=== PATIENT | male | born 1950 | race Caucasian/White ===

== ENCOUNTER → 2019-03-19 | Outpatient (CLI) | payer MEDICARE, MEDICAID, SELFPAY | PROVIDERS: Family Provider Family Medicine; Visit Provider Family Medicine | DX: M79.632 Pain in left forearm (principal) | CPT/HCPCS: 73090 ==

== ENCOUNTER → 2019-03-26 08:46 | Outpatient (BNVA) | payer MEDICARE, MEDICAID, SELFPAY | PROVIDERS: Family Provider Family Medicine; PCP Family Medicine; Visit Provider Psychiatry & Neurology Psychiatry | DX: F33.42 Major depressive disorder, recurrent, in full remission (principal); F43.12 Post-traumatic stress disorder, chronic | CPT/HCPCS: 99213 ==

== ENCOUNTER 2019-04-03 10:56 | Outpatient (CLI) | payer MEDICARE, MEDICAID, SELFPAY ==
[2019-04-03 12:01] LABS: Basophils % 1.1 %; Eosinophils # 0.1 10^3/uL (0.0-0.8); Eosinophils % 1.7 %; Hematocrit 45.5 % (42.0-52.0); Hemoglobin 14.1 g/dL (11.7-16.6); Lymphocytes # 0.8 10^3/uL (0.8-4.8); Lymphocytes % 21.9 %; Mean Corpuscular Volume 93.4 fL (80-94); Mean Platelet Volume 12.5 fL (7.4-10.4); Monocytes # 0.5 10^3/uL (0.2-0.9); Monocytes % 12.5 %; Neutrophils # 2.3 10^3/uL (1.8-7.7); Neutrophils % 62.2 %; Nucleated Red Blood Cells % 0 %; Platelet Count 72 10^3/cmm (130-400); Red Blood Count 4.87 10^6/uL (4.1-5.3); Red Cell Distribution Width 15.7 % (12.1-15.1); White Blood Count 3.6 10^3/uL (4.0-10.0)
--- NOTE | 2019-04-03 14:07 | ONC FU_ITS ---
Dr. Barrera follow up note Patient: Miguel Aguilar Unit #: [id number]: 1950 Dicatated By: Olivia Barrera M.D.Date of Visit:Apr 03, 2019 Onc Med Follow-up/Prog Note History of Present Illness: Mr. Tiago Aguilar, is a 68 -year-old gentleman with history of isolated , mild progressive thrombocytopenia since 2015, as per his PMD in June 2015 his platelet count was 124,000 and recently done CBC on 07/10/2018 showed white blood count 3.9 hemoglobin 14.2 crit 44.3 platelets 81,000 with a normal differential and as per discussion with his PMD, as per record splenomegaly was noted in CT scan of abdomen done in November 2014 and again in July 2016 and recently on 04/16/2018 which confirmed stable splenomegaly with no retroperitoneal or para-aortic lymphadenopathy. Patient is complaining of night sweats for the last 6 month and about 25 pounds weight loss in the last month and half. Appetite is reasonable no fever or chills otherwise, no peripheral lymphadenopathy .no alcohol use Patient has a history of large infrarenal abdominal aortic aneurysm for which he has been followed up by surgeon in [place] Patient denies any history of melena hematochezia or hemoptysis or hematemesis, patient denies any history of petechiae or ecchymosis, patient denies any history of gross bleeding, denies any history of platelet transfusion, denies any history of jaundice, denies any history of urine or stool color changes. Came for follow-up, denies any specific complaints, no melena or hematochezia, no nausea or vomiting, no diarrhea or constipation, no petechiae or ecchymosis no gum bleed of nosebleed. As per patient in 6 weeks ago he underwent abdominal aneurysm repair and tolerated procedure well now left shoulder repair is under consideration. Medications: Advair Diskus Aerosol Powder, Breath Activated Inhalation, Albuterol Sulfate Nebulization solution Inhalation, clonazePAM 1 Tablet (of 1 mg) Oral four times a day PRN, Mobic 1 Tablet (of 15 mg) Oral daily, Morphine Sulfate 2 Tablet (of 30 mg) Oral t.i.d., OxyCONTIN 1 Tablet Oral b.i.d., PriLOSEC 1 Capsule (of 20 mg) Capsule Delayed Release Oral daily, ProAir HFA Aerosol, solution Inhalation daily Allergies: Propofol, traMADol HCl, and traZODone HCl. Review of Systems: Constitutional - Pt reports that his appetite has improved. Weight has increased 2 lbs since last visit, ENMT - He has some hearing loss, Respiratory - He has some shortness of breath on exertion, Cardiovascular - No anginal chest pain, palpitations or orthopnea, Gastrointestinal - No nausea or vomiting, no diarrhea or constipation, no change in bowels, Genitourinary (M) - No hematuria, dysuria, increased frequency, urgency, hesitancy or incontinence, Musculoskeletal - Pt reports chronic back and hip pain, radiating down to feet, Neurologic - No headache, blurred vision, and no areas of focal weakness or numbness. Normal gait. No sensory problems, Psychiatric - Occasional depression. Vital Signs: Performed on Apr 03, 2019 12:50 Height - 65.00 in Weight - 156.4 lbs (HIGH) BSA - 1.78 sq.m BMI - 26.03 Temperature - 98.0 F (LOW) Pulse - 90 /min Respiration - 18 /min BP - 118/60 mm(hg) O2 Sat - 97 % Pain - 7 Performance Status: 2 - Ambulatory/capable of all self-care, unable to perform any work activities. Up and about more than 50% of waking hours. (ECOG) Physical Examination: ENMT - No oral exudates, ulcers, masses, thrush or mucositis. Oropharynx clear. Tongue normal, Respiratory - Lungs are clear to auscultation without rhonchi or wheezing, Cardiovascular - Regular rate and rhythm of heart, Extremities - no edema. Lab/Imaging: Test performed on Apr 03, 2019 11:10 WBC 3.6 10 3/uL RBC 4.87 10^12/L HGB 14.1 g/dL HCT 45.5 % MCV 93.4 fL MCH 29.0 pg MCHC 31.0 g/dL RDW 15.7 % Platelet Count 72 10 3/cmm MPV 12.5 fL Lymphocytes 0.8 10^9/L Neutrophils 0.0 10 3/uL Monocytes 0.5 10^9/L Eosinophils 0.1 10^9/L Basophils 0.0 10^9/L Neutrophil % 1.7 % Manual Lymphocytes 21.9 % Manual Monocytes 12.5 % Manual Eosinophils 1.7 % Manual Basophils 1.1 % NRBCs 0.0 /100 WBC Impression: Isolated mild to moderate thrombocytopenia, etiology unclear could be multifactorial including splenic sequestration due to splenomegaly (seen on repeated CT scan of abdomen done for aneurysm since 2014) and/or medication like Lyrica, omperazole, or even amlodipine and or considering his age underlying myelodysplasia cannot be ruled out, or mild ITP. Night sweats and weight loss, etiology unclear, poor nutrition due to underlying depression/adjustment disorder or social/family issues or lymphoproliferative disorder But Less likely, in the absence of peripheral or central lymphadenopathy and with no evidence of lymphocytosis. Splenomegaly since 2014, etiology unclear, Infrarenal aortic aneurysm Status post repair Plan: Discussed with patient regarding his labs white blood count 3.6 hemoglobin 14.1 crit 46.6 platelets 72,000 Clinically, patient is doing well, no sign symptom suggestive of gross bleeding, hemoglobin is stable, persistent thrombocytopenia but stable platelets count. We'll continue to monitor and he will return to clinic in one month with CBC and manual platelet count. Patient was advised to avoid any kind of trauma or aspirin or NSAIDs. Signed By: Olivia Barrera M.D. <<Signature on File>>
== END 2019-04-03 10:57 | disposition home or self-care (01) ==
LOC: ONCMED 11:00
PROVIDERS: Family Provider Family Medicine; PCP Family Medicine; Visit Provider Internal Medicine Hematology & Oncology
DX: D69.6 Thrombocytopenia, unspecified (principal); R16.1 Splenomegaly, not elsewhere classified; Z79.899 Other long term (current) drug therapy
CPT/HCPCS: 36415; 85025; G0463

== ENCOUNTER 2019-05-08 13:35 | Outpatient (CLI) | payer MEDICARE, MEDICAID, SELFPAY ==
[2019-05-08 14:23] LABS: Hematocrit 44.4 % (42.0-52.0); Hemoglobin 13.9 g/dL (11.7-16.6); Mean Corpuscular HGB Conc 31.3 g/dL (30.0-36.0); Mean Corpuscular Hemoglobin 29.3 pg (28.0-34.0); Mean Corpuscular Volume 93.7 fL (80-94); Mean Platelet Volume 12.7 fL (7.4-10.4); Platelet Count 61 10^3/cmm (130-400); Red Blood Count 4.74 10^6/uL (4.1-5.3); Red Cell Distribution Width 15.6 % (12.1-15.1); White Blood Count 3.9 10^3/uL (4.0-10.0)
[2019-05-08 14:55] LABS: Absolute Segmented Neutrophil 2.6 10/cmm (1.6-7.1); Band Neutrophils Absolute 0.1 10^3/cmm (0.0-1.2); Segmented Neutrophils 68 %; Total Cells Counted 100 (0-100)
[2019-05-08 14:56] LABS: Anisocytosis Trace; Eosinophils 1 %; Lymphocytes 21 %; Monocytes Absolute 0.3 10^3/cmm (0.1-0.6); Platelet Estimate Decreased (Normal)
--- NOTE | 2019-05-09 11:15 | ONC FU_ITS ---
Dr. Barrera follow up note Patient: Miguel Aguilar Unit #: [id number]: 1950 Dicatated By: Olivia Barrera M.D.Date of Visit:May 08, 2019 Onc Med Follow-up/Prog Note History of Present Illness: Mr. Tiago Aguilar, is a 68 -year-old gentleman with history of isolated , mild progressive thrombocytopenia since 2015, as per his PMD in June 2015 his platelet count was 124,000 and recently done CBC on 07/10/2018 showed white blood count 3.9 hemoglobin 14.2 crit 44.3 platelets 81,000 with a normal differential and as per discussion with his PMD, as per record splenomegaly was noted in CT scan of abdomen done in November 2014 and again in July 2016 and recently on 04/16/2018 which confirmed stable splenomegaly with no retroperitoneal or para-aortic lymphadenopathy. Patient is complaining of night sweats for the last 6 month and about 25 pounds weight loss in the last month and half. Appetite is reasonable no fever or chills otherwise, no peripheral lymphadenopathy .no alcohol use Patient has a history of large infrarenal abdominal aortic aneurysm for which he has been followed up by surgeon in [place],and underwent aneurysm repair on 02/01/2019 Came for follow-up, denies any specific complaint except chronic pain involving the shoulder back hips and being managed in pain clinic. Denies any evidence of gross bleeding, no petechiae or ecchymosis no melena or hematochezia no hemoptysis or hematemesis no dysuria or hematuria. Medications: Advair Diskus Aerosol Powder, Breath Activated Inhalation, Albuterol Sulfate Nebulization solution Inhalation, clonazePAM 1 Tablet (of 1 mg) Oral four times a day PRN, Mobic 1 Tablet (of 15 mg) Oral daily, Morphine Sulfate 2 Tablet (of 30 mg) Oral t.i.d., OxyCONTIN 1 Tablet Oral b.i.d., PriLOSEC 1 Capsule (of 20 mg) Capsule Delayed Release Oral daily, ProAir HFA Aerosol, solution Inhalation daily Allergies: Propofol, traMADol HCl, and traZODone HCl. Review of Systems: Review of Systems is not available for this patient. Vital Signs: Performed on May 08, 2019 15:18 Height - 65.00 in Weight - 160.2 lbs (HIGH) BSA - 1.80 sq.m BMI - 26.66 Temperature - 98.3 F (LOW) Pulse - 90 /min Respiration - 18 /min BP - 144/67 mm(hg) (HIGH) O2 Sat - 96 % Pain - 8 Performance Status: 1 - No physically strenuous activity, but ambulatory and able to carry out light or sedentary work (e.g. office work, light house work). (ECOG) Physical Examination: ENMT - No oral exudates, ulcers, masses, thrush or mucositis. Oropharynx clear. Tongue normal, Respiratory - Lungs are clear to auscultation without rhonchi or wheezing, Cardiovascular - Regular rate and rhythm of heart, Abdomen - Non-tender, non-distended, Good bowel sounds. No guarding or rebound tenderness. No pulsatile masses, Extremities - no edema or rash. Lab/Imaging: Test performed on Apr 03, 2019 11:10 WBC 3.6 10 3/uL RBC 4.87 10^12/L HGB 14.1 g/dL HCT 45.5 % MCV 93.4 fL MCH 29.0 pg MCHC 31.0 g/dL RDW 15.7 % Platelet Count 72 10 3/cmm MPV 12.5 fL Lymphocytes 0.8 10^9/L Neutrophils 0.0 10 3/uL Monocytes 0.5 10^9/L Eosinophils 0.1 10^9/L Basophils 0.0 10^9/L Neutrophil % 1.7 % Manual Lymphocytes 21.9 % Manual Monocytes 12.5 % Manual Eosinophils 1.7 % Manual Basophils 1.1 % NRBCs 0.0 /100 WBC Impression: Isolated mild to moderate thrombocytopenia, etiology unclear could be multifactorial including splenic sequestration due to splenomegaly (seen on repeated CT scan of abdomen done for aneurysm since 2014) and/or medication like Lyrica, omperazole, or even amlodipine and or considering his age underlying myelodysplasia cannot be ruled out, or mild ITP. Night sweats and weight loss, etiology unclear, poor nutrition due to underlying depression/adjustment disorder or social/family issues or lymphoproliferative disorder But Less likely, in the absence of peripheral or central lymphadenopathy and with no evidence of lymphocytosis. 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 We'll continue to monitor and return to clinic in 3 months with CBC Signed By: Olivia Barrera M.D. <<Signature on File>>
== END 2019-05-08 13:36 | disposition home or self-care (01) ==
LOC: ONCMED 13:38
PROVIDERS: Family Provider Family Medicine; PCP Family Medicine; Visit Provider Internal Medicine Hematology & Oncology
DX: D69.6 Thrombocytopenia, unspecified (principal); R16.1 Splenomegaly, not elsewhere classified; Z79.891 Long term (current) use of opiate analgesic
CPT/HCPCS: 85007; 85027; G0463

== ENCOUNTER → 2019-05-09 13:03 | Outpatient (BNVA) | payer MEDICARE, MEDICAID, SELFPAY | PROVIDERS: Family Provider Family Medicine; PCP Family Medicine; Visit Provider Anesthesiology | DX: G89.29 Other chronic pain (principal); M54.5 Low back pain; M79.651 Pain in right thigh; M79.652 Pain in left thigh; F17.210 Nicotine dependence, cigarettes, uncomplicated; Z79.891 Long term (current) use of opiate analgesic; Z71.6 Tobacco abuse counseling | CPT/HCPCS: 99214 ==

== ENCOUNTER → 2019-06-25 08:25 | Outpatient (BNVA) | payer MEDICARE, MEDICAID, SELFPAY | PROVIDERS: Family Provider Family Medicine; PCP Family Medicine; Visit Provider Psychiatry & Neurology Psychiatry | DX: F33.42 Major depressive disorder, recurrent, in full remission (principal); F43.12 Post-traumatic stress disorder, chronic; F17.200 Nicotine dependence, unspecified, uncomplicated | CPT/HCPCS: 99213 ==

== ENCOUNTER 2019-09-02 11:56 | Outpatient (CLI) | payer MEDICARE, MEDICAID, SELFPAY ==
[2019-09-02 12:39] LABS: Basophils % 0.8 %; Hematocrit 44.9 % (42.0-52.0); Hemoglobin 14.2 g/dL (11.7-16.6); Lymphocytes # 0.8 10^3/uL (0.8-4.8); Lymphocytes % 21.4 %; Mean Corpuscular HGB Conc 31.6 g/dL (30.0-36.0); Mean Corpuscular Volume 91.8 fL (80-94); Mean Platelet Volume 12.2 fL (7.4-10.4); Monocytes # 0.4 10^3/uL (0.2-0.9); Monocytes % 10.7 %; Neutrophils # 2.5 10^3/uL (1.8-7.7); Neutrophils % 65.6 %; Nucleated Red Blood Cells % 0 %; Platelet Count 67 10^3/cmm (130-400); Red Blood Count 4.89 10^6/uL (4.1-5.3); Red Cell Distribution Width 15.1 % (12.1-15.1); White Blood Count 3.8 10^3/uL (4.0-10.0)
--- NOTE | 2019-09-02 14:33 | ONC FU_ITS ---
Dr. Barrera follow up note Patient: Miguel Aguilar Unit #: [id number]: 1950 Dicatated By: Olivia Barrera M.D.Date of Visit:Sep 02, 2019 Onc Med Follow-up/Prog Note History of Present Illness: Mr. Tiago Aguilar, is a 68 -year-old gentleman with history of isolated , mild progressive thrombocytopenia since 2015, as per his PMD in June 2015 his platelet count was 124,000 and recently done CBC on 07/10/2018 showed white blood count 3.9 hemoglobin 14.2 crit 44.3 platelets 81,000 with a normal differential and as per discussion with his PMD, as per record splenomegaly was noted in CT scan of abdomen done in November 2014 and again in July 2016 and recently on 04/16/2018 which confirmed stable splenomegaly with no retroperitoneal or para-aortic lymphadenopathy. Patient is complaining of night sweats for the last 6 month and about 25 pounds weight loss in the last month and half. Appetite is reasonable no fever or chills otherwise, no peripheral lymphadenopathy .no alcohol use Patient has a history of large infrarenal abdominal aortic aneurysm for which he has been followed up by surgeon in [place],and underwent aneurysm repair on 02/01/2019 Came for follow-up, denies any specific complaints, no nosebleed or gum bleed, no petechia or ecchymosis, no melena or hematochezia, no hemoptysis or hematemesis, or hematuria. Medications: Advair Diskus Aerosol Powder, Breath Activated Inhalation, Albuterol Sulfate Nebulization solution Inhalation, clonazePAM 1 Tablet (of 1 mg) Oral four times a day PRN, Mobic 1 Tablet (of 15 mg) Oral daily, Morphine Sulfate 2 Tablet (of 30 mg) Oral t.i.d., OxyCONTIN 1 Tablet Oral b.i.d., PriLOSEC 1 Capsule (of 20 mg) Capsule Delayed Release Oral daily, ProAir HFA Aerosol, solution Inhalation daily Allergies: Propofol, traMADol HCl, and traZODone HCl. Review of Systems: Constitutional - Pt reports that his appetite has improved. Weight has increased 2 lbs since last visit, ENMT - He has some hearing loss, Respiratory - He has some shortness of breath on exertion, Cardiovascular - No anginal chest pain, palpitations or orthopnea, Gastrointestinal - No nausea or vomiting, no diarrhea or constipation, no change in bowels, Genitourinary (M) - No hematuria, dysuria, increased frequency, urgency, hesitancy or incontinence, Musculoskeletal - Pt reports chronic back and hip pain, radiating down to feet, Neurologic - No headache, blurred vision, and no areas of focal weakness or numbness. Normal gait. No sensory problems, Psychiatric - Positive for anxiety and depression. Vital Signs: Performed on Sep 02, 2019 13:02 Height - 73.00 in (HIGH) Weight - 164.6 lbs (HIGH) BSA - 1.98 sq.m BMI - 21.72 Temperature - 97.5 F (LOW) Pulse - 86 /min Respiration - 30 /min (HIGH) BP - 139/61 mm(hg) O2 Sat - 96 % Pain - 7 Performance Status: 1 - No physically strenuous activity, but ambulatory and able to carry out light or sedentary work (e.g. office work, light house work). (ECOG) Physical Examination: ENMT - No mouth sores, no thrush, no jaundice, Respiratory - Lungs are clear to auscultation, Cardiovascular - Regular rate and rhythm of heart, Abdomen - Soft, bowel sounds present, Extremities - No visible edema. Lab/Imaging: Test performed on Apr 03, 2019 11:10 WBC 3.6 10 3/uL RBC 4.87 10^12/L HGB 14.1 g/dL HCT 45.5 % MCV 93.4 fL MCH 29.0 pg MCHC 31.0 g/dL RDW 15.7 % Platelet Count 72 10 3/cmm MPV 12.5 fL Lymphocytes 0.8 10^9/L Neutrophils 0.0 10 3/uL Monocytes 0.5 10^9/L Eosinophils 0.1 10^9/L Basophils 0.0 10^9/L Neutrophil % 1.7 % Manual Lymphocytes 21.9 % Manual Monocytes 12.5 % Manual Eosinophils 1.7 % Manual Basophils 1.1 % NRBCs 0.0 /100 WBC Impression: Isolated mild to moderate thrombocytopenia, etiology unclear could be multifactorial including splenic sequestration due to splenomegaly (seen on repeated CT scan of abdomen done for aneurysm since 2014) and/or medication like Lyrica, omperazole, or even amlodipine and or considering his age underlying myelodysplasia cannot be ruled out, or mild ITP. Night sweats and weight loss, etiology unclear, poor nutrition due to underlying depression/adjustment disorder or social/family issues or lymphoproliferative disorder But Less likely, in the absence of peripheral or central lymphadenopathy and with no evidence of lymphocytosis. Splenomegaly since 2014, etiology unclear, Infrarenal aortic aneurysm Status post repair Plan: Discussed with patient regarding his labs white blood count 3800 hemoglobin 14.2 hematocrit 44.9 platelets 67,000 with a normal differential Clinically, patient is doing well with no sign suggestive of gross bleeding, his follow-up CBC showed normal hemoglobin and stable mild leukopenia and moderate thrombocytopenia but no significant change when compared with CBC from April 03, 2019, again etiology could be splenic sequestration but cause of splenomegaly still unknown , could be due to portal hypertension or low-grade lymphoproliferative disorder, again role of bone marrow evaluation was discussed and patient declined again, prefer observation, knowing the risks versus benefits. We will continue to monitor patient was advised to avoid NSAID or aspirin or any kind of trauma and he will return to clinic in 3 months with CBC Signed By: Olivia Barrera M.D. <<Signature on File>>
== END 2019-09-02 11:57 | disposition home or self-care (01) ==
LOC: ONCMED 12:01
PROVIDERS: Family Provider Family Medicine; PCP Family Medicine; Visit Provider Internal Medicine Hematology & Oncology
DX: D69.6 Thrombocytopenia, unspecified (principal); R16.1 Splenomegaly, not elsewhere classified; I71.4 Abdominal aortic aneurysm, without rupture; J44.9 Chronic obstructive pulmonary disease, unspecified; M19.90 Unspecified osteoarthritis, unspecified site; R61 Generalized hyperhidrosis; R63.4 Abnormal weight loss
CPT/HCPCS: 85025; G0463

== ENCOUNTER 2019-10-02 13:30 | Outpatient (CLI) | payer MEDICARE, MEDICAID, SELFPAY ==
--- NOTE | 2019-10-02 13:44 | CT_ITS ---
WS: [id number] CT scan of the abdominal aorta. Additional two-dimensional coronal and sagittal reconstruction was pe rformed. MIP images were also performed. 10/02/2019 Clinical Data: AAA WITHOUT RUPTURE Comparison: CT abdomen and pelvis, 04/16/2018. DLP: 3004.[address] scans at [facility] use at least one of these dose optimization techniques: automat ed exposure control; mA and/or kV adjustment per patient size (includes targeted exams where dose is matched to clinical indication); or iterative reconstruction. Findings: Abdominal aorta: There is an aortic stent graft extending throughout the abdominal aorta with the legs into the common iliac arteries. No leakage is seen from the stent graft. The renal arteries, celiac artery and super ior mesenteric arteries appear to be normal. The inferior mesenteric artery is also visualized. Abdominal and pelvic findings: The lower lungs show no nodules, masses or effusions. There are changes of chronic obstructive pulmon linda disease. The liver and pancreas are normal. There is splenomegaly unchanged. There is a left adre nal adenoma and the right adrenal gland is normal. There are clips in the gallbladder fossa from a ch olecystectomy. The kidneys show excellent bilateral contrast excretion with a 2.0 medial right cortic al cyst. The appendix shows no evidence of appendicitis. The stomach, small bowel and colon show only sigmoid diverticula. There is a large amount of fecal material in the colon. No abscess, adenopathy, ascites, mass, obstruction or free air is noted. The bladder and prostate are not remarkable. There is a left hip prosthesis in position. CT/CT angio abdomen pelvis 77990 Impression: 1. Aortic stent graft which shows no leakage and is preparing the abdominal aor tic aneurysm. 2. Multiple chronic abdominal and pelvic findings are unchanged.
[2019-10-02 14:17] LABS: Blood Urea Nitrogen 13 mg/dL (8-23); Glomerular Filtration Rate 83.4 mL/min (90-130)
[2019-10-02] MEDS: iohexol 350 mg/mL 100 mL Btl IV (14:31)
== END 2019-10-02 13:31 | disposition home or self-care (01) ==
LOC: RADWPI 13:34
PROVIDERS: Radiology Diagnostic Radiology; Family Provider Family Medicine; PCP Family Medicine; Visit Provider Surgery
DX: I71.4 Abdominal aortic aneurysm, without rupture (principal)
CPT/HCPCS: 74174; 82565; 84520; Q9967

== ENCOUNTER → 2019-10-09 08:39 | Outpatient (BNVA) | payer MEDICARE, MEDICAID, SELFPAY | PROVIDERS: Family Provider Family Medicine; PCP Family Medicine; Visit Provider Anesthesiology | DX: G89.29 Other chronic pain (principal); M54.41 Lumbago with sciatica, right side; M54.42 Lumbago with sciatica, left side; F17.210 Nicotine dependence, cigarettes, uncomplicated; Z79.891 Long term (current) use of opiate analgesic | CPT/HCPCS: 99214 ==

== ENCOUNTER → 2019-10-11 07:39 | Outpatient (BNVA) | payer MEDICARE, MEDICAID, SELFPAY | PROVIDERS: Family Provider Family Medicine; PCP Family Medicine; Visit Provider Psychiatry & Neurology Psychiatry | DX: F33.42 Major depressive disorder, recurrent, in full remission (principal); F43.12 Post-traumatic stress disorder, chronic | CPT/HCPCS: 99213 ==

== ENCOUNTER → 2019-12-13 08:17 | Outpatient (BNVA) | payer MEDICARE, MEDICAID, SELFPAY | PROVIDERS: Family Provider Family Medicine; PCP Family Medicine; Visit Provider Anesthesiology | DX: G89.29 Other chronic pain (principal); M54.41 Lumbago with sciatica, right side; M54.42 Lumbago with sciatica, left side; F17.210 Nicotine dependence, cigarettes, uncomplicated; Z79.891 Long term (current) use of opiate analgesic | CPT/HCPCS: 99213; 99214 ==

== ENCOUNTER → 2020-01-07 07:30 | Outpatient (BNVA) | payer MEDICARE, MEDICAID, SELFPAY | PROVIDERS: Family Provider Family Medicine; PCP Family Medicine; Visit Provider Psychiatry & Neurology Psychiatry | DX: F43.12 Post-traumatic stress disorder, chronic (principal); F33.42 Major depressive disorder, recurrent, in full remission; F17.200 Nicotine dependence, unspecified, uncomplicated | CPT/HCPCS: 99213 ==

== ENCOUNTER 2020-01-13 10:51 | Outpatient (CLI) | payer MEDICARE, MEDICAID, SELFPAY ==
[2020-01-13 11:18] LABS: Basophils % 0.6 %; Eosinophils % 0.6 %; Hematocrit 42.9 % (42.0-52.0); Hemoglobin 13.6 g/dL (11.7-16.6); Lymphocytes # 0.6 10^3/uL (0.8-4.8); Lymphocytes % 18.4 %; Mean Corpuscular HGB Conc 31.7 g/dL (30.0-36.0); Mean Corpuscular Hemoglobin 28.6 pg (28.0-34.0); Mean Corpuscular Volume 90.1 fL (80-94); Mean Platelet Volume 11.8 fL (7.4-10.4); Monocytes # 0.3 10^3/uL (0.2-0.9); Neutrophils % 71.1 %; Nucleated Red Blood Cells % 0 %; Platelet Count 74 10^3/cmm (130-400); Red Blood Count 4.76 10^6/uL (4.1-5.3); White Blood Count 3.1 10^3/uL (4.0-10.0)
--- NOTE | 2020-01-13 13:52 | ONC FU_ITS ---
Dr. Barrera follow up note Patient: Miguel Aguilar Unit #: [id number]: 1950 Dicatated By: Olivia Barrera M.D.Date of Visit:Jan 13, 2020 Onc Med Follow-up/Prog Note History of Present Illness: Mr. Tiago Aguilar, is a 69 -year-old gentleman with history of isolated , mild progressive thrombocytopenia since 2015, as per his PMD in June 2015 his platelet count was 124,000 and recently done CBC on 07/10/2018 showed white blood count 3.9 hemoglobin 14.2 crit 44.3 platelets 81,000 with a normal differential and as per discussion with his PMD, as per record splenomegaly was noted in CT scan of abdomen done in November 2014 and again in July 2016 and recently on 04/16/2018 which confirmed stable splenomegaly with no retroperitoneal or para-aortic lymphadenopathy. Patient is complaining of night sweats for the last 6 month and about 25 pounds weight loss in the last month and half. Appetite is reasonable no fever or chills otherwise, no peripheral lymphadenopathy .no alcohol use Patient has a history of large infrarenal abdominal aortic aneurysm for which he has been followed up by surgeon in [place],and underwent aneurysm repair on 02/01/2019 Came for follow-up, denies any specific complaints, no fever chills, no nausea or vomiting, no nosebleed or gum bleed no petechia or ecchymosis, no melena or hematochezia, no hematuria Medications: Advair Diskus Aerosol Powder, Breath Activated Inhalation, Albuterol Sulfate Nebulization solution Inhalation, clonazePAM 1 Tablet (of 1 mg) Oral four times a day PRN, Mobic 1 Tablet (of 15 mg) Oral daily, Morphine Sulfate 2 Tablet (of 30 mg) Oral t.i.d., OxyCONTIN 1 Tablet Oral b.i.d., PriLOSEC 1 Capsule (of 20 mg) Capsule Delayed Release Oral daily, ProAir HFA Aerosol, solution Inhalation daily Allergies: Propofol, traMADol HCl, and traZODone HCl. Review of Systems: Constitutional - Pt reports that his appetite has improved. Weight is stable, ENMT - He has some hearing loss, Respiratory - He has some shortness of breath on exertion, Cardiovascular - No anginal chest pain, palpitations or orthopnea, Gastrointestinal - No nausea or vomiting, no diarrhea or constipation, no change in bowels, Genitourinary (M) - No hematuria, dysuria, increased frequency, urgency, hesitancy or incontinence, Musculoskeletal - Pt reports chronic back and hip pain, radiating down to feet, Neurologic - No headache, blurred vision, and no areas of focal weakness or numbness. Normal gait. No sensory problems, Psychiatric - Positive for anxiety and depression. Vital Signs: Performed on Jan 13, 2020 12:32 Height - 73.00 in Weight - 164.8 lbs (HIGH) BSA - 1.98 sq.m BMI - 21.74 Temperature - 98.0 F (LOW) Pulse - 93 /min Respiration - 18 /min BP - 132/68 mm(hg) O2 Sat - 97 % Pain - 7 Performance Status: 0 - Fully active, able to carry on all predisease activities without restrictions. (ECOG) Physical Examination: ENMT - No mouth sores, no thrush, no jaundice, Respiratory - Lungs are clear to auscultation, Cardiovascular - Regular rate and rhythm of heart, Abdomen - Soft, bowel sounds present, Spleen palpable in left upper quadrant, Extremities - No visible edema. Lab/Imaging: Test performed on Sep 02, 2019 12:13 WBC 3.8 10 3/uL RBC 4.89 10 6/uL HGB 14.2 g/dL HCT 44.9 % MCV 91.8 fL MCH 29.0 pg MCHC 31.6 g/dL RDW 15.1 % Platelet Count 67 10 3/cmm MPV 12.2 fL Neutrophils 2.5 10 3/uL Lymphocytes 0.8 10 3/uL Monocytes 0.4 10 3/uL Eosinophils 0.0 10 3/uL Basophils 0.0 10 3/uL Neutrophil % 65.6 % Lymphocyte % 21.4 % Monocyte % 10.7 % Eosinophil % 1.0 % Basophils % 0.8 % NRBC % 0 % Impression: mild to moderate thrombocytopenia,/Leukopenia, etiology unclear could be multifactorial including splenic sequestration due to splenomegaly (seen on repeated CT scan of abdomen done for aneurysm since 2014) and/or medication like Lyrica, omperazole, or even amlodipine and or considering his age underlying myelodysplasia cannot be ruled out, or mild ITP. Night sweats and weight loss, etiology unclear, poor nutrition due to underlying depression/adjustment disorder or social/family issues or lymphoproliferative disorder But Less likely, in the absence of peripheral or central lymphadenopathy and with no evidence of lymphocytosis. Splenomegaly since 2014, etiology unclear, Infrarenal aortic aneurysm Status post repair Plan: Discussed with patient regarding his labs white blood count 3.1 hemoglobin 13.6 hematocrit 42.9 platelets 74,000 compared to 67,000 on September 02, 2019 Clinically, patient is doing well with no sign symptom suggestive of gross bleeding and follow-up labs shows hemoglobin in normal range and persistent but stable mild/moderate thrombocytopenia and leukopenia., Discussed with patient regarding role of bone marrow evaluation again but patient prefer observation knowing the risk versus benefits. Return to clinic in 3 months with CBC Signed By: Olivia Barrera M.D. <<Signature on File>>
== END 2020-01-13 10:52 | disposition home or self-care (01) ==
LOC: ONCMED 10:54
PROVIDERS: PCP Family Medicine; Visit Provider Internal Medicine Hematology & Oncology
DX: D69.6 Thrombocytopenia, unspecified (principal); D72.819 Decreased white blood cell count, unspecified; I71.4 Abdominal aortic aneurysm, without rupture
CPT/HCPCS: 36415; 85025; G0463

== ENCOUNTER → 2020-02-05 09:52 | Outpatient (BNVA) | payer MEDICARE, MEDICAID, SELFPAY | PROVIDERS: PCP Family Medicine; Visit Provider Anesthesiology | DX: G89.29 Other chronic pain (principal); M54.42 Lumbago with sciatica, left side; M54.41 Lumbago with sciatica, right side; F17.210 Nicotine dependence, cigarettes, uncomplicated; Z79.891 Long term (current) use of opiate analgesic | CPT/HCPCS: 99212; 99214 ==

== ENCOUNTER → 2020-04-01 08:33 | Outpatient (BNVA) | payer MEDICARE, MEDICAID, SELFPAY | PROVIDERS: PCP Family Medicine; Visit Provider Anesthesiology | DX: G89.29 Other chronic pain (principal); M54.5 Low back pain; F17.210 Nicotine dependence, cigarettes, uncomplicated; Z79.891 Long term (current) use of opiate analgesic | CPT/HCPCS: 99213 ==

== ENCOUNTER 2020-04-15 11:28 | Outpatient (CLI) | payer MEDICARE, MEDICAID, SELFPAY ==
[2020-04-15 12:11] LABS: Basophils % 0.5 %; Eosinophils % 0.9 %; Hematocrit 43.6 % (42.0-52.0); Hemoglobin 13.5 g/dL (11.7-16.6); Lymphocytes # 0.6 10^3/uL (0.8-4.8); Lymphocytes % 14.2 %; Mean Corpuscular Hemoglobin 28.5 pg (28.0-34.0); Mean Platelet Volume 12.7 fL (7.4-10.4); Monocytes # 0.4 10^3/uL (0.2-0.9); Neutrophils # 3.34 10^3/uL (1.8-7.7); Neutrophils % 75.2 %; Nucleated Red Blood Cells % 0 %; Platelet Count 67 10^3/cmm (130-400); Red Blood Count 4.74 10^6/uL (4.1-5.3); Red Cell Distribution Width 15.8 % (12.1-15.1); White Blood Count 4.4 10^3/uL (4.0-10.0)
--- NOTE | 2020-04-15 13:44 | ONC FU_ITS ---
Dr. Barrera follow up note Patient: Miguel Aguilar Unit #: [id number]: [id number] Dicatated By: Olivia Barrera M.D.Date of Visit:Apr 15, 2020 Onc Med Follow-up/Prog Note History of Present Illness: Mr. Tiago Aguilar, is a 69 -year-old gentleman with history of isolated , mild progressive thrombocytopenia since 2015, as per his PMD in June 2015 his platelet count was 124,000 and recently done CBC on 07/10/2018 showed white blood count 3.9 hemoglobin 14.2 crit 44.3 platelets 81,000 with a normal differential and as per discussion with his PMD, as per record splenomegaly was noted in CT scan of abdomen done in November 2014 and again in July 2016 and recently on 04/16/2018 which confirmed stable splenomegaly with no retroperitoneal or para-aortic lymphadenopathy. Patient is complaining of night sweats for the last 6 month and about 25 pounds weight loss in the last month and half. Appetite is reasonable no fever or chills otherwise, no peripheral lymphadenopathy .no alcohol use Patient has a history of large infrarenal abdominal aortic aneurysm for which he has been followed up by surgeon in [place],and underwent aneurysm repair on 02/01/2019 History of depression being followed in psychiatric clinic Came for follow-up, denies any specific complaint except somewhat emotional as he has lost brother and sister to Covid 19 infection but patient never got exposed. No fever chills, no nausea or vomiting, no diarrhea or constipation, no hemoptysis or hematemesis, no nosebleed, no petechia or ecchymosis, no melena or hematochezia. No night sweats, no recurrent fever or weight loss or peripheral lymphadenopathy or abdominal fullness. Medications: Advair Diskus Aerosol Powder, Breath Activated Inhalation, Albuterol Sulfate Nebulization solution Inhalation, clonazePAM 1 Tablet (of 1 mg) Oral four times a day PRN, Mobic 1 Tablet (of 15 mg) Oral daily, Morphine Sulfate 2 Tablet (of 30 mg) Oral t.i.d., OxyCONTIN 1 Tablet Oral b.i.d., PriLOSEC 1 Capsule (of 20 mg) Capsule Delayed Release Oral daily, ProAir HFA Aerosol, solution Inhalation daily Allergies: Propofol, traMADol HCl, and traZODone HCl. Review of Systems: Constitutional - Pt reports that his appetite has improved. Weight is stable, ENMT - He has some hearing loss, Respiratory - He has some shortness of breath on exertion, Cardiovascular - No anginal chest pain, palpitations or orthopnea, Gastrointestinal - No nausea or vomiting, no diarrhea or constipation, no change in bowels, Genitourinary (M) - No hematuria, dysuria, increased frequency, urgency, hesitancy or incontinence, Musculoskeletal - Pt reports chronic back and hip pain, radiating down to feet, Neurologic - No headache, blurred vision, and no areas of focal weakness or numbness. Normal gait. No sensory problems, Psychiatric - Positive for anxiety and depression. Vital Signs: Performed on Apr 15, 2020 13:14 Height - 73.00 in Weight - 164.8 lbs BSA - 1.98 sq.m BMI - 21.74 Temperature - 98.2 F (LOW) Pulse - 94 /min Respiration - 18 /min BP - 158/71 mm(hg) (HIGH) O2 Sat - 95 % (LOW) Pain - 7 Performance Status: 1 - No physically strenuous activity, but ambulatory and able to carry out light or sedentary work (e.g. office work, light house work). (ECOG) Physical Examination: ENMT - No mouth sores, no thrush, no jaundice, no cervical lymphadenopathy, Respiratory - Lungs are clear to auscultation, Cardiovascular - Regular rate and rhythm of heart, Abdomen - Soft, bowel sounds present, Extremities - No visible edema. Lab/Imaging: Test performed on Jan 13, 2020 11:08 WBC 3.1 10 3/uL RBC 4.76 10 6/uL HGB 13.6 g/dL HCT 42.9 % MCV 90.1 fL MCH 28.6 pg MCHC 31.7 g/dL RDW 15.0 % Platelet Count 74 10 3/cmm MPV 11.8 fL Neutrophils 2.20 10 3/uL Lymphocytes 0.6 10 3/uL Monocytes 0.3 10 3/uL Eosinophils 0.0 10 3/uL Basophils 0.0 10 3/uL Neutrophil % 71.1 % Lymphocyte % 18.4 % Monocyte % 9.0 % Eosinophil % 0.6 % Basophils % 0.6 % NRBC % 0 % Impression: mild to moderate thrombocytopenia,/Leukopenia, etiology unclear could be multifactorial including splenic sequestration due to splenomegaly (seen on repeated CT scan of abdomen done for aneurysm since 2014) and/or medication like Lyrica, omperazole, or even amlodipine and or considering his age underlying myelodysplasia cannot be ruled out, or mild ITP. Night sweats and weight loss, etiology unclear, poor nutrition due to underlying depression/adjustment disorder or social/family issues or lymphoproliferative disorder But Less likely, in the absence of peripheral or central lymphadenopathy and with no evidence of lymphocytosis. Splenomegaly since 2014, etiology unclear, Infrarenal aortic aneurysm Status post repair Plan: Discussed with patient regarding his labs white blood count 4.4 compared to 3100 on September 13, 2019 hemoglobin 13.5 hematocrit 43.6 platelets 67,000 Clinically, patient is doing reasonably well with no evidence of gross bleeding, his follow-up CBC shows normalization of mild leukopenia but persistent moderate thrombocytopenia, discussed with patient again regarding bone marrow evaluation to confirm underlying myelodysplasia or other pathology, finally patient agreed for bone marrow evaluation so we will schedule him for bone marrow procedure and then he will return to clinic 2 weeks after the procedure with CBC and for further discussion based on bone marrow findings. Patient was advised to avoid any kind of trauma or NSAID or aspirin like meds and to call us in case there is evidence of gross bleeding Signed By: Olivia Barrera M.D. <<Signature on File>>
== END 2020-04-15 11:29 | disposition home or self-care (01) ==
PROVIDERS: PCP Family Medicine; Visit Provider Internal Medicine Hematology & Oncology
DX: D69.6 Thrombocytopenia, unspecified (principal); R61 Generalized hyperhidrosis; R63.4 Abnormal weight loss; F32.9 Major depressive disorder, single episode, unspecified; F43.20 Adjustment disorder, unspecified; D47.9 Neoplasm of uncertain behavior of lymphoid, hematopoietic and related tissue, unspecified; R16.1 Splenomegaly, not elsewhere classified; I71.9 Aortic aneurysm of unspecified site, without rupture; Z79.899 Other long term (current) drug therapy
CPT/HCPCS: 36415; 85025; 99214

== ENCOUNTER → 2020-04-29 08:13 | Outpatient (BNVA) | payer MEDICARE, MEDICAID, SELFPAY | PROVIDERS: PCP Family Medicine; Visit Provider Psychiatry & Neurology Psychiatry | DX: F43.12 Post-traumatic stress disorder, chronic (principal); F33.42 Major depressive disorder, recurrent, in full remission; F17.200 Nicotine dependence, unspecified, uncomplicated | CPT/HCPCS: 99213 ==

== ENCOUNTER → 2020-05-27 08:38 | Outpatient (BNVA) | payer MEDICARE, MEDICAID, SELFPAY | PROVIDERS: PCP Family Medicine; Visit Provider Anesthesiology | DX: G89.29 Other chronic pain (principal); M54.5 Low back pain; F17.210 Nicotine dependence, cigarettes, uncomplicated; Z79.891 Long term (current) use of opiate analgesic | CPT/HCPCS: 99213 ==

== ENCOUNTER 2020-06-17 07:52 | Outpatient (CLI) | payer MEDICARE, MEDICAID, SELFPAY ==
[2020-06-17 09:18] LABS: Basophils % 0.6 %; Eosinophils # 0.1 10^3/uL (0.0-0.8); Hematocrit 44.3 % (42.0-52.0); Lymphocytes # 0.7 10^3/uL (0.8-4.8); Lymphocytes % 13.7 %; Mean Corpuscular HGB Conc 31.6 g/dL (30.0-36.0); Mean Corpuscular Hemoglobin 28.2 pg (28.0-34.0); Mean Corpuscular Volume 89.1 fL (80-94); Mean Platelet Volume 12.3 fL (7.4-10.4); Monocytes # 0.4 10^3/uL (0.2-0.9); Monocytes % 7.8 %; Neutrophils # 4.03 10^3/uL (1.8-7.7); Neutrophils % 76.5 %; Nucleated Red Blood Cells % 0 %; Platelet Count 81 10^3/cmm (130-400); Red Blood Count 4.97 10^6/uL (4.1-5.3); White Blood Count 5.3 10^3/uL (4.0-10.0)
[2020-06-17 09:42] LABS: Alanine Aminotransferase 41 U/L (0-41); Albumin Level 3.9 g/dL (3.5-5.2); Alkaline Phosphatase 257 IU/L (40-130); Anion Gap 12.2 (5-19); Aspartate Amino Transferase 35 U/L (0-40); Blood Urea Nitrogen 12 mg/dL (8-23); Calcium 8.7 mg/dL (8.5-10.5); Carbon Dioxide 26 mmol/L (22-29); Chloride 105 mmol/L (98-107); Globulin 3.8 g/dL (1.3-4.6); Glucose 96 mg/dL (65-115); Osmolality Calculated 288 mOsm/kg (285-295); Potassium 4.2 mmol/L (3.5-5.1); Sodium 139 mmol/L (136-145); Total Bilirubin 0.5 mg/dL (0.15-1.2); Total Protein 7.7 g/dL (6.6-8.7)
== END 2020-06-17 07:53 | disposition home or self-care (01) ==
LOC: ONCMED 07:55
PROVIDERS: PCP Family Medicine; Visit Provider Internal Medicine Hematology & Oncology
DX: D64.9 Anemia, unspecified (principal)
CPT/HCPCS: 36415; 80053; 85025

== ENCOUNTER 2020-07-06 07:47 | Outpatient (CLI) | payer MEDICARE, MEDICAID, SELFPAY ==
[2020-07-06 08:38] LABS: Basophils % 0.7 %; Eosinophils # 0.1 10^3/uL (0.0-0.8); Eosinophils % 1.1 %; Hematocrit 45.2 % (42.0-52.0); Hemoglobin 14.2 g/dL (11.7-16.6); Lymphocytes # 0.9 10^3/uL (0.8-4.8); Lymphocytes % 19.1 %; Mean Corpuscular HGB Conc 31.4 g/dL (30.0-36.0); Mean Corpuscular Hemoglobin 28.1 pg (28.0-34.0); Mean Corpuscular Volume 89.5 fL (80-94); Mean Platelet Volume 12.4 fL (7.4-10.4); Monocytes # 0.4 10^3/uL (0.2-0.9); Monocytes % 9.4 %; Neutrophils # 3.16 10^3/uL (1.8-7.7); Neutrophils % 69.3 %; Nucleated Red Blood Cells % 0 %; Platelet Count 93 10^3/cmm (130-400); Red Blood Count 5.05 10^6/uL (4.1-5.3); Red Cell Distribution Width 15.1 % (12.1-15.1); White Blood Count 4.6 10^3/uL (4.0-10.0)
[2020-07-06 08:52] LABS: Alanine Aminotransferase 26 U/L (0-41); Albumin Level 4.2 g/dL (3.5-5.2); Alkaline Phosphatase 228 IU/L (40-130); Anion Gap 13.2 (5-19); Aspartate Amino Transferase 24 U/L (0-40); Blood Urea Nitrogen 14 mg/dL (8-23); Calcium 8.6 mg/dL (8.5-10.5); Carbon Dioxide 27 mmol/L (22-29); Chloride 106 mmol/L (98-107); Globulin 3.2 g/dL (1.3-4.6); Glucose 85 mg/dL (65-115); Osmolality Calculated 294 mOsm/kg (285-295); Potassium 4.2 mmol/L (3.5-5.1); Sodium 142 mmol/L (136-145); Total Bilirubin 0.3 mg/dL (0.15-1.2); Total Protein 7.4 g/dL (6.6-8.7)
== END 2020-07-06 07:48 | disposition home or self-care (01) ==
PROVIDERS: PCP Family Medicine; Visit Provider Internal Medicine Hematology & Oncology
DX: D69.6 Thrombocytopenia, unspecified (principal)
CPT/HCPCS: 80053; 85025

== ENCOUNTER 2020-07-07 05:50 | Outpatient (CLI) | payer MEDICARE, MEDICAID, SELFPAY ==
--- NOTE | 2020-07-07 17:05 | ONC FU_ITS ---
Dr. Barrera follow up note Patient: Miguel Aguilar Unit #: [id number]: [id number] Dicatated By: Olivia Barrera M.D.Date of Visit:Jul 07, 2020 Onc Med Follow-up/Prog Note History of Present Illness: Mr. Tiago Aguilar, is a 69 -year-old gentleman with history of isolated , mild progressive thrombocytopenia since 2015, as per his PMD in June 2015 his platelet count was 124,000 and recently done CBC on 07/10/2018 showed white blood count 3.9 hemoglobin 14.2 crit 44.3 platelets 81,000 with a normal differential and as per discussion with his PMD, as per record splenomegaly was noted in CT scan of abdomen done in November 2014 and again in July 2016 and recently on 04/16/2018 which confirmed stable splenomegaly with no retroperitoneal or para-aortic lymphadenopathy. Patient is complaining of night sweats for the last 6 month and about 25 pounds weight loss in the last month and half. Appetite is reasonable no fever or chills otherwise, no peripheral lymphadenopathy .no alcohol use Patient has a history of large infrarenal abdominal aortic aneurysm for which he has been followed up by surgeon in [place],and underwent aneurysm repair on 02/01/2019 History of depression being followed in psychiatric clinic Came for follow-up, denies any specific complaint except very upset with his , who has multiple medical problem and as per his patient his son is drug addict and not very helpful. , Also complaining of generalized body aches and pains and waiting to see his PMD regarding pain management As per nurse Fair, patient mentioned to her regarding his suicidal ideation. Patient denies any fever or chills denies any nausea or vomiting denies any diarrhea or constipation, denies any hemoptysis or hematemesis denies any dysuria or hematuria denies any petechia or ecchymosis Medications: Advair Diskus Aerosol Powder, Breath Activated Inhalation, Albuterol Sulfate Nebulization solution Inhalation, clonazePAM 1 Tablet (of 1 mg) Oral four times a day PRN, Mobic 1 Tablet (of 15 mg) Oral daily, Morphine Sulfate 2 Tablet (of 30 mg) Oral t.i.d., OxyCONTIN 1 Tablet Oral b.i.d., PriLOSEC 1 Capsule (of 20 mg) Capsule Delayed Release Oral daily, ProAir HFA Aerosol, solution Inhalation daily Allergies: Propofol, traMADol HCl, and traZODone HCl. Review of Systems: Review of Systems is not available for this patient. Vital Signs: Performed on Jul 07, 2020 08:32 Height - 73.00 in Weight - 164.4 lbs (LOW) BSA - 1.98 sq.m BMI - 21.69 Temperature - 98.8 F Pulse - 99 /min Respiration - 18 /min BP - 130/73 mm(hg) O2 Sat - 96 % Pain - 9 Fatigue - 10 Performance Status: 1 - No physically strenuous activity, but ambulatory and able to carry out light or sedentary work (e.g. office work, light house work). (ECOG) Physical Examination: ENMT - No mouth sores, no thrush, no jaundice, Respiratory - Lungs are clear to auscultation, Cardiovascular - Regular rate and rhythm of heart, Abdomen - Soft, bowel sounds present, Extremities - No visible edema or rash. Lab/Imaging: Test performed on Apr 15, 2020 11:47 WBC 4.4 10 3/uL RBC 4.74 10 6/uL HGB 13.5 g/dL HCT 43.6 % MCV 92.0 fL MCH 28.5 pg MCHC 31.0 g/dL RDW 15.8 % Platelet Count 67 10 3/cmm MPV 12.7 fL Neutrophils 3.34 10 3/uL Lymphocytes 0.6 10 3/uL Monocytes 0.4 10 3/uL Eosinophils 0.0 10 3/uL Basophils 0.0 10 3/uL Neutrophil % 75.2 % Lymphocyte % 14.2 % Monocyte % 9.0 % Eosinophil % 0.9 % Basophils % 0.5 % NRBC % 0 % Impression: mild to moderate thrombocytopenia,/Leukopenia, etiology unclear could be multifactorial including splenic sequestration due to splenomegaly (seen on repeated CT scan of abdomen done for aneurysm since 2014) and/or medication like Lyrica, omperazole, or even amlodipine and or considering his age underlying myelodysplasia cannot be ruled out, or mild ITP. Night sweats and weight loss, etiology unclear, poor nutrition due to underlying depression/adjustment disorder or social/family issues or lymphoproliferative disorder But Less likely, in the absence of peripheral or central lymphadenopathy and with no evidence of lymphocytosis. Splenomegaly since 2014, etiology unclear, Infrarenal aortic aneurysm Status post repair Plan: Discussed with patient regarding his labs white blood count 4.6 hemoglobin 14.2 hematocrit 45.2 platelets 93,000 compared to 67 done previously Clinically, patient is doing well with no signs symptom of gross bleeding, hemoglobin stable, his platelet count has improved, earlier patient was scheduled for bone marrow evaluation but patient canceled the procedure. Rather prefer observation As far as generalized body aches and pain, patient said his PMD is managing his pain medications but he is run out of pain medication, will give him Percocet 5/325 mg 1 to 2 tablet 4 to 6-hour we will give him 5 pills until patient see his PMD for his prescription and pain management Other concern is his suicidal ideation, patient is being followed by psychiatry here in [place], our office contacted his psychiatrist's office and patient was sent to be [facility] for evaluation Return to clinic in 2 months with CBC Signed By: Olivia Barrera M.D. <<Signature on File>>
== END 2020-07-07 05:51 | disposition home or self-care (01) ==
PROVIDERS: PCP Family Medicine; Visit Provider Internal Medicine Hematology & Oncology
DX: D69.6 Thrombocytopenia, unspecified (principal); R61 Generalized hyperhidrosis; R63.4 Abnormal weight loss; F32.9 Major depressive disorder, single episode, unspecified; F43.20 Adjustment disorder, unspecified; R16.1 Splenomegaly, not elsewhere classified; I71.9 Aortic aneurysm of unspecified site, without rupture; Z79.899 Other long term (current) drug therapy
CPT/HCPCS: 99214

== ENCOUNTER 2020-07-07 09:23 | Emergency (ER) | payer MEDICARE, MEDICAID, SELFPAY ==
[2020-07-07 09:25] VITALS: BP 115/73; PULSE 100; RESP 17; TEMP 36.5; O2SAT 99; BMI 21.7
--- NOTE | 2020-07-07 09:37 | ED_ITS ---
HPI - Psych General: Chief Complaint: Psychiatric Symptoms Stated Complaint: BEHAVIORAL ISSUES, PSYCH EVAL Time Seen by Provider: 07/07/20 09:24 History of Present Illness: HPI Narrative: Patient is a 69-year-old male comes to the ED for mental health evaluation. Patient was brought here to the ED via EMS after they received a call from an oncology nurse stating that she heard patients that he wanted to harm himself. EMS brought patient here to the ED for evaluation and they said that patient has been denying any thoughts of SI. Patient says he has a history of depression and PTSD. He states that he is just currently a little more stressed out and depressed lately because he is having to take care of his and she has multiple health issues going on right now. He denies making any comment about SI to oncology nurse. He says he has to drive her to [place] for doctors appointments a couple times a week which is wearing on him. He says he is having poor sleep and tosses and turns due to stress throughout the night denies any thoughts of HI or SI. He says he has been seen behavioral health for years now and has an appointment set up for next week to see his psychiatrist. Patient denies any auditory or visual hallucinations. Patient adamantly denies any SI or HI. Associated symptoms: Reports depression; Deny auditory hallucinations, visual hallucinations, homicidal ideation or suicidal ideation Review of Systems Const: Denies: fever(s), chills or fatigue Eyes: Denies: change in vision or eye discomfort ENMT: Denies: throat pain, odynophagia, nasal discharge or nasal congestion Card: Denies: chest pain, palpitations, edema, swelling of feet/ankles, dyspnea on exertion or orthopnea Resp: Denies: dyspnea, productive cough or non-productive cough GI: Denies: abdominal pain, nausea, vomiting, diarrhea, constipation or hematochezia : Denies: flank pain, difficulty urinating, dysuria or hematuria Musc: Denies: neck pain, back pain or extremity swelling Skin/Breast: Denies: rash or new lesions Neuro: Denies: headache(s), numbness in extremities or weakness in extremities Psych: Reports: anxiety, depression and sleeping less; Denies: visual hallucinations, auditory hallucinations, suicidal ideation or homicidal ideation [facility] ED PFSH: Medical History Chronic low back pain 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) use of non-steroidal anti-inflammatories (nsaid) Major depressive disorder, recurrent, in full remission Opioid contract exists Post-traumatic stress disorder, chronic Smoker Surgical History H/O skin graft History of hip surgery History of shoulder surgery Family History Other CAD (coronary artery disease) Cancer Lung disease Social History Smoking and tobacco status: current every day smoker cigarettes Alcohol intake: never History of recent travel: No Physical Exam Const: COMMON NORMALS: no acute distress, patient oriented x3 and alert GENERAL APPEARANCE: cooperative and comfortable HENMT: COMMON NORMALS: normocephalic HEAD & SCALP: normocephalic MOUTH: Normal oral and palatal mucosa present THROAT: posterior oropharynx normal and uvula midline Neck/C-Spine: COMMON NORMALS: supple GENERAL: Yes normal visual inspection Resp: COMMON NORMALS: normal respiratory effort, No retractions, No use of accessory muscles and clear to auscultation bilaterally AUSCULTATION: clear to auscultation bilaterally Cardio: COMMON NORMALS: regular rate, regular rhythm, S1 normal heart sound present, S2 normal heart sound present, No gallops present (Cardio), No clicks present (Cardio), No murmurs present (Cardio) and Peripheral pulses 2+ throughout RATE: regular rate RHYTHM: regular rhythm HEART SOUNDS: S1 normal heart sound present and S2 normal heart sound present PERIPHERAL PULSES: Peripheral pulses 2+ throughout GI: COMMON NORMALS: Normal to inspection, nondistended, normoactive bowel sounds present, Soft to palpation, non-tender and no masses PALPATION: Yes Soft to palpation : COMMON NORMALS: Yes no CVA tenderness BLADDER/KIDNEY EXAM: Yes no CVA tenderness Back/Pelvis: COMMON NORMALS: no CVA tenderness Extremity: COMMON NORMALS: normal to inspection Neuro: COMMON NORMALS: patient oriented x3 and moves all extremities SENSORIUM/ORIENTATION: Yes alert Psych: COMMON NORMALS: mental status grossly normal, Normal thought process present, cooperative, normal affect, speech normal, activity/motor behavior normal, denies hallucinations, denies homicidal ideation and denies suicidal ideation ATTITUDE: Yes calm and Yes engaged ACTIVITY/MOTOR BEHAVIOR: Yes appropriate eye contact SPEECH: Yes normal speech MOOD & AFFECT: Yes anxious THOUGHT PROCESS: Normal thought process present INSIGHT: Good insight present (Psych) JUDGEMENT: Good judgement present (Psych) Skin: GENERAL SKIN EXAM: dry skin MDM - Psych MDM Narrative: Medical decision making narrative: Patient strongly denies any SI or HI and denies making any SI comment to oncology nurse. EMS told nursing staff when they brought patient here to the ED that he was denying any SI to them as well. Upon exam patient's mental status is normal and he does state he has a little bit of anxiety and stress due to having to help take care of his due to her recent health problems. He denies any SI, HI, auditory or visual hallucinations. He states that he sees behavioral health regularly and has a scheduled appointment next week with his psychiatrist. Patient's mental status is normal and exam shows good insight and judgment. Patient wants to go home and rest. Patient diagnosed with stress due to illness of a family member and discharged home. He has follow-up with psychiatrist next week. Discharge Plan Discharge Patient Disposition: Home Clinical Impression: Stress due to illness of family member Condition: Stable Prescriptions: No Action clonazepam [Klonopin] 1 mg tablet 1 mg PO QID Qty: 120 RF: 3 morphine 60 mg tablet extended release 60 mg PO Q12H 30 Days Qty: 60 RF: 0 morphine 60 mg tablet extended release 60 mg PO Q12H 30 Days Qty: 60 RF: 0 oxycodone [OxyContin] 20 mg tablet,oral only,ext.rel.12 hr 20 mg PO BID 30 Days Qty: 60 RF: 0 oxycodone [OxyContin] 20 mg tablet,oral only,ext.rel.12 hr 20 mg PO BID 30 Days Qty: 60 RF: 0 ropinirole 0.5 mg tablet 0.5 mg PO .QHS Qty: 30 RF: 2 Discharge Orders: Discharge ED (Routine); Ordered 07/07/20 Ordered By: Nicholas Garcia Referrals: Nicholas Bergman MD [Primary Care Provider] - Discharge Diet: Regular Discharge Activity: Resume usual activity Patient Instructions: Stress (ED) Activity Restrictions/Additional Instructions: Follow-up with your psychiatrist with behavioral health at your scheduled appointment next week. Continue taking all home medications as prescribed. Return to the ER or your medical provider if condition worsens. Please read and understand discharge instructions. If any questions, please ask. Coding Level of Care Code ED [employer] for Chg Fwd Exam Comprehensive
[2020-07-07 11:11] VITALS: BP 115/73; PULSE 100; RESP 18; TEMP 36.5; O2SAT 99
== END 2020-07-07 11:31 | disposition home or self-care (01) ==
PROVIDERS: Emergency Provider Physician Assistant; PCP Family Medicine
DX: Z73.3 Stress, not elsewhere classified (principal); F17.210 Nicotine dependence, cigarettes, uncomplicated
CPT/HCPCS: 99283

== ENCOUNTER → 2020-08-06 10:28 | Outpatient (BNVA) | payer MEDICARE, MEDICAID, SELFPAY | PROVIDERS: PCP Family Medicine; Visit Provider Anesthesiology | DX: G89.29 Other chronic pain (principal); M54.5 Low back pain; F17.210 Nicotine dependence, cigarettes, uncomplicated; Z79.891 Long term (current) use of opiate analgesic | CPT/HCPCS: 99213 ==

== ENCOUNTER → 2020-08-26 07:28 | Outpatient (BNVA) | payer MEDICARE, MEDICAID, SELFPAY | PROVIDERS: PCP Family Medicine; Visit Provider Psychiatry & Neurology Psychiatry | DX: F43.12 Post-traumatic stress disorder, chronic (principal); F33.42 Major depressive disorder, recurrent, in full remission; F17.200 Nicotine dependence, unspecified, uncomplicated | CPT/HCPCS: 99213 ==

== ENCOUNTER → 2020-09-29 09:39 | Outpatient (BNVA) | payer MEDICARE, MEDICAID, SELFPAY | PROVIDERS: PCP Family Medicine; Visit Provider Anesthesiology | DX: G89.29 Other chronic pain (principal); M54.5 Low back pain; F17.210 Nicotine dependence, cigarettes, uncomplicated; Z79.891 Long term (current) use of opiate analgesic | CPT/HCPCS: 99213 ==

== ENCOUNTER 2020-10-05 13:02 | Emergency (ER) | payer MEDICARE, MEDICAID, SELFPAY ==
[2020-10-05] VITALS (9 sets, daily range): BP systolic 123–138; BP diastolic 60–85; PULSE 82–98; RESP 14–19; TEMP 36.7; O2SAT 93–96; BMI 21.9
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
[2020-10-05 16:15] LABS: Basophils % 0.5 %; Eosinophils % 0.5 %; Hematocrit 42.3 % (42.0-52.0); Hemoglobin 13.4 g/dL (11.7-16.6); Lymphocytes # 0.6 10^3/uL (0.8-4.8); Lymphocytes % 14.5 %; Mean Corpuscular HGB Conc 31.7 g/dL (30.0-36.0); Mean Corpuscular Hemoglobin 28.7 pg (28.0-34.0); Mean Corpuscular Volume 90.6 fL (80-94); Mean Platelet Volume 12.7 fL (7.4-10.4); Monocytes # 0.4 10^3/uL (0.2-0.9); Monocytes % 8.6 %; Neutrophils # 3.18 10^3/uL (1.8-7.7); Neutrophils % 75.4 %; Nucleated Red Blood Cells % 0 %; Platelet Count 74 10^3/cmm (130-400); Red Blood Count 4.67 10^6/uL (4.1-5.3); Red Cell Distribution Width 15.6 % (12.1-15.1); White Blood Count 4.2 10^3/uL (4.0-10.0)
[2020-10-05] MEDS: iodixanol 320 mg/mL 100mL Btl IV (16:21)
[2020-10-05 16:29] LABS: Alanine Aminotransferase 37 U/L (0-41); Alkaline Phosphatase 265 IU/L (40-130); Anion Gap 12.5 (5-19); Aspartate Amino Transferase 41 U/L (0-40); Blood Urea Nitrogen 14 mg/dL (8-23); Calcium 8.9 mg/dL (8.5-10.5); Carbon Dioxide 29 mmol/L (22-29); Chloride 105 mmol/L (98-107); Globulin 3.5 g/dL (1.3-4.6); Glucose 94 mg/dL (65-115); Osmolality Calculated 294 mOsm/kg (285-295); Potassium 4.5 mmol/L (3.5-5.1); Sodium 142 mmol/L (136-145); Total Bilirubin 0.6 mg/dL (0.15-1.2); Total Protein 7.5 g/dL (6.6-8.7)
[2020-10-05 17:27] LABS: Bilirubin Urine Neg (Negative); Blood Urine 2+ (Negative); Glucose Urine UA Norm (Normal); Ketones Urine Negative (Negative); Leukocyte Esterase Urine Negative (Negative); Nitrate Urine Negative (Negative); Protein Urine Neg (Negative); Urine Appearance Clear (CLEAR); Urine Color Yellow (Yellow); Urobilinogen Urine 4 mg/dL (Negative); pH Urine 7 (5-7)
[2020-10-05 17:28] LABS: Add Urine Microscopic? YES
[2020-10-05 17:29] LABS: Add Urine Culture? No; Bacteria Urine TRACE /hpf; Coarse Granular Casts Urine 0-4 /lpf; Mucus Urine 2+ /hpf; Squamous Epithelial Cell Urine 0-4 /hpf (0-5); WBC Urine 0-4 /hpf (0-5)
[2020-10-05] MEDS: morphine 4 mg/mL SDV 1 mL 2 MG IVP (19:00)
[2020-10-05] MEDS: nicotine 21 mg Patch 1 PATCH TRANSDERMA (19:06)
[2020-10-05] MEDS: sodium chloride 0.9% 1,000 ML 200 ML IV (20:21)
--- NOTE | 2020-10-05 20:29 | PC.NURSE ---
pt refusing ativan stating it does me no good. requesiting 0.5 of klonopin
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
[2020-10-05] MEDS: CLONazepam 1 mg Tablet 0.5 MG PO (20:36)
--- NOTE | 2020-10-05 22:24 | PC.NURSE ---
patient requesting to leave AMA; Dr. Tamez to room to talk with patient; patient advised to follow up with ortho and to keep c-collar in place till cleared by ortho. AMA form completed.
--- NOTE | 2020-10-06 03:39 | PC.NURSE ---
pt becoming increasingly agitated, requesting food, stating he haven't eaten since 1oclock in the afternoon yesterday. Pt informed Dr will be notified of his request. Pt stating he will not wait any longer and will check out if he can not eat. Pt standing at the nurses station, becoming louder with his request. Dr notified. Physician attempted to speak with pt regarding his condition and the risks of or disability if he leaves AMA. Pt stating It's my right to leave if I want to. I understand the risk . Physician ok the AMA to be signed. Form witnessed by staff. IV pulled by weigh and charge worker. Pt left unit without further difficulties or complaints
--- NOTE | 2020-10-06 04:19 | PC.PHAR ---
Vancomycin is dosed at 1250mg IVPB every 12 hours to produce a predicted trough level of 16.72 (population based pharmacokinetic analysis). A trough level has been ordered from the lab to be obtained before the fourth dose to confirm and adjust if needed. The Zosyn is dosed at 3.375gm IVPB every 8 hours on the basis of the creatinine clearance of 90.99.
--- NOTE | 2020-10-06 09:14 | DCPLANNER ---
guest service manager had message to schedule a follow up appointment for patient with Dr. Campoverde at ortho. guest service manager called the ortho clinic, spoke with Dianna, gave clinic patients information. guest service manager was told that patients information would be printed and reviewed. Clinic will call patient with appointment information.
--- NOTE | 2020-10-07 13:25 | DCPLANNER ---
Patient has a follow up appointment scheduled for , October 08, 2020 at 10:[address] Campoverde. Clinic will call patient with appointment information.
--- NOTE | 2020-11-06 13:47 | DCPLANNER ---
Patient had a follow up appointment scheduled for 10.08.20 with ortho - patient did attend appointment.
== END 2020-10-05 22:18 | disposition left against medical advice (07) ==
PROVIDERS: Physician Assistant; Emergency Provider Family Medicine; PCP Family Medicine; Visit Provider Internal Medicine
DX: S12.600A Unspecified displaced fracture of seventh cervical vertebra, initial encounter for closed fracture (principal); Z53.21 Procedure and treatment not carried out due to patient leaving prior to being seen by health care provider; F17.210 Nicotine dependence, cigarettes, uncomplicated; V89.2XXA Person injured in unspecified motor-vehicle accident, traffic, initial encounter
CPT/HCPCS: 70450; 71045; 71260; 72072; 72100; 72125; 73030; 74177; 80053; 81001; 85025; 96361; 96374; 99284; J2060; J2270; J7030; Q9967

== ENCOUNTER 2020-10-08 15:49 | Outpatient (CLI) | payer MEDICARE, MEDICAID, SELFPAY | END 2020-10-08 15:50 | disposition home or self-care (01) | LOC: SPT 15:50 | PROVIDERS: PCP Family Medicine; Visit Provider Orthopaedic Surgery | DX: Z46.89 Encounter for fitting and adjustment of other specified devices (principal); S12.600D Unspecified displaced fracture of seventh cervical vertebra, subsequent encounter for fracture with routine healing; X58.XXXD Exposure to other specified factors, subsequent encounter | CPT/HCPCS: 97760; L0174 ==

== ENCOUNTER → 2020-12-04 08:44 | Outpatient (BNVA) | payer MEDICARE, MEDICAID, SELFPAY | PROVIDERS: PCP Family Medicine; Visit Provider Anesthesiology | DX: G89.29 Other chronic pain (principal); M54.5 Low back pain; M54.2 Cervicalgia; F17.210 Nicotine dependence, cigarettes, uncomplicated; Z79.891 Long term (current) use of opiate analgesic; Z71.6 Tobacco abuse counseling | CPT/HCPCS: 99214 ==

== ENCOUNTER → 2020-12-23 09:07 | Outpatient (BNVA) | payer MEDICARE, MEDICAID, SELFPAY | PROVIDERS: PCP Family Medicine; Visit Provider Psychiatry & Neurology Psychiatry | DX: F43.12 Post-traumatic stress disorder, chronic (principal); F33.42 Major depressive disorder, recurrent, in full remission; F17.200 Nicotine dependence, unspecified, uncomplicated | CPT/HCPCS: 99214 ==

== ENCOUNTER → 2021-01-28 08:59 | Outpatient (BNVA) | payer MEDICARE, MEDICAID, SELFPAY | PROVIDERS: PCP Family Medicine; Visit Provider Anesthesiology | DX: G89.29 Other chronic pain (principal); M54.50 Low back pain, unspecified; M54.2 Cervicalgia; Z79.891 Long term (current) use of opiate analgesic; Z87.891 Personal history of nicotine dependence | CPT/HCPCS: 99214 ==

== ENCOUNTER → 2021-04-02 08:37 | Outpatient (BNVA) | payer MEDICARE, MEDICAID, SELFPAY | PROVIDERS: PCP Family Medicine; Visit Provider Anesthesiology | DX: G89.29 Other chronic pain (principal); M54.50 Low back pain, unspecified; M54.2 Cervicalgia; Z79.891 Long term (current) use of opiate analgesic; Z87.891 Personal history of nicotine dependence | CPT/HCPCS: 99214 ==

== ENCOUNTER → 2021-04-26 08:36 | Outpatient (BNVA) | payer MEDICARE, MEDICAID, SELFPAY | PROVIDERS: PCP Family Medicine; Visit Provider Psychiatry & Neurology Psychiatry | DX: F43.12 Post-traumatic stress disorder, chronic (principal); F33.42 Major depressive disorder, recurrent, in full remission; F17.200 Nicotine dependence, unspecified, uncomplicated | CPT/HCPCS: 99214 ==

== ENCOUNTER 2021-07-14 10:50 | Observation (INO) | payer MEDICARE, MEDICAID, SELFPAY ==
[2021-07-14] VITALS (11 sets, daily range): BP systolic 95–133; BP diastolic 57–74; PULSE 82–113; RESP 14–26; TEMP 36.2–37; O2SAT 94–98; BMI 19.0; BMI 17.0
--- NOTE | 2021-07-14 11:11 | XR_ITS ---
WS: [id number] Portable AP upright chest, 07/14/2021 Clinical Data: dyspnea/cough Comparison: Portable chest, 10/05/2020. Findings: There is a large left upper lobe density measuring in greatest dimension 18 cm with a centr al loculated air collection. The right lung shows no nodules, masses or effusions. No left pleural ef fusion is seen. This left upper lobe mass in density distal left trachea and deviates it slightly fro m left to right. The heart size is normal. The diaphragms are flattened. XR/XR chest 1V portable [id number] Impression: 1. Large left upper lobe density which could represent a large carcinoma of the lung with central air. 2. Hyperinflation. 3. Recommend CT chest.
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
--- NOTE | 2021-07-14 11:12 | ECG_ITS ---
[facility] Test Date: 2021-07-14 Pat Name: Miguel Aguilar Department: Room: Gender: Male Bee Tender: : 1950 Requested By: Rah Lyman Order Number: [id number] Christofer MD: Ammon Weller M.D. Measurements Intervals [place] Rate: 84 P: 85 WI: 141 QRS: 45 QRSD: 73 T: 94 QT: 351 QTc: 415 Interpretive Statements SINUS RHYTHM NONSPECIFIC T-WAVE ABNORMALITY Compared to ECG 07/14/2021 13:34:37 T-wave abnormality now present Ectopic atrial rhythm no longer present Electronically Signed On 07-14-2021 16:56:54 CDT by Ammon Weller M.D. [id number]
[2021-07-14 11:21] LABS: Basophils % 0.6 %; Eosinophils # 0.1 10^3/uL (0.0-0.8); Eosinophils % 0.7 %; Hematocrit 39.8 % (42.0-52.0); Lymphocytes # 0.5 10^3/uL (0.8-4.8); Lymphocytes % 7.4 %; Mean Corpuscular HGB Conc 30.2 g/dL (30.0-36.0); Mean Corpuscular Hemoglobin 26.9 pg (28.0-34.0); Mean Corpuscular Volume 89.2 fl (80-94); Mean Platelet Volume 10.9 fL (7.4-10.4); Monocytes # 0.5 10^3/uL (0.2-0.9); Monocytes % 7.1 %; Neutrophils # 5.66 10^3/uL (1.8-7.7); Neutrophils % 83.3 %; Nucleated Red Blood Cells % 0 %; Platelet Count 140 10^3/cmm (130-400); Red Blood Count 4.46 10^6/uL (4.1-5.3); Red Cell Distribution Width 16.5 % (12.1-15.1); White Blood Count 6.8 10^3/uL (4.0-10.0)
[2021-07-14 11:27] LABS: ABG PCO2 32.2 mmHg (35-45); ABG PH Result 7.46 (7.35-7.45); Alveolar-Arterial Oxygen Gradi 4.1 mmHg (5-10); Arterial Blood Gas Hematocrit 35.2 % (42-52); Base Excess ABG -0.3 mmol/L (-2.0-2.0); Blood Gas Allen Test Pos; Blood Gas Operator Identificat AMH; Blood Gas Sample Site Radial, right; Blood Gas Sample Type Arterial; Carboxyhemoglobin 2.5 %THgb (0.4-20.1); Ionized Calcium Level - ABG 1.2 mmol/L (1.1-1.4); Methemoglobin 0.8 % (0.4-1.5); Oxygen Device ROOM AIR; Oxygen Saturation ABG 97.3; PO2 ABG 78.6 mmHg (80.0-100.0); Potassium Level - ABG 3.7 mmol/L (3.5-5.0); Total Hemoglobin 11.5 g/dL (14-18)
[2021-07-14 11:50] LABS: Alanine Aminotransferase 23 U/L (0-41); Albumin Level 3.1 g/dL (3.5-5.2); Alkaline Phosphatase 223 IU/L (40-130); Aspartate Amino Transferase 21 U/L (0-40); Blood Urea Nitrogen 14 mg/dL (8-23); Calcium 8.3 mg/dL (8.5-10.5); Carbon Dioxide 23 mmol/L (22-29); Chloride 109 mmol/L (98-107); Creatinine Clr Calc Pharmacy 74.9688; Globulin 4.5 g/dL (1.3-4.6); Glucose 114 mg/dL (65-115); Osmolality Calculated 295 mOsm/kg (285-295); Sodium 142 mmol/L (136-145); Total Bilirubin 0.3 mg/dL (0.15-1.2); Total Protein 7.6 g/dL (6.6-8.7); Troponin(5th) Baseline 10 ng/L (0-15)
--- NOTE | 2021-07-14 12:13 | CT_ITS ---
WS: [id number] CTA CHEST WITH CT ABDOMEN AND PELVIS. HISTORY: Short of breath, nausea and vomiting for 8 to 9 [address] TECHNIQUE: CT angiogram is performed through the chest. Additional imaging is performed through the a bdomen and pelvis with IV contrast. Sagittal and coronal reformats have been submitted. MIP imaging also reviewed. All CT scans at [facility] use at least one of these dose optimization techniqu es: automated exposure control; mA and/or kV adjustment per patient size (includes targeted exams whe re dose is matched to clinical indication); or iterative reconstruction. Contrast: Omnipaque 350; 95 cc IV. DLP: 1215.84 mGy.cm COMPARISON: 10/05/2020 Chest CTA: Very good opacification of the pulmonary arteries. No filling defects or pulmonary emboli are identified. Normal-sized thoracic aorta with moderate atherosclerotic plaque. No dissection or an eurysm. Severe emphysema. There is a large cavitary lesion occupying essentially the entire LEFT upper lobe. Soft tissue and ca vitary components are extensive. There are numerous foci of air within the soft tissue mass which ext ends into the lingula. The mass abuts the LEFT mediastinum, aorta, pulmonary artery and LEFT heart. T here is partial encasement and narrowing of the pulmonary arteries. Mass measures at least 13.4 x 9.4 cm. Additional subsolid areas of opacification in the LEFT lower lobe and a few small nodules in the RIGH T lobe which may be metastatic sites or inflammation. There are no numerous enlarged and abnormal lymph nodes beginning in the LEFT supraclavicular region. Confluent cluster of lymph nodes in the supraclavicular region measures 2.7 x 3.3 cm. Enlarged RIGHT supraclavicular lymph nodes. There is an additional LEFT sentinel lymph node measuring 1.3 cm. Abnor mal lymph nodes continue through the anterior mediastinum encasing the pulmonary artery and the aorta . Adenopathy extension into the AP window. Enlarged lymph nodes along the superior and inferior RIGHT paratracheal region. Bilateral hilar lymph nodes and subcarinal lymph node. Increased soft tissue extends along the RIGHT lower lobe pulmonary artery. Abdomen CT: Liver is normal size. Mild dilatation of the central bile ducts similar to the prior stud y. Portal vein is normal. No metastatic lesions are identified within the liver. Marked enlargement o f the spleen. Spleen measures 20 cm in length. Mild variability of enhancement within the central spl een may be due to phase of injection. Prior cholecystectomy. Normal size pancreas. Mildly prominent p ancreatic duct and common bile duct at the pancreatic head. No mass identified. Normal RIGHT adrenal gland. There is an enhancing nodule measuring 2.1 x 2.5 cm in the region of the LEFT adrenal gland. T his nodule has increased in size since 10/05/2020. No renal obstruction. Stable RIGHT renal cyst. The aorta is normally enhancing. Patient is status post endovascular repair of the aneurysm. No endoleak or enlarging [place] aneurysm. Numerous varices extend toward the spleen. No GI tract obstruction. There is mild diffuse hyperemia o f the small bowel with mildly prominent diameter of the small bowel. No obstruction. No free air is i dentified. There is mild soft tissue anasarca throughout the abdomen. The appendix appears normal. No colon obstruction. Pelvic CT: Small amount of free fluid in the pelvis. Urinary bladder is well distended. Status post LEFT hip arthroplasty. No destructive bone lesions are identified. CT/CT angio chest w abd pel w con IMPRESSION: 1. Significant progression of the previously described cavitary lesion in the LEFT upper lobe. The entire LEFT upper lobe is now filled with soft tissue mass and cavitation with abutment along the mediastinum and bronchovascular structu res. Partial narrowing and encasement of several of the pulmonary artery branch es. 2. Extensive lymphadenopathy including the LEFT sentinel node, bilateral supra clavicular, bilateral mediastinal and hilar lymph nodes. 3. Enlarging soft tissue mass in the LEFT abdomen. I believe this is probably a metastatic lesion in the LEFT adrenal gland. A separate adrenal gland is not evident. 4. No metastatic disease within the liver. 5. Prior cholecystectomy. There is mild central hepatic biliary dilatation whi ch is probably on the basis of the cholecystectomy. No pancreatic head mass anna ntified. 6. Small amount of free fluid in the pelvis with soft tissue anasarca. 7. Mild hyperemia of the small bowel mucosa but no obstruction. 8. Marked splenomegaly with gastrosplenic varices. 9. No pulmonary embolism. 10. Possible early metastatic sites in the LEFT lower lobe and central RIGHT l kishor. 11. Endovascular graft repair aorta. 1
[2021-07-14] MEDS: sodium chloride 0.9% 1,000 ML 999 ML IV (12:19)
[2021-07-14] MEDS: metoprolol tartrate 1 mg/1 mL SDV 5 mL 2.5 MG IVP (12:20)
[2021-07-14] MEDS: metoprolol tartrate 25 mg Tablet PO ×2 (12:20→20:41)
[2021-07-14 12:35] LABS: Add Urine Microscopic? YES; Bilirubin Urine Neg (Negative); Blood Urine 2+ (Negative); Glucose Urine UA Norm (Normal); Ketones Urine Negative (Negative); Leukocyte Esterase Urine Negative (Negative); Nitrate Urine Negative (Negative); Protein Urine Neg (Negative); Specific Gravity, Urine 1.007 (1.005-1.030); Urine Appearance Clear (CLEAR); Urine Color Yellow (Yellow); Urobilinogen Urine Norm (Negative); pH Urine 5 (5-7)
[2021-07-14 12:40] LABS: Add Urine Culture? No; RBC Urine 0-4 /hpf (0-2); Squamous Epithelial Cell Urine 0-4 /hpf (0-5); WBC Urine 0-4 /hpf (0-5)
--- NOTE | 2021-07-14 13:12 | ECG_ITS ---
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 Measurements Intervals [place] Rate: 86 P: 125 MN: 146 QRS: 58 QRSD: 73 T: 102 QT: 356 QTc: 427 Interpretive Statements Sinus RHYTHM ABNORMAL RHYTHM ECG Compared to ECG 07/14/2021 11:24:47 No change Electronically Signed On 07-14-2021 17:05:36 CDT by Ammon Weller M.D. [email or web address]/[id number]
[2021-07-14] MEDS: iohexol 350 mg/mL 100 mL Btl IV (13:22)
[2021-07-14] MEDS: morphine 4 mg/mL SDV 1 mL IVP (13:45)
[2021-07-14] MEDS: LORazepam 2 mg/mL INJ 1 mL IVP (15:54)
--- NOTE | 2021-07-14 17:12 | ECG_ITS ---
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 Measurements Intervals [place] Rate: 110 P: [place]: QRS: 33 QRSD: 74 T: 97 QT: 322 QTc: 437 Interpretive Statements Sinus tachycardia with frequent premature atrial contractions. Significant baseline artifact ABNORMAL QRS-T ANGLE [QRS-T AXIS DIFFERENCE > 60] Compared to ECG 11/28/2018 14:54:09 PACs now present Electronically Signed On 07-14-2021 17:05:00 CDT by Ammon Weller M.D. [email or web address] [facility] center.[employer]/store/[id number]
[2021-07-14 17:37] LABS: Troponin 5 6HR 11.13 ng/L (0-15)
[2021-07-14 17:44] LABS: Troponin 5 6HR Delta 1.13 ng/L (0-12)
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
--- NOTE | 2021-07-14 18:17 | USCV_ITS ---
Miguel Aguilar Age: 70 Gender: M : 1950 Exam Date: 07/14/2021 18:45 Ordering Phys: Mihir Sanchez MD Technologist: MINGO [place] [facility] [place] Afib BP: / HR: 90 Rhythm: Atrial fibrillation Technical Quality: Adequate MEASUREMENTS (Male / Female) Normal Values 2D ECHO LV Diastolic Diameter PLAX 3.4 cm 4.2 - 5.9 / 3.9 - 5.3 cm LV Systolic Diameter PLAX 1.9 cm IVS Diastolic Thickness 1.3 cm 0.6 - 1.0 / 0.6 - 0.9 cm IVS Systolic Thickness 1.0 cm LVPW Diastolic Thickness 1.2 cm 0.6 - 1.0 / 0.6 - 0.9 cm LVPW Systolic Thickness 1.6 cm LVOT Diameter 2.0 cm LV Ejection Fraction 2D Teich 77.2 % LV Ejection Fraction MOD 2C 53.9 % LV Ejection Fraction 2C AL 56.9 % LA Diameter 2.2 cm LA Width 2.1 cm LA Height 5.8 cm RA Width 2.8 cm RA Height 2.6 cm Aorta at Sinotubular Diameter 2.5 cm M-MODE Aortic Annulus Diameter 2.2 cm LA Ao Ratio MM 1.2 MV E Point Septal Separation 0.4 cm DOPPLER AV Peak Velocity 111.5 cm/s LVOT Peak Velocity 86.0 cm/s AV Area Cont Eq vti 2.3 cm squared AV Area Cont Eq pk 2.3 cm squared MV Peak Velocity 97.0 cm/s MV Area PHT 4.5 cm squared Mitral E to A Ratio 0.9 MV E' Velocity 43.0 cm/s Mitral E to MV E' Ratio 7.4 Mitral E to LV E' Lateral Ratio 7.3 Mitral E to LV E' Septal Ratio 7.7 TR Peak Velocity 93.1 cm/s TR Peak Gradient 3.5 mmHg TR Mean Velocity 57.8 cm/s TR Mean Gradient 1.6 mmHg TR Velocity Time Integral 13.3 cm Right Atrial Pressure 10.0 mmHg Pulmonary Artery Systolic Pressu 13.5 mmHg PV Peak Velocity 120.0 cm/s RV Acceleration Time 0.1 s RV Ejection Time 0.3 s RV AcT/ET 0.5 FINDINGS Left Ventricle Normal left ventricular size. LV systolic function is normal with EF of 55-60%. No regional wall motion abnormalities. Grade 1 diastolic dysfunction Right Ventricle The right ventricle is normal in size and function. Right Atrium The right atrium is normal in size. Left Atrium The left atrium is normal in size. Mitral Valve Structurally normal mitral valve without significant stenosis or prolapse. There is trace mitral regurgitation. Aortic Valve Structurally normal aortic valve without significant sclerosis or stenosis. There is no aortic regurgitation. Tricuspid Valve Structurally normal tricuspid valve without significant stenosis. Trace tricuspid regurgitation. Pulmonary artery systolic pressure is normal. Pulmonic Valve Not well visualized Pericardium Normal pericardium without effusion. Aorta Normal ascending aorta dimension. CONCLUSIONS LV systolic funciton is normal with EF of 55-60% Grade 1 diastolic dysfunction Trace mitral regurgitation Trace tricuspid regurgitation No comparison studies are available Gino Pritchard MD (Electronically Signed) Final Date: 15 July 2021 10:23 S
[2021-07-14] MEDS: HYDROcodone-acetaminophen 5-325 mg Tablet 1 TAB PO (19:34)
[2021-07-14] MEDS: CLONazepam 1 mg Tablet PO (20:41)
[2021-07-15] VITALS (7 sets, daily range): BP systolic 99–107; BP diastolic 49–61; PULSE 78–103; RESP 16–20; TEMP 36.2–36.9; O2SAT 95–97
[2021-07-15] MEDS: HYDROcodone-acetaminophen 5-325 mg Tablet 1 TAB PO ×2 (01:31→06:09)
[2021-07-15 06:31] LABS: Basophils % 0.4 %; Eosinophils % 0.8 %; Hematocrit 34.5 % (42.0-52.0); Hemoglobin 10.5 g/dL (11.7-16.6); Lymphocytes # 0.5 10^3/uL (0.8-4.8); Lymphocytes % 10.6 %; Mean Corpuscular HGB Conc 30.4 g/dL (30.0-36.0); Mean Corpuscular Hemoglobin 27.3 pg (28.0-34.0); Mean Corpuscular Volume 89.6 fl (80-94); Mean Platelet Volume 10.9 fL (7.4-10.4); Monocytes # 0.3 10^3/uL (0.2-0.9); Monocytes % 6.9 %; Neutrophils # 3.87 10^3/uL (1.8-7.7); Neutrophils % 80.5 %; Nucleated Red Blood Cells % 0 %; Platelet Count 109 10^3/cmm (130-400); Red Blood Count 3.85 10^6/uL (4.1-5.3); Red Cell Distribution Width 16.6 % (12.1-15.1); White Blood Count 4.8 10^3/uL (4.0-10.0)
[2021-07-15 06:52] LABS: Alanine Aminotransferase 20 U/L (0-41); Albumin Level 2.3 g/dL (3.5-5.2); Alkaline Phosphatase 189 IU/L (40-130); Anion Gap 13.3 (5-19); Aspartate Amino Transferase 21 U/L (0-40); Blood Urea Nitrogen 13 mg/dL (8-23); Calcium 8.3 mg/dL (8.5-10.5); Carbon Dioxide 20 mmol/L (22-29); Chloride 109 mmol/L (98-107); Creatinine Clr Calc Pharmacy 67.3649; Glucose 89 mg/dL (65-115); Magnesium 2.2 mg/dL (1.7-2.3); Osmolality Calculated 286 mOsm/kg (285-295); Potassium 4.3 mmol/L (3.5-5.1); Sodium 138 mmol/L (136-145); Total Bilirubin 0.2 mg/dL (0.15-1.2); Total Protein 6.3 g/dL (6.6-8.7)
[2021-07-15 07:02] LABS: Thyroid Stimulating Hormone 2.31 uIU/mL (0.27-4.20)
[2021-07-15] MEDS: metoprolol tartrate 25 mg Tablet PO (08:13)
[2021-07-15] MEDS: CLONazepam 1 mg Tablet PO ×2 (08:13→15:30)
[2021-07-15] MEDS: pantoprazole DR 40 mg Tablet PO (08:13)
--- NOTE | 2021-07-15 13:00 | US_ITS ---
WS: [id number] INDICATION: Supraclavicular lymphadenopathy TECHNIQUE: Ultrasound-guided biopsy. FINDINGS: The procedure including risks, benefits, and complications were discussed with the patient who agreed to proceed. Timeout was performed. Using sterile technique patient was prepped and draped in usual sterile fashion. After 1% lidocaine using ultrasound guidance 4 18-gauge cores were obtained of the LEFT supraclavicular lymphadenopathy. Imaging was performed 10 minutes postprocedure to confi rm no significant hematoma. No immediate complications. US/US biopsy lymph node [id number] IMPRESSION: 1. LEFT ultrasound-guided supraclavicular lymph node biopsy. No immediate comp lications. 2. Pathology is pending.
--- NOTE | 2021-07-15 16:31 | P.DS_ITS ---
Discharge Providers Date of Admission: 07/14/21 15:21 Date of Discharge: July 15, 2021 Attending Provider at Admission: Mihir Sanchez Attending Provider at Discharge: Mihir Sanchez Primary Care Provider: Nicholas Bergman MD Diagnoses at Discharge Discharge Diagnosis (1) Lesion of left lung: Status: Acute (2) Lesion of adrenal gland: Status: Acute (3) Anasarca: Status: Acute (4) Gastric varices: Status: Acute (5) Splenomegaly: Status: Acute (6) Paroxysmal atrial fibrillation with RVR: Status: Acute (7) Chronic pain: Status: Acute Reason for Visit Reason for Visit: SOB, dehydrated, vomiting Hospital Course Hospital Course 70-year-old gentleman was observed in the hospital after finding of enlarged lesions concerning for metastatic cancer to multiple sites, with enlarged lesion occupying most of the left upper lobe, possible metastatic sites to left lower and right lower lobes, lymphadenopathy, as well as mass of left adrenal gland, after presenting with exertional dyspnea, also with dehydration, continued weight loss, on presentation also with new diagnosis of atrial fibrillation with RVR, with improvement/conversion to sinus rhythm with metoprolol. Incidentally noted on CT scan splenomegaly, gastrosplenic varices. With progression from prior and with him wanting to seek evaluation and subsequently treatment of possible of the suspected metastatic cancer he underwent left supraclavicular lymph node biopsy which has been sent to pathology, pending. Request is made for PET/CT for him to follow-up if possible this Monday, otherwise next week. He is also asked to follow-up with pulmonology in office. With lower possibility of infection, he is empirically covered with Augmentin. Please refer him once tissue diagnosis is confirmed to oncology. He states is intent to pursue follow up. Currently is not started on any stroke prophylaxis due to biopsy made today. Once biopsy heals, please revisit with him with consideration of stroke prophylaxis with atrial fibrillation. Due to recently worsened pain, and he states no pain medications available, he is given short prescription of [place]. Physical Exam Const: COMMON NORMALS: alert GENERAL APPEARANCE: cooperative ORIENTATION/CONSCIOUSNESS: Yes awake HENMT: COMMON NORMALS: normocephalic, EAC's normal, Normal external nose present and moist oral mucous membranes HEAD & SCALP: normocephalic NOSE: Normal external nose present EXTERNAL AUDITORY CANAL: EAC's normal Neck/C-Spine: COMMON NORMALS: no meningeal signs Chest: CHEST: Yes Symmetrical chest wall rise Resp: COMMON NORMALS: clear to auscultation bilaterally AUSCULTATION: clear to auscultation bilaterally and diminished lung sounds on the left Cardio: COMMON NORMALS: regular rate, regular rhythm and No murmurs present (Cardio) RATE: regular rate RHYTHM: regular rhythm GI: COMMON NORMALS: Normal to inspection, nondistended, normoactive bowel sounds present, Soft to palpation and non-tender PALPATION: Yes Soft to palpation Extremity: COMMON NORMALS: no pedal edema OTHER: Thin. Sarcopenia. Neuro: COMMON NORMALS: moves all extremities SENSORIUM/ORIENTATION: Yes alert MENINGEAL SIGNS: Yes no meningeal signs Psych: COMMON NORMALS: mental status grossly normal Skin: COMMON NORMALS: no wounds RASHES: no rashes Discharge Data Studies Completed and Pending Completed Studies During Hospitalization Category Date Time Status CT angio chest w abd pel w con Stat Cat Scan 07/14/21 12:13 Completed XR chest 1V portable [id number] Stat Exams 07/14/21 11:11 Completed CV. echo complete* [id number] Routine Ultrasound 07/14/21 18:17 Completed US biopsy lymph node [id number] Routine Ultrasound 07/15/21 13:00 Completed Pending at discharge Category Date Time Status Pathology: Surgical [PTH] Routine Pth 07/15/21 14:35 Received Radiology Impressions Chest X-Ray 07/14/21 11:11 Impression: 1. Large left upper lobe density which could represent a large carcinoma of the lung with central air. 2. Hyperinflation. 3. Recommend CT chest. Chest/Abdomen/Pelvis CT 07/14/21 12:13 IMPRESSION: 1. Significant progression of the previously described cavitary lesion in the LEFT upper lobe. The entire LEFT upper lobe is now filled with soft tissue mass and cavitation with abutment along the mediastinum and bronchovascular structures. Partial narrowing and encasement of several of the pulmonary artery branches. 2. Extensive lymphadenopathy including the LEFT sentinel node, bilateral supraclavicular, bilateral mediastinal and hilar lymph nodes. 3. Enlarging soft tissue mass in the LEFT abdomen. I believe this is probably a metastatic lesion in the LEFT adrenal gland. A separate adrenal gland is not evident. 4. No metastatic disease within the liver. 5. Prior cholecystectomy. There is mild central hepatic biliary dilatation which is probably on the basis of the cholecystectomy. No pancreatic head mass identified. 6. Small amount of free fluid in the pelvis with soft tissue anasarca. 7. Mild hyperemia of the small bowel mucosa but no obstruction. 8. Marked splenomegaly with gastrosplenic varices. 9. No pulmonary embolism. 10. Possible early metastatic sites in the LEFT lower lobe and central RIGHT lung. 11. Endovascular graft repair aorta. 1 Lymph Node Biopsy Ultrasound 07/15/21 13:00 IMPRESSION: 1. LEFT ultrasound-guided supraclavicular lymph node biopsy. No immediate complications. 2. Pathology is pending. Laboratory Results WBC 4.8 10^3/uL (4.0-10.0) 07/15/21 05:42 RBC 3.85 10^6/uL (4.1-5.3) L 07/15/21 05:42 Hgb 10.5 g/dL (11.7-16.6) L 07/15/21 05:42 Hct 34.5 % (42.0-52.0) L 07/15/21 05:42 MCV 89.6 fl (80-94) 07/15/21 05:42 MCH 27.3 pg (28.0-34.0) L 07/15/21 05:42 MCHC 30.4 g/dL (30.0-36.0) 07/15/21 05:42 RDW 16.6 % (12.1-15.1) H 07/15/21 05:42 Plt Count 109 10^3/cmm (130-400) L 07/15/21 05:42 MPV 10.9 fL (7.4-10.4) H 07/15/21 05:42 Neut % (Auto) 80.5 % 07/15/21 05:42 Lymph % (Auto) 10.6 % 07/15/21 05:42 [place] % (Auto) 6.9 % 07/15/21 05:42 Eos % (Auto) 0.8 % 07/15/21 05:42 Baso % (Auto) 0.4 % 07/15/21 05:42 Neut # (Auto) 3.87 10^3/uL (1.8-7.7) 07/15/21 05:42 Lymph # (Auto) 0.5 10^3/uL (0.8-4.8) L 07/15/21 05:42 [place] # (Auto) 0.3 10^3/uL (0.2-0.9) 07/15/21 05:42 Eos # (Auto) 0.0 10^3/uL (0.0-0.8) 07/15/21 05:42 Baso # (Auto) 0.0 10^3/uL (0.0-0.1) 07/15/21 05:42 Nucleated RBC % (auto) 0 % 07/15/21 05:42 Nucleated RBCs # 0.0 /100WBC 07/15/21 05:42 Specimen Type Arterial 07/14/21 11:16 Sample Site Radial, right 07/14/21 11:16 ABG pH 7.46 (7.35-7.45) H 07/14/21 11:16 ABG pCO2 32.2 mmHg (35-45) L 07/14/21 11:16 ABG pO2 78.6 mmHg (80.0-100.0) L 07/14/21 11:16 ABG HCO3 23.0 mmol/L (22-26) 07/14/21 11:16 ABG O2 Saturation 97.3 07/14/21 11:16 ABG Base Excess -0.3 mmol/L (-2.0-2.0) 07/14/21 11:16 Shad Test Pos 07/14/21 11:16 A-a O2 Gradient 4.1 mmHg (5-10) L 07/14/21 11:16 Hematocrit 35.2 % (42-52) L 07/14/21 11:16 Hgb O2 Saturation 94.0 % (95-100) L 07/14/21 11:16 Carboxyhemoglobin 2.5 %THgb (0.4-20.1) 07/14/21 11:16 Methemoglobin 0.8 % (0.4-1.5) 07/14/21 11:16 Total Hemoglobin 11.5 g/dL (14-18) L 07/14/21 11:16 Sodium 144.0 mmol/L (131-143) H 07/14/21 11:16 Potassium 3.7 mmol/L (3.5-5.0) 07/14/21 11:16 Glucose 120.0 mg/dL (70-115) H 07/14/21 11:16 Ionized Calcium 1.2 mmol/L (1.1-1.4) 07/14/21 11:16 O2 Delivery Device Room air 07/14/21 11:16 FiO2 21.0 % 07/14/21 11:16 [employer]ent Development Manager ID Amh 07/14/21 11:16 Sodium 138 mmol/L (136-145) 07/15/21 05:42 Potassium 4.3 mmol/L (3.5-5.1) 07/15/21 05:42 Chloride 109 mmol/L (98-107) H 07/15/21 05:42 Carbon Dioxide 20 mmol/L (22-29) L 07/15/21 05:42 Anion Gap 13.3 (5-19) 07/15/21 05:42 BUN 13 mg/dL (8-23) 07/15/21 05:42 Creatinine 0.7 mg/dL (0.7-1.2) 07/15/21 05:42 GFR Calculation Not Reportable 07/15/21 05:42 Glucose 89 mg/dL (65-115) 07/15/21 05:42 Calculated Osmolality 286 mOsm/kg (285-295) 07/15/21 05:42 Calcium 8.3 mg/dL (8.5-10.5) L 07/15/21 05:42 Magnesium 2.2 mg/dL (1.7-2.3) 07/15/21 05:42 Total Bilirubin 0.2 mg/dL (0.15-1.2) 07/15/21 05:42 AST 21 U/L (0-40) 07/15/21 05:42 ALT 20 U/L (0-41) 07/15/21 05:42 Alkaline Phosphatase 189 IU/L (40-130) H 07/15/21 05:42 Troponin T Baseline 10 ng/L (0-15) 07/14/21 11:10 Troponin T 120 Minute 11.50 ng/L (0-15) 07/14/21 13:32 Delta Troponin T 1.50 ABS# (0-10) 07/14/21 13:32 Troponin T Hi Sens 6Hr 11.13 ng/L (0-15) 07/14/21 17:13 Troponin T Hi Sens 6Hr Delta 1.13 ng/L (0-12) 07/14/21 17:13 Total Protein 6.3 g/dL (6.6-8.7) L 07/15/21 05:42 Albumin 2.3 g/dL (3.5-5.2) L 07/15/21 05:42 Globulin 4.0 g/dL (1.3-4.6) 07/15/21 05:42 TSH 2.31 uIU/mL (0.27-4.20) 07/15/21 05:42 Urine Color Yellow (Yellow) 07/14/21 Unknown Urine Appearance Clear (CLEAR) 07/14/21 Unknown Urine pH 5 (5-7) 07/14/21 Unknown Ur Specific [place] 1.007 (1.005-1.030) 07/14/21 Unknown Urine Protein Neg (Negative) 07/14/21 Unknown Urine Glucose (UA) Norm (Normal) 07/14/21 Unknown Urine Ketones Negative (Negative) 07/14/21 Unknown Urine Blood 2+ (Negative) H 07/14/21 Unknown Urine Nitrate Negative (Negative) 07/14/21 Unknown Urine Bilirubin Neg (Negative) 07/14/21 Unknown Urine Urobilinogen Norm mg/dL (Negative) 07/14/21 Unknown Ur Leukocyte Esterase Negative (Negative) 07/14/21 Unknown Urine RBC 0-4 /hpf (0-2) H 07/14/21 Unknown Urine WBC 0-4 /hpf (0-5) H 07/14/21 Unknown Ur Squamous Epith Cells 0-4 /hpf (0-5) H 07/14/21 Unknown Amorphous Sediment Not Reportable 07/14/21 Unknown Urine Bacteria None /hpf (NONE) 07/14/21 Unknown Vitals Last Vital Signs Temp 97.8 F 07/15/21 12:00 Pulse 78 07/15/21 12:00 Resp 16 07/15/21 12:00 BP 105/57 07/15/21 12:00 Pulse Ox 97 07/15/21 12:00 Discharge Plan Discharge Patient Disposition: Home Condition: Stable Prescriptions: New hydrocodone-acetaminophen 5-325 mg Tablet 1 tab PO Q4H PRN (Reason: Moderate Pain) Qty: 10 0RF metoprolol tartrate 25 mg Tablet 25 mg PO BID@0900,2100 Qty: 180 0RF amoxicillin-pot clavulanate 875-125 mg tablet 1 tab PO BID 7 Days Qty: 14 0RF Continued clonazepam [Klonopin] 1 mg tablet 1 mg PO TID Qty: 90 3RF omeprazole 40 mg capsule,delayed release(DR/EC) 40 mg PO DAILY 0RF albuterol sulfate [Ventolin HFA] 90 mcg/actuation HFA aerosol inhaler 1 - 2 puff inhalation Q4H PRN (Reason: Shortness Of Breath) 0RF fluticasone propion-salmeterol [Advair Diskus] 250-50 mcg/dose blister with device 1 ea INHALATION BID 0RF diphenhydramine HCl [Benadryl Allergy] 25 mg Tablet 25 mg PO EVERY OTHER DAY 0RF Discharge Orders: Discharge Order (Routine); Ordered 07/15/21 Ordered By: Mihir Sanchez Referrals: PET, CT [Other] - 07/17/21 Gurdeep Ruelas MD [Physician] - 07/19/21 (Multiple lesions, suspected metastatic cancer) Nicholas Bergman MD [Primary Care Provider] - 4-7 days (Multiple lesions, suspected metastatic cancer) Patient Instructions: Metoprolol (By mouth), A-fib (Atrial Fibrillation) (GEN), Lymph Node Biopsy (GEN), Opioid Safety Activity Restrictions/Additional Instructions: Arrangements are being made for PET/CT scan for review to further assess concern of cancer that has spread to different locations including left adrenal gland and lymph nodes. Attempts are being made to schedule it for this Monday, but if not possible may have to be scheduled for next Monday. Please make sure to follow-up with Dr. Ruelas on Monday. Please follow-up and discuss with your primary doctor regarding concern of met astatic cancer. Discussed also regarding new diagnosis of atrial fibrillation. For now you are not started on any medication for stroke prevention given you had just had a biopsy to avoid bleeding, but discuss stroke prevention strategies with your primary doctor once the biopsy site heals. You are started on metoprolol to help slow down the heart rate. Continue follow-up with your psychiatry doctor and pain clinic. Add protein shakes with meals. Call the hospital if you have any questions about what to do. Discharge Attestations Time Spent in Discharge Care*: greater than 30 min Quality Metrics Clinical Quality Measures [ No reported AMI, CVA or VTE this stay] Coding Level of Care Code Acute Chg FW DC note Diagnoses Lesion of left lung R91.1 Lesion of adrenal gland E27.9 Anasarca R60.1 Gastric varices I86.4 Splenomegaly R16.1 Paroxysmal atrial fibrillation with RVR I48.0 Chronic pain G89.29
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
--- NOTE | 2021-07-16 10:00 | PC.SOCIAL ---
Clarified Dx on Pet Scan order and sent to [place]. Dr Sanchez agreed with diagnosis and signed. Test should be scheduled for tomorrow per [place].
[2021-07-16 15:10] LABS: Lymphoma Profile (BBPL) See Report
[2021-07-21 10:42] LABS: Miscellaneous Test See Scanned Lab Rpt
== END 2021-07-15 17:50 | disposition home or self-care (01) ==
LOC: ER 17:05 → MEDSURG 17:42
PROVIDERS: Admitting Provider Internal Medicine; Emergency Provider Family Medicine; PCP Family Medicine; Visit Provider Internal Medicine
DX: R91.1 Solitary pulmonary nodule (principal); E27.9 Disorder of adrenal gland, unspecified; R60.1 Generalized edema; I86.4 Gastric varices; R16.1 Splenomegaly, not elsewhere classified; I48.0 Paroxysmal atrial fibrillation; G89.29 Other chronic pain; R59.0 Localized enlarged lymph nodes; J98.4 Other disorders of lung; J44.9 Chronic obstructive pulmonary disease, unspecified; Z91.81 History of falling; F32.9 Major depressive disorder, single episode, unspecified; Z87.891 Personal history of nicotine dependence
CPT/HCPCS: 36600; 38505; 71045; 71275; 74177; 76942; 80051; 80053; 81001; 82330; 82805; 83735; 84443; 84484; 85025; 88184; 88185; 88305; 88342; 93005; 93306; 94640; 96374; 96375; 99285; G0378; J2060; J2270; J3490; J7030; Q9967

== ENCOUNTER 2021-07-18 18:30 | Emergency (ER) | payer MEDICARE, MEDICAID, SELFPAY ==
[2021-07-18] VITALS (7 sets, daily range): BP systolic 98–125; BP diastolic 58–72; PULSE 92–103; RESP 18–27; TEMP 36.4; O2SAT 93–97; BMI 16.9
--- NOTE | 2021-07-18 19:17 | ED_ITS ---
HPI - Nausea/Vomiting/Diarrhea General: Chief complaint: Nausea/Vomiting/Diarrhea Stated complaint: Diarhea\Cancer in Lungs\Pain Time Seen by Provider: 07/18/21 18:59 Source: patient Mode of arrival: ambulatory Limitations: no limitations History of Present Illness: 70-year-old male who was recently diagnosed with lung cancer states that he has been having severe diarrhea and feeling dehydrated. He has not started any type of treatment he states he does have pain but his chronic pain is no different than typical. He denies any worsening proving factors denies any fever denies any blood in the stool. Associated symtoms: Denies chest pain, dysuria or headache(s) Review of Systems Const: Denies: fever(s), chills, body aches or change in appetite Eyes: Denies: blurry vision or eye discomfort ENMT: Denies: throat pain or dental pain Card: Denies: chest pain Resp: Denies: dyspnea GI: Reports: diarrhea : Denies: dysuria Musc: Denies: neck pain or back pain Skin/Breast: Denies: rash Neuro: Denies: headache(s) Psych: Denies: depression Jerrell/Lymph: Denies: easy bruising All/Imm: Denies: urticaria PFSH ED PFSH: Medical History Chronic low back pain Encounter for long-term use of opiate analgesic [facility] (current) use of non-steroidal anti-inflammatories (nsaid) Major depressive disorder, recurrent, in full remission Neck Pain Opioid contract exists Post-traumatic stress disorder, chronic Psychiatric care Surgical History H/O skin graft History of hip surgery History of repair of aneurysm of abdominal aorta using endovascular stent graft History of shoulder surgery Family History Other CAD (coronary artery disease) Cancer Lung disease Social History Smoking and tobacco status: former smoker Second hand smoke exposure: No Alcohol intake: never Marital status: History of recent travel: No Physical Exam Const: COMMON NORMALS: no acute distress, patient oriented x3 and healthy appearing HENMT: COMMON NORMALS: normocephalic and atraumatic HEAD & SCALP: normocephalic and atraumatic Eye: COMMON NORMALS: Equal, round and reactive pupils present and EOMs intact bilaterally PUPIL: Yes Equal, round and reactive pupils present Neck/C-Spine: COMMON NORMALS: full ROM and supple Chest: COMMONS NORMALS: normal inspection of the chest and normal palpation of entire chest wall Resp: COMMON NORMALS: normal respiratory effort, No retractions, No use of accessory muscles and clear to auscultation bilaterally AUSCULTATION: clear to auscultation bilaterally Cardio: COMMON NORMALS: regular rate, regular rhythm and No murmurs present (Cardio) RATE: regular rate RHYTHM: regular rhythm GI: COMMON NORMALS: Normal to inspection, nondistended, normoactive bowel sounds present, Soft to palpation, non-tender and no masses PALPATION: Yes Soft to palpation Extremity: COMMON NORMALS: normal to inspection and full ROM Neuro: COMMON NORMALS: patient oriented x3, moves all extremities and no focal motor deficits Psych: COMMON NORMALS: mental status grossly normal, Normal thought process present and cooperative THOUGHT PROCESS: Normal thought process present Skin: COMMON NORMALS: no rashes or lesions noted and no wounds GENERAL SKIN EXAM: no rashes or lesions noted Course Vital Signs: Vital signs: Vital Signs Temperature 97.5 F L 07/18/21 18:49 Pulse Rate 93 07/18/21 20:56 Respiratory Rate 20 H 07/18/21 20:56 Blood Pressure 116/64 07/18/21 20:56 Pulse Oximetry 94 07/18/21 20:56 MDM - Nausea/Vomiting/Diarrhea Medical Decision Making Patient presents here with nausea vomiting diarrhea he feels much improved after IV fluids and L[place]ot[place] blood work here is all normal he is stable for discharge is to follow-up with PCP and return if worsening he understands agrees to plan. Lab Data : 07/18/21 19:55 07/18/21 19:55 Laboratory Results WBC 4.8 10^3/uL (4.0-10.0) 07/18/21 19:55 RBC 3.81 10^6/uL (4.1-5.3) L 07/18/21 19:55 Hgb 10.6 g/dL (11.7-16.6) L 07/18/21 19:55 Hct 33.8 % (42.0-52.0) L 07/18/21 19:55 MCV 88.7 fl (80-94) 07/18/21 19:55 MCH 27.8 pg (28.0-34.0) L 07/18/21 19:55 MCHC 31.4 g/dL (30.0-36.0) 07/18/21 19:55 RDW 17.4 % (12.1-15.1) H 07/18/21 19:55 Plt Count 87 10^3/cmm (130-400) L 07/18/21 19:55 MPV 11.1 fL (7.4-10.4) H 07/18/21 19:55 Neut % (Auto) 79.8 % 07/18/21 19: Lymph % (Auto) 10.0 % 07/18/21 19:55 Mitchell % (Auto) 7.1 % 07/18/21 19:55 Eos % (Auto) 1.7 % 07/18/21 19: Baso % (Auto) 0.6 % 07/18/21 19: Neut # (Auto) 3.83 10^3/uL (1.8-7.7) 07/18/21 19:55 Lymph # (Auto) 0.5 10^3/uL (0.8-4.8) L 07/18/21 19:55 Mitchell # (Auto) 0.3 10^3/uL (0.2-0.9) 07/18/21 19: Eos # (Auto) 0.1 10^3/uL (0.0-0.8) 07/18/21 19: Baso # (Auto) 0.0 10^3/uL (0.0-0.1) 07/18/21 19: Nucleated RBC % (auto) 0 % 07/18/21: Nucleated RBCs # 0.0 /100WBC 07/18/21 19:55 Sodium 138 mmol/L (136-145) 07/18/21 19:55 Potassium 3.8 mmol/L (3.5-5.1) 07/18/21 19:55 Chloride 107 mmol/L (98-107) 07/18/21 19:55 Carbon Dioxide 21 mmol/L (22-29) L 07/18/21 19:55 Anion Gap 13.8 (5-19) 07/18/21 19:55 BUN 14 mg/dL (8-23) 07/18/21 19:55 Creatinine 0.6 mg/dL (0.7-1.2) L 07/18/21 19:55 GFR Calculation Not Reportable 07/18/21 19:55 Glucose 105 mg/dL (65-115) 07/18/21 19:55 Calculated Osmolality 287 mOsm/kg (285-295) 07/18/21 19:55 Calcium 8.6 mg/dL (8.5-10.5) 07/18/21 19:55 Total Bilirubin 0.2 mg/dL (0.15-1.2) 07/18/21 19:55 AST 29 U/L (0-40) 07/18/21 19:55 ALT 29 U/L (0-41) 07/18/21 19:55 Alkaline Phosphatase 216 IU/L (40-130) H 07/18/21 19:55 Total Protein 7.0 g/dL (6.6-8.7) 07/18/21 19:55 Albumin 2.8 g/dL (3.5-5.2) L 07/18/21 19:55 Globulin 4.2 g/dL (1.3-4.6) 07/18/21 19:55 Lipase 17 U/L (13-60) 07/18/21 19:55 Discharge Plan Discharge Patient Disposition: Home Clinical Impression: Diarrhea, Vomiting Condition: Stable Prescriptions: New ondansetron 4 mg tablet,disintegrating 4 mg PO Q6H PRN (Reason: nausea and vomiting) Qty: 14 0RF No Action clonazepam [Klonopin] 1 mg tablet 1 mg PO TID Qty: 90 3RF omeprazole 40 mg capsule,delayed release(DR/EC) 40 mg PO DAILY 0RF albuterol sulfate [Ventolin HFA] 90 mcg/actuation HFA aerosol inhaler 1 - 2 puff inhalation Q4H PRN (Reason: Shortness Of Breath) 0RF fluticasone propion-salmeterol [Advair Diskus] 250-50 mcg/dose blister with device 1 ea INHALATION BID 0RF diphenhydramine HCl [Benadryl Allergy] 25 mg Tablet 25 mg PO EVERY OTHER DAY 0RF hydrocodone-acetaminophen 5-325 mg Tablet 1 tab PO Q4H PRN (Reason: Moderate Pain) Qty: 10 0RF metoprolol tartrate 25 mg Tablet 25 mg PO BID@0900,2100 Qty: 180 0RF amoxicillin-pot clavulanate 875-125 mg tablet 1 tab PO BID 7 Days Qty: 14 0RF Discharge Orders: Discharge ED (Routine); Ordered 07/18/21 Ordered By: Parvin Hannah Referrals: Nicholas Bergman MD [Primary Care Provider] - 1-3 days Discharge Diet: Advance as tolerated Discharge Activity: Resume usual activity Patient Instructions: Acute Nausea and Vomiting (ED), Acute Diarrhea (ED) Coding Level of Care Code ED Data Communications Technician for Maria Luz Fwtereza Exam Comprehensive
[2021-07-18] MEDS: sodium chloride 0.9% 1,000 ML 999 ML IV (19:55)
[2021-07-18] MEDS: ondansetron 2 mg/ML SDV 2 mL 4 MG IVP (19:55)
[2021-07-18] MEDS: diphenoxylate/atropine Tablet 1 TAB PO (19:56)
[2021-07-18] MEDS: HYDROmorphone 1 mg/mL INJ 1 mL IVP (19:57)
[2021-07-18 20:13] LABS: Basophils % 0.6 %; Eosinophils # 0.1 10^3/uL (0.0-0.8); Eosinophils % 1.7 %; Hematocrit 33.8 % (42.0-52.0); Hemoglobin 10.6 g/dL (11.7-16.6); Lymphocytes # 0.5 10^3/uL (0.8-4.8); Mean Corpuscular HGB Conc 31.4 g/dL (30.0-36.0); Mean Corpuscular Hemoglobin 27.8 pg (28.0-34.0); Mean Corpuscular Volume 88.7 fl (80-94); Mean Platelet Volume 11.1 fL (7.4-10.4); Monocytes # 0.3 10^3/uL (0.2-0.9); Monocytes % 7.1 %; Neutrophils # 3.83 10^3/uL (1.8-7.7); Neutrophils % 79.8 %; Nucleated Red Blood Cells % 0 %; Platelet Count 87 10^3/cmm (130-400); Red Blood Count 3.81 10^6/uL (4.1-5.3); Red Cell Distribution Width 17.4 % (12.1-15.1); White Blood Count 4.8 10^3/uL (4.0-10.0)
[2021-07-18 20:35] LABS: Alanine Aminotransferase 29 U/L (0-41); Albumin Level 2.8 g/dL (3.5-5.2); Alkaline Phosphatase 216 IU/L (40-130); Anion Gap 13.8 (5-19); Aspartate Amino Transferase 29 U/L (0-40); Blood Urea Nitrogen 14 mg/dL (8-23); Calcium 8.6 mg/dL (8.5-10.5); Carbon Dioxide 21 mmol/L (22-29); Chloride 107 mmol/L (98-107); Globulin 4.2 g/dL (1.3-4.6); Glucose 105 mg/dL (65-115); Lipase 17 U/L (13-60); Osmolality Calculated 287 mOsm/kg (285-295); Potassium 3.8 mmol/L (3.5-5.1); Sodium 138 mmol/L (136-145); Total Bilirubin 0.2 mg/dL (0.15-1.2)
== END 2021-07-18 21:30 | disposition home or self-care (01) ==
PROVIDERS: Emergency Provider Emergency Medicine; PCP Family Medicine
DX: R11.10 Vomiting, unspecified (principal); R19.7 Diarrhea, unspecified
CPT/HCPCS: 80053; 83690; 85025; 96361; 96374; 96375; 99284; J1170; J2405; J7030

== ENCOUNTER → 2021-07-19 09:32 | Outpatient (BNVA) | payer MEDICARE, MEDICAID, SELFPAY | PROVIDERS: PCP Family Medicine; Visit Provider Internal Medicine Pulmonary Disease | DX: C34.90 Malignant neoplasm of unspecified part of unspecified bronchus or lung (principal); J44.9 Chronic obstructive pulmonary disease, unspecified; J98.4 Other disorders of lung; R19.7 Diarrhea, unspecified; G89.3 Neoplasm related pain (acute) (chronic); F17.210 Nicotine dependence, cigarettes, uncomplicated | CPT/HCPCS: 99204 ==

== ENCOUNTER → 2021-08-04 08:49 | Outpatient (BNVA) | payer MEDICARE, MEDICAID, SELFPAY | PROVIDERS: PCP Family Medicine; Referring Provider Internal Medicine Hematology & Oncology; Visit Provider Surgery | DX: C34.90 Malignant neoplasm of unspecified part of unspecified bronchus or lung (principal); C79.70 Secondary malignant neoplasm of unspecified adrenal gland | CPT/HCPCS: 99203 ==

== ENCOUNTER 2021-08-11 08:09 | Oncology outpatient (recurring) (ONCR) | payer MEDICARE, MEDICAID, SELFPAY ==
[2021-08-11 08:36] LABS: Basophils % 0.9 %; Eosinophils # 0.1 10^3/uL (0.0-0.8); Eosinophils % 1.1 %; Hematocrit 40.8 % (42.0-52.0); Lymphocytes # 0.5 10^3/uL (0.8-4.8); Lymphocytes % 10.9 %; Mean Corpuscular HGB Conc 29.4 g/dL (30.0-36.0); Mean Corpuscular Hemoglobin 27.3 pg (28.0-34.0); Mean Corpuscular Volume 92.7 fl (80-94); Monocytes # 0.4 10^3/uL (0.2-0.9); Monocytes % 8.1 %; Neutrophils # 3.47 10^3/uL (1.8-7.7); Neutrophils % 78.5 %; Nucleated Red Blood Cells % 0 %; Platelet Count 90 10^3/cmm (130-400); Red Cell Distribution Width 18.1 % (12.1-15.1); White Blood Count 4.4 10^3/uL (4.0-10.0)
[2021-08-11 09:02] LABS: Alanine Aminotransferase 23 U/L (0-41); Albumin Level 3.4 g/dL (3.5-5.2); Alkaline Phosphatase 409 IU/L (40-130); Anion Gap 15.2 (5-19); Aspartate Amino Transferase 22 U/L (0-40); Blood Urea Nitrogen 13 mg/dL (8-23); Calcium 8.6 mg/dL (8.5-10.5); Carbon Dioxide 22 mmol/L (22-29); Chloride 107 mmol/L (98-107); Globulin 4.3 g/dL (1.3-4.6); Glucose 109 mg/dL (65-115); Osmolality Calculated 291 mOsm/kg (285-295); Potassium 4.2 mmol/L (3.5-5.1); Sodium 140 mmol/L (136-145); Total Bilirubin 0.3 mg/dL (0.15-1.2); Total Protein 7.7 g/dL (6.6-8.7)
== END 2021-08-17 23:59 | disposition home or self-care (01) ==
PROVIDERS: PCP Family Medicine; Visit Provider Internal Medicine Hematology & Oncology
DX: D69.6 Thrombocytopenia, unspecified (principal); D72.819 Decreased white blood cell count, unspecified; J44.9 Chronic obstructive pulmonary disease, unspecified; R16.1 Splenomegaly, not elsewhere classified; I86.4 Gastric varices; C34.92 Malignant neoplasm of unspecified part of left bronchus or lung; F17.210 Nicotine dependence, cigarettes, uncomplicated
CPT/HCPCS: 36415; 80053; 85025; 99214; 99215; 99999; J2704; J3010

== ENCOUNTER 2021-08-17 09:52 | Day surgery (SDC) | payer MEDICARE, MEDICAID, SELFPAY ==
[2021-08-13 14:47] VITALS: BMI 18.6
[2021-08-17] VITALS (8 sets, daily range): BP systolic 111–130; BP diastolic 56–77; PULSE 77–88; RESP 17–18; TEMP 36.6–36.9; O2SAT 96–100
--- NOTE | 2021-08-17 | SCC_ITS ---
Procedure done: 1. Placement of PowerPort catheter via right internal jugular vein 2. Fluoroscopic guidance and interpretation for placement of catheter 3. Ultrasound guidance to access the right internal jugular vein 13.2 seconds of fluoroscopic guidance, for a cumulative dose of 1.37 mGy, was provided to Dr. Quiroga by the radiology department. C-arm images of the chest were saved for the patient's permanent record. [facility]
--- NOTE | 2021-08-17 10:22 | SC_ITS ---
WS: [id number] C-arm fluoroscopy for Port-A-Cath placement, 08/17/2021 Clinical Data: Powerport Placement Comparison: None. Findings: The right Port-A-Cath has been inserted and enters the right internal jugular vein and ends in the robison perior vena cava. SC/C-arm FL for CVA [id number] Impression: Insertion of right Port-A-Cath.
[2021-08-17] MEDS: sodium chloride 0.9% 1,000 ML 30 ML IV (11:00)
--- NOTE | 2021-08-17 11:42 | W.PM.OPSUD ---
Surgery/Procedure H&P Update DATE OF PROCEDURE: August 17, 2021 DATE H&P PERFORMED: 08/04/21 H&P UPDATE INFORMATION: I have reviewed H&P completed within last 30 days, I have examined patient prior to procedure and No changes to prior documentation PREOP DIAGNOSIS: Metastatic lung cancer PRIMARY INDICATION FOR PROCEDURE: The same PLANNED PROCEDURE: Operation Date: 08/17/21 11:50 Proposed Procedures p Portacath Placement 16769/C34.90(Not Applicable) - Tyson Quiroga MD
[2021-08-17] MEDS: lidocaine 2% INJ 20 mL INJECTION (12:49)
[2021-08-17] MEDS: heparin, porcine 1,000 unit/mL INJ 10 mL 10000 UNIT IRRIGATION (12:50)
--- NOTE | 2021-08-17 13:07 | P.OP_ITS ---
Operative Report Date of procedure: August 17, 2021 Pre-op diagnosis: Preop Diagnosis Metastatic lung cancer Post-op diagnosis: same Post-op findings: Unable to access right subclavian vein. Procedure done: 1. Placement of PowerPort catheter via right internal jugular vein 2. Fluoroscopic guidance and interpretation for placement of catheter 3. Ultrasound guidance to access the right internal jugular vein Implants: Right upper chest PowerPort Surgeon: Tyson Quiroga MD Criminal Intelligence Specialist: Geremias Jang Anesthesia: MAC (Dr. Douglas and LORENA Guallpa) Procedure: Patient was identified in the holding area and taken to the operative room and placed in supine position IV propofol was given by the anesthesia provider ,both arms were tucked,Time-out was done verifying the patient's name/date of /planned procedure and destination after the procedure, all were in agreement. SCDs confirmed to be functioning, preoperative antibiotics administered per protocol, and beta claude protocol was confirmed, appropriate positioning of the patient was done by me. Medications were reviewed to assess for anticoagulant usage. Risks and benefits and prevention of central line associated blood stream infection (CLABSI) were discussed with the patient/CPOA, and a consent was obtained. Monitors were in place and monitored throughout the procedure. All necessary supplies were available prior to start. Hand hygiene was completed prior to starting. Maximum barrier technique was utilized including a sterile gown, sterile gloves with a hat and mask. Site was was prepped with [chlorhexidine] and a full body drape was placed. 5 mL of 2% lidocaine was injected into the skin with a 25 gauge needle. Prep& drape was done under the usual sterile technique, lidocaine 2% was injected at the site of the stick, started by accessing the right subclavian vein yet got arterial flow and after couple of sticks I decided to abort and hold pressure for few minutes. Then my attention was deviated towards the right side of the neck. Right Internal Juglar vein stick that retrieved venous blood was obtained from the first stick under ultrasound guidance and there was no evidence of intraluminal thrombosis, interpretation was done by me through the whole entire procedure, a guidewire was then threaded and under the guidance of fluoroscopy position was confirmed to be in the IVC and my interpretation, there was no PVC changes, at that point the guidewire was secured to the drapes with a hemostat and the needle was taken out. Attention was then deviated towards creation of a pocket for the port were lidocaine 2% was injected using an 15 blade knife skin incision was created at the right upper Chest ,dissection using the Bovie to create a pocket for the Port-A-Cath to be accommodated, hemostasis was secured, after the port being ramin ropriately flushed it was inserted into the pocket and a tunneler was used to accommodate the catheter of the port cath to be delivered through the incision first created at the site of the stick, and then I was able to retrieve the catheter at the index site of the stick. At that point under fluoroscopy an estimated length was measured for the catheter and was cut at the designed level, followed by that a dilator with the sheath introduced onto the guidewire the dilator and the wire were retrieved and the catheter of the port was introduced via the sheath where it was peeled off and the catheter maintained to be in the SVC that was confirmed with fluoroscopy, and the fluoroscopy interpretation was done by me throughout the entire procedure. Multiple flushes of the port was done by diluted heparin and I was able to retrieve without difficulty venous blood as well as appropriate flushing was achieved. The port was kept in its pocket,3-0 Vicryl deep subdermal interrupted sutures, skin was then closed by 4-0 Monocryl as subcuticular closure. The port was appropriately flushed with heparin and venous blood was withdrawn without difficulty The stick site was closed by 4-0 Monocryl and Dermabond was used followed by dressing. Patient tolerated the procedure well was taken to the recovery area Count was correct at the end of the procedure I was present for the whole entire procedure
--- NOTE | 2021-08-17 13:10 | XR_ITS ---
WS: [id number] Portable AP upright chest, 08/17/2021 Clinical Data: Status post right internal jugular vein PowerPort placement Comparison: Portable chest, 07/14/2021. Findings: The left upper lobe mass with a central air collection remains the same. A right Port-A-Cat h has been inserted and ends in the superior vena cava. The diaphragms are flattened. The heart is no rmal. XR/XR chest 1V portable [id number] Impression: 1. No change in left upper lobe mass with central air collection. 2. Satisfactory insertion of right Port-A-Cath.
--- NOTE | 2021-08-17 13:56 | ANE.PACU2 ---
Inpatient post-anesthesia follow up: Airway intact: Yes Vital signs: Temperature 97.8 F Pulse Rate 82 Respiratory Rate 18 Blood Pressure 111/74 Pulse Oximetry 97 Oxygen Delivery Me thod Room Air Oxygen Flow Rate 2 Fraction of Inspir ed Oxygen Hydration adequate: Yes Nausea and vomiting: No Pain level: 2 Mental status: Baseline
--- NOTE | 2021-08-17 14:12 | PC.NURSE ---
oncology notified of patient receiving his port placed.
== END 2021-08-17 14:12 | disposition home or self-care (01) ==
PROVIDERS: PCP Family Medicine; Visit Provider Surgery
PROC: (CPT 36561; principal; 2021-08-17 11:40)
DX: C34.90 Malignant neoplasm of unspecified part of unspecified bronchus or lung (principal); Z87.891 Personal history of nicotine dependence
CPT/HCPCS: 36561; 71045; 77001; C1788; J1644; J7030

== ENCOUNTER 2021-08-19 13:08 | Oncology outpatient (recurring) (ONCR) | payer MEDICARE, MEDICAID, SELFPAY | END 2021-08-19 23:59 | disposition home or self-care (01) | PROVIDERS: PCP Family Medicine; Visit Provider Internal Medicine Hematology & Oncology | DX: Z53.9 Procedure and treatment not carried out, unspecified reason (principal) ==

== ENCOUNTER 2021-08-28 21:06 | Emergency (ER) | payer MEDICARE, MEDICAID, SELFPAY ==
[2021-08-28 21:15] VITALS: BP 124/66; PULSE 94; RESP 30; TEMP 36.3; O2SAT 94; BMI 17.1
--- NOTE | 2021-08-28 21:28 | XRR_ITS ---
PROCEDURE INFORMATION: Exam: XR Chest Exam date and time: 08/28/2021 9:36 PM Age: 70 years old Clinical indication: Other: Port infection; Prior surgery; Surgery date: <1 month; Patient HX: Patient believes his chest port is infected. History of stage iv lung cancer. TECHNIQUE: Imaging protocol: XR of the chest. Views: 1 view. COMPARISON: CR XR chest 1V portable [id number] 08/17/2021 1:18 PM FINDINGS: Tubes, catheters and devices: MediPort catheter is placed via the right internal jugular vein with its tip at the level of the superior vena cava. Lungs: Left upper lobe cavitary mass is again seen similar to that present on 08/17/2021. Pleural spaces: Unremarkable. No pleural effusion. No pneumothorax. Heart/Mediastinum: Unremarkable. No cardiomegaly. Bones/joints: Unremarkable. XR/XR chest 1V portable [id number] IMPRESSION: 1. Stable placement of a MediPort catheter via the right internal jugular vein. 2. Little change in the cavitary mass in the left upper hemithorax.
--- NOTE | 2021-08-28 21:30 | ED_ITS ---
HPI - General Adult General: Chief complaint: General Medical Stated complaint: possible infection in port Time Seen by Provider: 08/28/21 21:23 Source: patient Mode of arrival: ambulatory Limitations: no limitations History of Present Illness: 70-year-old male that states that he had a port placed recently and is right chest and is concerned about infection. States he is also been extremely anxious he has taken Klonopin for years and states that he ran out 5 days ago. He states he feels like he is extremely anxious due to being out of his Klonopin. Denies any fever denies any pain has no other complaints at this time. Associated symptoms: Deny chest pain, dyspnea, headache(s), nausea, rash or vomiting Review of Systems Const: Denies: fever(s), chills, body aches or change in appetite Eyes: Denies: blurry vision or eye discomfort ENMT: Denies: throat pain or dental pain Card: Denies: chest pain Resp: Denies: dyspnea GI: Denies: abdominal pain, nausea, vomiting or diarrhea : Denies: dysuria Musc: Denies: neck pain or back pain Skin/Breast: Denies: rash Neuro: Denies: headache(s) Psych: Reports: anxiety Jerrell/Lymph: Denies: easy bruising All/Imm: Denies: urticaria PFSH ED PFSH: Medical History Cancer of left lung Chronic low back pain Encounter for long-term use of opiate analgesic skilled nursing (current) use of non-steroidal anti-inflammatories (nsaid) Major depressive disorder, recurrent, in full remission Neck Pain Opioid contract exists Post-traumatic stress disorder, chronic Psychiatric care Surgical History H/O skin graft History of hip surgery History of repair of aneurysm of abdominal aorta using endovascular stent graft History of shoulder surgery Family History Other CAD (coronary artery disease) Cancer Lung disease Social History Smoking and tobacco status: current some day smoker cigarettes Packs smoked per day: 1 Years cigarettes smoked: 40 [ Other cigarette details: less than 1ppd currently] Second hand smoke exposure: No Alcohol intake: never Marital status: History of recent travel: No Physical Exam Const: COMMON NORMALS: no acute distress, patient oriented x3 and healthy appearing GENERAL APPEARANCE: anxious HENMT: COMMON NORMALS: normocephalic and atraumatic HEAD & SCALP: normocephalic and atraumatic Eye: COMMON NORMALS: Equal, round and reactive pupils present and EOMs intact bilaterally PUPIL: Yes Equal, round and reactive pupils present Neck/C-Spine: COMMON NORMALS: full ROM and supple Chest: COMMONS NORMALS: normal inspection of the chest and normal palpation of entire chest wall OTHER: Port is well-appearing at the right chest no signs of infections clean dry and intact Resp: COMMON NORMALS: normal respiratory effort, No retractions, No use of accessory muscles and clear to auscultation bilaterally AUSCULTATION: clear to auscultation bilaterally Cardio: COMMON NORMALS: regular rate, regular rhythm and No murmurs present (Cardio) RATE: regular rate RHYTHM: regular rhythm GI: COMMON NORMALS: Normal to inspection, nondistended, normoactive bowel sounds present, Soft to palpation, non-tender and no masses PALPATION: Yes Soft to palpation Extremity: COMMON NORMALS: normal to inspection and full ROM Neuro: COMMON NORMALS: patient oriented x3, moves all extremities and no focal motor deficits Psych: COMMON NORMALS: mental status grossly normal, Normal thought process present and cooperative THOUGHT PROCESS: Normal thought process present Skin: COMMON NORMALS: no rashes or lesions noted and no wounds GENERAL SKIN EXAM: no rashes or lesions noted Course Vital Signs: Vital signs: Vital Signs Temperature 97.3 F L 08/28/21 21:15 Pulse Rate 94 08/28/21 21:15 Respiratory Rate 30 H 08/28/21 21:15 Blood Pressure 124/66 08/28/21 21:15 Pulse Oximetry 94 08/28/21 21:15 [facility] - General Adult Medical Decision Making Patient presents here with an anxiety attack we will give him 3 Klonopin and then prescribed Klonopin for home. His port is well-appearing. Discharge Plan Discharge Patient Disposition: Home Clinical Impression: Non-small cell lung cancer, Anxiety Condition: Stable Prescriptions: Continued Klonopin 1 mg tablet 1 mg PO TID Qty: 90 3RF No Action morphine 30 mg tablet extended release 60 mg PO Q12H 30 Days Qty: 120 0RF Trelegy Ellipta 100-62.5-25 mcg blister with device 1 inh inhalation DAILY Qty: 60 3RF oxycodone-acetaminophen [Percocet] 5-325 mg tablet 1 - 2 tab PO .q4-6h PRN (Reason: pain) 30 Days Qty: 60 0RF diphenoxylate-atropine [Lomotil] 2.5-0.025 mg tablet 1 tab PO BID PRN (Reason: diarrhea) Qty: 14 1RF omeprazole 40 mg capsule,delayed release(DR/EC) 40 mg PO DAILY 0RF albuterol sulfate [Ventolin HFA] 90 mcg/actuation HFA aerosol inhaler 1 - 2 puff inhalation Q4H PRN (Reason: Shortness Of Breath) 0RF diphenhydramine HCl [Benadryl Allergy] 25 mg Tablet 25 mg PO EVERY OTHER DAY 0RF metoprolol tartrate 25 mg Tablet 25 mg PO BID@0900,2100 Qty: 180 0RF Discharge Orders: Discharge ED (Routine); Ordered 08/28/21 Ordered By: Parvin Hannah Referrals: Nicholas Bergman MD [Primary Care Provider] - Discharge Diet: Advance as tolerated Discharge Activity: Resume usual activity Patient Instructions: Anxiety (ED) Coding Level of Care Code ED Microsoft Net Developer for Chg Fwd Exam Comprehensive
[2021-08-28] MEDS: CLONazepam 1 mg Tablet PO (21:33)
[2021-08-28 21:50] VITALS: BP 130/64; PULSE 89; RESP 16; O2SAT 93
[2021-08-28] MEDS: CLONazepam 1 mg Tablet 3 MG PO (21:55)
[2021-08-28 22:03] VITALS: BP 130/64; PULSE 89; RESP 16; O2SAT 93
== END 2021-08-28 22:00 | disposition home or self-care (01) ==
PROVIDERS: Emergency Provider Emergency Medicine; PCP Family Medicine
DX: F41.9 Anxiety disorder, unspecified (principal); C34.92 Malignant neoplasm of unspecified part of left bronchus or lung; Z95.828 Presence of other vascular implants and grafts
CPT/HCPCS: 71045; 99283

== ENCOUNTER → 2021-09-07 07:49 | Outpatient (BNVA) | payer MEDICARE, MEDICAID, SELFPAY | PROVIDERS: PCP Family Medicine; Visit Provider Nurse Practitioner Family | DX: Z51.0 Encounter for antineoplastic radiation therapy (principal); C34.02 Malignant neoplasm of left main bronchus; D69.6 Thrombocytopenia, unspecified; D72.819 Decreased white blood cell count, unspecified; R16.1 Splenomegaly, not elsewhere classified; J44.9 Chronic obstructive pulmonary disease, unspecified; I86.4 Gastric varices; Z79.899 Other long term (current) drug therapy | CPT/HCPCS: 77386; 99214; 99215 ==

== ENCOUNTER 2021-09-14 08:00 | Oncology outpatient (recurring) (ONCR) | payer MEDICARE, MEDICAID, SELFPAY ==
--- NOTE | 2021-08-23 10:15 | MR_ITS ---
WS: [id number] MRI BRAIN WITH AND WITHOUT CONTRAST HISTORY: cancer staging COMPARISON: PET CT 07/24/[address] 10/05/2020 TECHNIQUE: Multiplanar imaging performed through the brain with MultiHance 13 ml's IV. No acute infarcts are seen. Nath-white matter differentiation is well preserved. Moderate T2 and FLAI R signal hyperintensities in the periventricular and subcortical white matter, bilateral and relative ly symmetric. No mass effect. No midline shift. No susceptibility artifacts or prior lacunar infarcts. Ventricles and extra-axial spaces are normal. Clivus and pituitary gland are normal. Visualized posterior fossa and brainstem are also normal. Postcontrast images are negative for masses or vascular malformations. Absent or hypoplastic distal R IGHT vertebral artery. Dural venous sinuses are normal. Paranasal sinuses: Well aerated with no significant disease. Mastoid air cells: Normal. Calvarium and scalp: Normal. MR/MR head wo/w con [id number] IMPRESSION: 1. No acute infarct or hemorrhage. 2. No evidence for metastatic disease or enhancing mass within the brain. 3. Moderate bilateral small vessel ischemic disease.
[2021-08-23] MEDS: gadobenate dimeglumine 20 mL vial IV (10:52)
--- NOTE | 2021-08-26 | CT_ITS ---
Radiation Therapy Planning CT images; total exam DLP: 380.03 mGy-cm MTDD
[2021-09-07 09:25] LABS: Alanine Aminotransferase 19 U/L (0-41); Albumin Level 3.2 g/dL (3.5-5.2); Alkaline Phosphatase 333 IU/L (40-130); Anion Gap 11.7 (5-19); Aspartate Amino Transferase 27 U/L (0-40); Blood Urea Nitrogen 9 mg/dL (8-23); Calcium 8.6 mg/dL (8.5-10.5); Carbon Dioxide 27 mmol/L (22-29); Chloride 104 mmol/L (98-107); Creatinine Clr Calc Pharmacy 72.0233; Glucose 113 mg/dL (65-115); Osmolality Calculated 287 mOsm/kg (285-295); Potassium 3.7 mmol/L (3.5-5.1); Sodium 139 mmol/L (136-145); Total Bilirubin 0.5 mg/dL (0.15-1.2); Total Protein 7.2 g/dL (6.6-8.7)
[2021-09-07 09:35] LABS: Basophils % 0.8 %; Eosinophils # 0.1 10^3/uL (0.0-0.8); Hematocrit 37.9 % (42.0-52.0); Lymphocytes # 0.6 10^3/uL (0.8-4.8); Lymphocytes % 12.1 %; Mean Corpuscular HGB Conc 31.7 g/dL (30.0-36.0); Mean Corpuscular Hemoglobin 27.5 pg (28.0-34.0); Mean Corpuscular Volume 86.9 fl (80-94); Mean Platelet Volume 12.9 fL (7.4-10.4); Monocytes # 0.5 10^3/uL (0.2-0.9); Monocytes % 10.3 %; Neutrophils # 3.61 10^3/uL (1.8-7.7); Neutrophils % 75.6 %; Nucleated Red Blood Cells % 0 %; Platelet Count 79 10^3/cmm (130-400); Red Blood Count 4.36 10^6/uL (4.1-5.3); White Blood Count 4.8 10^3/uL (4.0-10.0)
--- NOTE | 2021-09-07 09:56 | PC.NURSE ---
informed Bruna Quarles of patient lab results, creatinine 0.7 today. instructed to continue with current calculated dose ordered.
[2021-09-07] MEDS: acetaminophen 325 mg Tablet 650 MG PO (10:04)
[2021-09-07] MEDS: sodium chloride 0.9% 250 ML 100 ML IV (10:05)
[2021-09-07] MEDS: palonosetron 0.25 mg/5 mL SDV IVP (10:06)
[2021-09-07] MEDS: famotidine 20 mg/2 mL INJ IVP (10:08)
[2021-09-07] MEDS: diphenhydrAMINE 50 mg/mL SDV 1mL 25 MG IVP (10:09)
[2021-09-07] MEDS: dexamethasone 20 MG in sodium chloride 0.9% 50 ML 188 MG IV (10:10)
[2021-09-07] MEDS: CARBOplatin 240 MG in sodium chloride 0.9% 500 ML 524 MG IV (12:05)
[2021-09-07 13:07] VITALS: BP 127/64; PULSE 73; RESP 16; TEMP 36.6; O2SAT 96
[2021-09-14 08:43] LABS: Basophils # 0.1 10^3/uL (0.0-0.1); Basophils % 0.7 %; Eosinophils % 0.3 %; Hematocrit 39.2 % (42.0-52.0); Hemoglobin 12.7 g/dL (11.7-16.6); Lymphocytes # 0.4 10^3/uL (0.8-4.8); Lymphocytes % 5.5 %; Mean Corpuscular HGB Conc 32.4 g/dL (30.0-36.0); Mean Corpuscular Hemoglobin 27.1 pg (28.0-34.0); Mean Corpuscular Volume 83.8 fl (80-94); Monocytes # 0.4 10^3/uL (0.2-0.9); Monocytes % 5.2 %; Neutrophils % 86.6 %; Nucleated Red Blood Cells % 0 %; Platelet Count 98 10^3/cmm (130-400); Red Blood Count 4.68 10^6/uL (4.1-5.3); Red Cell Distribution Width 15.3 % (12.1-15.1); White Blood Count 7.2 10^3/uL (4.0-10.0)
[2021-09-14 08:56] LABS: Alanine Aminotransferase 16 U/L (0-41); Albumin Level 3.5 g/dL (3.5-5.2); Alkaline Phosphatase 246 IU/L (40-130); Anion Gap 15.2 (5-19); Aspartate Amino Transferase 17 U/L (0-40); Blood Urea Nitrogen 17 mg/dL (8-23); Calcium 8.8 mg/dL (8.5-10.5); Carbon Dioxide 24 mmol/L (22-29); Chloride 103 mmol/L (98-107); Globulin 3.6 g/dL (1.3-4.6); Glucose 117 mg/dL (65-115); Osmolality Calculated 289 mOsm/kg (285-295); Potassium 4.2 mmol/L (3.5-5.1); Sodium 138 mmol/L (136-145); Total Bilirubin 0.7 mg/dL (0.15-1.2); Total Protein 7.1 g/dL (6.6-8.7)
== END 2021-09-16 23:59 | disposition home or self-care (01) ==
PROVIDERS: Nurse Practitioner Family; PCP Family Medicine; Visit Provider Radiology Radiation Oncology
DX: C34.92 Malignant neoplasm of unspecified part of left bronchus or lung (principal)
CPT/HCPCS: 36591; 70553; 77014; 77300; 77301; 77334; 77338; 77386; 77470; 80053; 85025; 96367; 96375; 96413; 96417; 99214; 99215; J1100; J1200; J2469; J3490; J7030; J7040; J7050; J9045; J9267; Q9967

== ENCOUNTER 2021-09-14 08:50 | Inpatient (IN) | payer MEDICARE, MEDICAID, SELFPAY ==
[2021-09-14] VITALS (69 sets, daily range): BP systolic 84–135; BP diastolic 44–72; PULSE 63–158; RESP 8–39; TEMP 36.6; O2SAT 87–100; BMI 16.8
--- NOTE | 2021-09-14 08:54 | ECG_ITS ---
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 Measurements Intervals [place] Rate: 158 P: CO: QRS: 66 QRSD: 73 T: 97 QT: 252 QTc: 409 Interpretive Statements ATRIAL FLUTTER/TACHYCARDIA WITH RAPID VENTRICULAR RESPONSE MARKED ST DEPRESSION, CONSIDER SUBENDOCARDIAL INJURY [0.2+ mV ST DEPRESSION] ACUTE ID Compared to ECG 07/14/2021 14:53:48 ST (T wave) deviation now present Sinus rhythm no longer present T-wave abnormality no longer present Electronically Signed On 09-14-2021 20:05:41 CDT by Radha Barclay M.D. [email or web address]
--- NOTE | 2021-09-14 08:54 | XR_ITS ---
WS: [id number] XR chest 1V portable [id number] REASON FOR EXAM: sob FINDINGS: Infusion port over the right chest with transvenous right jugular vein catheter with the tip in the s uperior vena cava. Extensive cystic and bullous change in the right upper lung. Decreased volume in the left lung with upward retraction of the left hilum. Complex airspace and opac ification in the left lung apex and increased opacity of adjacent lung parenchyma inferiorly. The chest does not appear to change significantly compared to 08/28/2021. XR/XR chest 1V portable [id number] IMPRESSION: Relatively stable abnormal chest. It would however be difficult to identify act jamal tumor or inflammatory disease in the left upper lung and apex region
[2021-09-14 09:10] LABS: ABG PCO2 32.6 mmHg (35-45); ABG PH Result 7.45 (7.35-7.45); Alveolar-Arterial Oxygen Gradi 11.1 mmHg (5-10); Arterial Blood Gas Hematocrit 39.8 % (42-52); Base Excess ABG -0.8 mmol/L (-2.0-2.0); Blood Gas Operator Identificat AMH; Blood Gas Sample Site Brachial, right; Blood Gas Sample Type Arterial; HCO3 ABG 22.6 mmol/L (22-26); HGB O2 Sat 96.8 % (95-100); Ionized Calcium Level - ABG 1.2 mmol/L (1.1-1.4); Methemoglobin 0.9 % (0.4-1.5); Oxygen Device NC; Oxygen Saturation ABG 98.6
[2021-09-14 09:11] LABS: Basophils # 0.1 10^3/uL (0.0-0.1); Basophils % 0.8 %; Eosinophils % 0.4 %; Hematocrit 38.4 % (42.0-52.0); Hemoglobin 12.7 g/dL (11.7-16.6); Lymphocytes # 0.4 10^3/uL (0.8-4.8); Lymphocytes % 4.9 %; Mean Corpuscular HGB Conc 33.1 g/dL (30.0-36.0); Mean Corpuscular Hemoglobin 27.7 pg (28.0-34.0); Mean Corpuscular Volume 83.7 fl (80-94); Mean Platelet Volume 11.9 fL (7.4-10.4); Monocytes # 0.4 10^3/uL (0.2-0.9); Monocytes % 4.9 %; Neutrophils # 6.38 10^3/uL (1.8-7.7); Neutrophils % 87.5 %; Nucleated Red Blood Cells % 0 %; Platelet Count 97 10^3/cmm (130-400); Red Blood Count 4.59 10^6/uL (4.1-5.3); Red Cell Distribution Width 15.2 % (12.1-15.1); White Blood Count 7.3 10^3/uL (4.0-10.0)
[2021-09-14] MEDS: esmolol drip 2,500 MG/250 ML PREMIX 18.3 MG IV (09:11)
[2021-09-14] MEDS: aspirin 81 mg Chew Tablet 324 MG PO (09:12)
[2021-09-14] MEDS: metoprolol tartrate 1 mg/1 mL SDV 5 mL 5 MG IVP (09:12)
--- NOTE | 2021-09-14 09:14 | W.ED.ARRPALP ---
HPI - Arrhythmia/Palpitations General: Chief Complaint: Shortness of Breath/Dyspnea Stated Complaint: SOB Time Seen by Provider: 09/14/21 08:58 Source: patient Mode of arrival: wheelchair History of Present Illness: 70-year-old male presents emergency room with complaints of rapid heart rate and shortness of breath. 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 Evidently had delayed diagnostic procedure because there is some logistical issues with his appointments. He is actually not able to tell me what type cancer he has any arise. He says for the last several days she has had rapid heart rate increasing shortness of breath and orthopnea. He normally wears 3 L by nasal cannula which is what he is on when he arrives here. There is some mild chest discomfort as well. Old records reviewed. complaint: rapid heart beat, heart racing and palpitations Onset (ago): day(s) Duration: constant Severity: moderate Context: occurred during rest Associated symptoms: Reports anxiety and short of breath; Deny nausea or vomiting Treatments prior to arrival: beta-claude Review of Systems Const: Denies: fever(s), chills, body aches, change in appetite, fatigue or malaise ENMT: Denies: throat pain, ear or mastoid pain, nasal discharge or nasal congestion Card: Reports: palpitations, irregular heart rhythm, dyspnea on exertion and orthopnea; Denies: chest pain or edema Resp: Reports: dyspnea; Denies: productive cough or non-productive cough GI: Denies: abdominal pain, nausea, vomiting, hematemesis, coffee ground emesis, diarrhea, constipation, bloating, hematochezia or melena : Denies: flank pain, difficulty urinating, dysuria, urinary frequency or urinary urgency Skin/Breast: Denies: rash or pruritus Psych: Reports: anxiety PFSH ED PFSH: Medical History Anxiety Atrial flutter with rapid ventricular response Cancer of left lung Non-small cell lung cancer, stage IIIc Chronic low back pain COPD (chronic obstructive pulmonary disease) Encounter for long-term use of opiate analgesic Gastric varices GERD (gastroesophageal reflux disease) Hypertension 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) use of non-steroidal anti-inflammatories (nsaid) Major depressive disorder, recurrent, in full remission Neck Pain Opioid contract exists Post-traumatic stress disorder, chronic Psychiatric care Smoker Splenomegaly Thrombocytopenia Surgical History H/O skin graft History of hip surgery History of repair of aneurysm of abdominal aorta using endovascular stent graft History of shoulder surgery Family History Other CAD (coronary artery disease) Cancer Lung disease Social History Smoking and tobacco status: current some day smoker cigarettes Packs smoked per day: 1 Years cigarettes smoked: 40 [ Other cigarette details: less than 1ppd currently] Second hand smoke exposure: No Alcohol intake: never Marital status: History of recent travel: No Physical Exam Const: GENERAL APPEARANCE: cooperative and comfortable ORIENTATION/CONSCIOUSNESS: Yes awake HENMT: COMMON NORMALS: normocephalic, atraumatic and hearing grossly normal bilaterally HEAD & SCALP: normocephalic and atraumatic Resp: EFFORT & INSPECTION: Yes uses accessory muscles and Yes audible wheezes AUSCULTATION: crackles Cardio: COMMON NORMALS: regular rhythm RATE: tachycardic RHYTHM: regular rhythm GI: COMMON NORMALS: Soft to palpation and No hepatosplenomegaly present AUSCULTATION: Yes normoactive bowel sounds PALPATION: Yes Soft to palpation, No Tenderness to palpation present (GI), No Guarding due to palpation present (GI) and Yes No hepatosplenomegaly present Extremity: COMMON NORMALS: normal to inspection, capillary refill normal, no clubbing, cyanosis or edema, no calf tenderness and no pedal edema Skin: COMMON NORMALS: no rashes or lesions noted GENERAL SKIN EXAM: no rashes or lesions noted Course Vital Signs: Vital signs: Vital Signs Temperature 97.9 F 09/15/21 02:30 Pulse Rate 87 09/15/21 05:18 Respiratory Rate 17 09/15/21 04:15 Blood Pressure 97/50 09/15/21 04:15 Pulse Oximetry 95 09/15/21 04:15 MDM - Arrhythmia/Palpitations Medical Decision Making Patient in a flutter is actually quite regular at this point. His rate was very high initially tried esmolol after giving some push dose metoprolol while waiting for the drip. He did not really respond very well at all to the esmolol we switched to Cardizem which was much more effective. Discussed Dr. Corbin will admit orders are written. Medical Records I reviewed the patient's medical records. Lab Data I reviewed the patient's lab results. : 09/15/21 05:09 09/15/21 05:09 Radiology Impressions Chest X-Ray 09/14/21 08:54 IMPRESSION: Relatively stable abnormal chest. It would however be difficult to identify active tumor or inflammatory disease in the left upper lung and apex region Laboratory Results WBC 7.3 10^3/uL (4.0-10.0) 09/14/21 09:00 RBC 4.59 10^6/uL (4.1-5.3) 09/14/21 09:00 Hgb 12.7 g/dL (11.7-16.6) 09/14/21 09:00 Hct 38.4 % (42.0-52.0) L 09/14/21 09:00 MCV 83.7 fl (80-94) 09/14/21 09:00 MCH 27.7 pg (28.0-34.0) L 09/14/21 09:00 MCHC 33.1 g/dL (30.0-36.0) 09/14/21 09:00 RDW 15.2 % (12.1-15.1) H 09/14/21 09:00 Plt Count 97 10^3/cmm (130-400) L 09/14/21 09:00 MPV 11.9 fL (7.4-10.4) H 09/14/21 09:00 Neut % (Auto) 87.5 % 09/14/21 09:00 Lymph % (Auto) 4.9 % 09/14/21 09:00 [place] % (Auto) 4.9 % 09/14/21 09:00 Eos % (Auto) 0.4 % 09/14/21 09:00 Baso % (Auto) 0.8 % 09/14/21 09:00 Neut # (Auto) 6.38 10^3/uL (1.8-7.7) 09/14/21 09:00 Lymph # (Auto) 0.4 10^3/uL (0.8-4.8) L 09/14/21 09:00 [place] # (Auto) 0.4 10^3/uL (0.2-0.9) 09/14/21 09:00 Eos # (Auto) 0.0 10^3/uL (0.0-0.8) 09/14/21 09:00 Baso # (Auto) 0.1 10^3/uL (0.0-0.1) 09/14/21 09:00 Nucleated RBC % (auto) 0 % 09/14/21 09:00 Nucleated RBCs # 0.0 /100WBC 09/14/21 09:00 PT 13.70 SECONDS (12.1-14.9) 09/14/21 09:00 INR 1.02 (0.8-1.2) 09/14/21 09:00 APTT 32.6 SECONDS (23.9-36.7) 09/14/21 09:00 Specimen Type Arterial 09/14/21 08:58 Sample Site Brachial, right 09/14/21 08:58 ABG pH 7.45 (7.35-7.45) 09/14/21 08:58 ABG pCO2 32.6 mmHg (35-45) L 09/14/21 08:58 ABG pO2 103.0 mmHg (80.0-100.0) H 09/14/21 08:58 ABG HCO3 22.6 mmol/L (22-26) 09/14/21 08:58 ABG O2 Saturation 98.6 09/14/21 08:58 ABG Base Excess -0.8 mmol/L (-2.0-2.0) 09/14/21 08:58 Shad Test N/a 09/14/21 08:58 A-a O2 Gradient 11.1 mmHg (5-10) H 09/14/21 08:58 Hematocrit 39.8 % (42-52) L 09/14/21 08:58 Hgb O2 Saturation 96.8 % (95-100) 09/14/21 08:58 Carboxyhemoglobin 1.0 %THgb (0.4-20.1) 09/14/21 08:58 Methemoglobin 0.9 % (0.4-1.5) 09/14/21 08:58 Total Hemoglobin 13.0 g/dL (14-18) L 09/14/21 08:58 Sodium 140.0 mmol/L (131-143) 09/14/21 08:58 Potassium 4.0 mmol/L (3.5-5.0) 09/14/21 08:58 Glucose 110.0 mg/dL (70-115) 09/14/21 08:58 Ionized Calcium 1.2 mmol/L (1.1-1.4) 09/14/21 08:58 O2 Delivery Device Nc 09/14/21 08:58 O2 Liters/Min 3.0 % 09/14/21 08:58 FiO2 32.0 % 09/14/21 08:58 Steam And Power Supervisor ID [id number] 09/14/21 08:58 Sodium 137 mmol/L (136-145) 09/14/21 09:00 Potassium 4.1 mmol/L (3.5-5.1) 09/14/21 09:00 Chloride 103 mmol/L (98-107) 09/14/21 09:00 Carbon Dioxide 21 mmol/L (22-29) L 09/14/21 09:00 Anion Gap 17.1 (5-19) 09/14/21 09:00 BUN 18 mg/dL (8-23) 09/14/21 09:00 Creatinine 0.9 mg/dL (0.7-1.2) 09/14/21 09:00 GFR Calculation Not Reportable 09/14/21 09:00 Glucose 103 mg/dL (65-115) 09/14/21 09:00 Calculated Osmolality 286 mOsm/kg (285-295) 09/14/21 09:00 Calcium 8.6 mg/dL (8.5-10.5) 09/14/21 09:00 Magnesium 1.9 mg/dL (1.7-2.3) 09/14/21 09:00 Total Bilirubin 0.7 mg/dL (0.15-1.2) 09/14/21 09:00 AST 16 U/L (0-40) 09/14/21 09:00 ALT 14 U/L (0-41) 09/14/21 09:00 Alkaline Phosphatase 247 IU/L (40-130) H 09/14/21 09:00 Creatine Kinase 28 U/L (39-308) L 09/14/21 09:00 Troponin T Baseline 11 ng/L (0-15) 09/14/21 09:00 Total Protein 7.4 g/dL (6.6-8.7) 09/14/21 09:00 Albumin 3.5 g/dL (3.5-5.2) 09/14/21 09:00 Globulin 3.9 g/dL (1.3-4.6) 09/14/21 09:00 TSH 0.90 uIU/mL (0.27-4.20) 09/14/21 09:00 Discharge Plan Discharge Patient Disposition: Admitted As Inpatient Admit Provider: Michael Self Clinical Impression: Atrial flutter with rapid ventricular response, Thrombocytopenia, COPD (chronic obstructive pulmonary disease), Splenomegaly, Non-small cell lung cancer, Pneumonia Condition: Stable Coding Level of Care Code ED Adult Remedial Education Instructor for Maria Luz Fwd Exam Detailed
[2021-09-14 09:35] LABS: INR 1.02 (0.8-1.2)
[2021-09-14 09:36] LABS: Partial Thromboplastin Time 32.6 SECONDS (23.9-36.7)
[2021-09-14 09:38] LABS: Alanine Aminotransferase 14 U/L (0-41); Albumin Level 3.5 g/dL (3.5-5.2); Alkaline Phosphatase 247 IU/L (40-130); Anion Gap 17.1 (5-19); Aspartate Amino Transferase 16 U/L (0-40); Blood Urea Nitrogen 18 mg/dL (8-23); Calcium 8.6 mg/dL (8.5-10.5); Carbon Dioxide 21 mmol/L (22-29); Chloride 103 mmol/L (98-107); Creatine Phosphokinase 28 U/L (39-308); Globulin 3.9 g/dL (1.3-4.6); Glucose 103 mg/dL (65-115); Osmolality Calculated 286 mOsm/kg (285-295); Potassium 4.1 mmol/L (3.5-5.1); Sodium 137 mmol/L (136-145); Total Bilirubin 0.7 mg/dL (0.15-1.2); Total Protein 7.4 g/dL (6.6-8.7)
[2021-09-14 10:26] LABS: Troponin(5th) Baseline 11 ng/L (0-15)
--- NOTE | 2021-09-14 10:42 | PM.HP ---
Providers/Chief Complaint Admitting Physician: Michael Self MD Primary Care Provider: Dr. Bergman Chief Complaint: SOB History of Present Illness Miguel Aguilar is a 70 year old male who presented to the ED this morning with shortness of breath and weakness onset 1 day. He reports he feels tired, can't walk or exert himself without feeling run out or short of breath. He reports this general weakness has been affecting his for approximately 3 months but he has only been run out and short of breath for 1 day. He states his noted his heart rate and encouraged him to come to the hospital. He denies any fever, headache or chills. He denies feeling any chest pain, discomfort, or palpitations. He reports a productive cough and shortness of breath. He states the productivity of his cough is nothing unusual. He also reports throat discomfort, which he suspects is from his port. Patient denies any nausea or vomiting, but reports having large amounts of diarrhea. 5 mg metoprolol IVP and esmolol drip were attempted in the ED which brought his rate to 140-150. He was then switched to a IV diltiazem drip, which decreased his rate to 110-120. It appears from reviewing old records he has not yet started his radiation treatments. He may have received 1 chemotherapy dose on September 07, although the office note is not yet complete. Review of Systems General: Reports: 10 or more systems reviewed and unremarkable except in HPI and below Const: Reports: fatigue and malaise; Denies: fever(s) ENMT: Reports: throat pain Card: Reports: dyspnea on exertion; Denies: chest pain or palpitations Resp: Reports: dyspnea and productive cough GI: Denies: abdominal pain, nausea, vomiting, hematochezia or melena : Denies: flank pain Musc: Reports: back pain; Denies: neck pain Skin/Breast: Denies: rash Neuro: Denies: headache(s) Psych: Reports: anxiety Endo: Denies: polyuria Jerrell/Lymph: Denies: easy bruising All/Imm: Denies: urticaria Medications/Allergies Home Medications Medication Instructions Recorded Confirmed Last Taken Type albuterol sulfate 90 mcg/actuation 1 - 2 puff INHALATION Q4H PRN 10/05/20 09/14/21 08/17/21 History aerosol inhaler (Ventolin HFA) omeprazole 40 mg capsule,delayed 40 mg PO DAILY 10/05/20 09/14/21 09/13/21 History release diphenhydramine HCl 25 mg tablet 25 mg PO EVERY OTHER DAY 07/14/21 09/14/21 Unknown History (Benadryl Allergy) metoprolol tartrate 25 mg tablet 25 mg PO BID@0900,2100 #180 tab 07/15/21 09/14/21 09/13/21 Rx fluticasone fur. 100 mcg-umeclid 1 inh INHALATION DAILY #60 ea 07/19/21 09/14/21 09/13/21 Rx 62.5 mcg-vilant 25 mcg inhalat.powder (Trelegy Ellipta) oxycodone-acetaminophen 5 mg-325 1 - 2 tab PO .q4-6h PRN 30 Days 07/27/21 09/14/21 Unknown Rx mg tablet (Percocet) #60 tab diphenoxylate-atropine 2.5 1 tab PO BID PRN #14 tab 08/13/21 09/14/21 Unknown Rx mg-0.025 mg tablet (Lomotil) morphine 30 mg tablet,extended 60 mg PO Q12H 30 Days #120 tab 08/19/21 09/14/21 09/13/21 Rx release clonazepam 1 mg tablet (Klonopin) 1 mg PO TID #90 tab 08/29/21 09/14/21 09/13/21 Rx ondansetron HCl 8 mg tablet 8 mg PO .q8hr PRN #30 tab 09/08/21 09/14/21 Unknown Rx Allergies Allergy/AdvReac Type Severity Reaction Status Date / Time prochlorperazine Allergy Unknown Unknown Verified 09/07/21 08:09 [From Compazine] pregabalin [From Lyrica] AdvReac Unknown NIGHTMARES Verified 09/07/21 08:09 trazodone AdvReac Unknown SHAKING Verified 09/07/21 08:09 PFSH Acute PFSH: Medical History (Updated 09/14/21 @ 11:38 by Michael Self MD) Anxiety Atrial flutter with rapid ventricular response Cancer of left lung Non-small cell lung cancer, stage IIIc Chronic low back pain COPD (chronic obstructive pulmonary disease) Encounter for long-term use of opiate analgesic Gastric varices GERD (gastroesophageal reflux disease) 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) use of non-steroidal anti-inflammatories (nsaid) Major depressive disorder, recurrent, in full remission Neck Pain Opioid contract exists Post-traumatic stress disorder, chronic Psychiatric care Smoker Splenomegaly Thrombocytopenia Surgical History H/O skin graft History of hip surgery History of repair of aneurysm of abdominal aorta using endovascular stent graft History of shoulder surgery Family History Other CAD (coronary artery disease) Cancer Lung disease Social History Smoking and tobacco status: current some day smoker cigarettes Packs smoked per day: 1 Years cigarettes smoked: 40 [ Other cigarette details: less than 1ppd currently] Second hand smoke exposure: No Alcohol intake: never Marital status: History of recent travel: No Vitals/I&O/Wt Last Vital Signs Temp 97.9 F 09/14/21 09:02 Pulse 149 H 09/14/21 10:03 Resp 31 H 09/14/21 10:03 BP 125/72 09/14/21 10:03 Pulse Ox 95 09/14/21 10:03 09/13/21 09/14/21 09/14/21 22:59 06:59 14:59 Intake Total 29.238 / 29.238 Balance 29.238 / 29.238 Weight last 48 hrs Weight 56.245 kg Physical Exam Narrative: Mr. Aguilar, a 70 year old white male, resting in bed, showing moderate distress and difficulty breathing, on 3L NC oxygen, and a diltiazem drip. HEENT: Atraumatic, normocephalic NEURO: Alert and oriented, normal speech, no slurring noted. CV: Tachycardia with regular rhythm, A-flutter with rapid rate noted on EKG. PULM/RESP: Lungs clear to auscultation bilaterally, accessory muscle use noted, >90% O2 saturation on 3L NC. GI: Abdomen soft, nontender, with normoactive bowel sounds. : Deferred, no complaint from patient. Extremities: No edema noted. Const: COMMON NORMALS: patient oriented x3 GENERAL APPEARANCE: cooperative, in distress and anxious HENMT: COMMON NORMALS: normocephalic, atraumatic, external ears normal and moist oral mucous membranes Eye: GENERAL EYE: appearance normal, both eyes and all related structures Neck/C-Spine: COMMON NORMALS: supple and Thyroid normal GENERAL: Yes normal visual inspection and Yes trachea midline Chest: COMMONS NORMALS: normal inspection of the chest CHEST: Yes Symmetrical chest wall rise Resp: COMMON NORMALS: normal respiratory effort, No retractions and clear to auscultation bilaterally Cardio: COMMON NORMALS: regular rhythm and No murmurs present (Cardio); negative for regular rate (tachycardia) RATE: tachycardic RHYTHM: regular rhythm GI: COMMON NORMALS: Normal to inspection, nondistended, normoactive bowel sounds present and Soft to palpation AUSCULTATION: Yes normoactive bowel sounds : OTHER: Deferred, no patient complains Back/Pelvis: COMMON NORMALS: thoracic and lumbar spine normal to inspection Extremity: COMMON NORMALS: normal to inspection Neuro: COMMON NORMALS: patient oriented x3 and moves all extremities SENSORIUM/ORIENTATION: Yes alert, Yes oriented to person, Yes oriented to place and Yes oriented to time Psych: COMMON NORMALS: mental status grossly normal, Normal thought process present, cooperative, normal affect and speech normal Skin: COMMON NORMALS: no rashes or lesions noted, no wounds, no jaundice, no petechiae and no mottling Data : 09/14/21 09:00 09/14/21 09:00 Other Labs: Echocardiogram June 2021 demonstrated an EF of 55 to 60%, 1/4 diastolic dysfunction, trace mitral regurgitation Chest x-ray shows left-sided infiltrate, right-sided port, COPD EKG demonstrates atrial flutter,, rate of 160, normal axis, nonspecific ST-T wave flattening to depression V4 through 6 INR normal ABG with a pH of 7.45, PCO2 of 33, PO2 of 103 on 3 L of oxygen LFTs within normal limits with exception of alk phos of 247. CK is 28, calcium 8.6, albumin 3.5, troponin 11. TSH and magnesium level have been ordered. A&P Assessment and plan (1) Atrial flutter with rapid ventricular response: Patient presents with atrial flutter with rapid ventricular rate in 160 bpm. Metoprolol at home with no past history of Afib. Metoprolol was admitted in the ED without success. Esmolol drip was initiated without success. Esmolol was changed to IV diltiazem drip. Patient responded to diltiazem drip with rate in 110-120. Initiate PO diltiazem and titrate off drip. Increase patient metoprolol dose to control heart rate as needed. Considered anticoagulation but will visit with family regarding this. I think he is somewhat high risk secondary to his thrombocytopenia, and history of gastric varices on imaging. We will provide DVT prophylaxis in the hospital. Initiate aspirin daily. No need for repeat echocardiogram. Has recent 1 in the chart. TSH and magnesium will be checked Status: Acute (2) Pneumonia: Evidence of postobstructive pneumonia on x-ray. He does not have a fever or white blood cell count. Secondary to his comorbidity of atrial flutter, and multiple other medical problems will initiate Levaquin 750 mg p.o. daily. Sputum culture Status: Acute (3) COPD (chronic obstructive pulmonary disease): Patient has history of smoking with COPD. Patient reports needing 3 L NC at home. Patient reports having productive cough. He shows no evidence of a COPD exacerbation currently. Will maintain patient on oxygen as needed. Initiate albuterol with Atrovent. Initiate budesonide. Encourage smoking abstinence Status: Acute (4) Thrombocytopenia: Patient platelet count 97 with chronic thrombocytopenia, likely due to his splenomegaly. Also noted gastric varicies on previous imaging. Continue to monitor. Status: Acute (5) Anxiety: Patient has history of chronic anxiety/depression for which he takes clonazepam at home. Continue patient clonazepam inpatient. Status: Acute Plan Multiple other medical problems as listed in his past medical history. Continue many of this chronic home medication. Attestations Medical Necessity Statement*: Will need greater than 2 midnight stay for treatment of atrial flutter with rapid ventricular rate, for achieving rate control in this patient with malignancy. Coding Level of Care Code Acute Supervisor Fitting for [facility] Fwd Exam Comprehensive Diagnoses Atrial flutter with rapid ventricular response I48.92 COPD (chronic obstructive pulmonary disease) J44.9 Thrombocytopenia D69.6 Anxiety F41.9 Pneumonia J18.9
[2021-09-14] MEDS: dilTIAZem 5 mg/mL SDV 5 mL 20 MG IVP (10:47)
[2021-09-14 10:54] LABS: Magnesium 1.9 mg/dL (1.7-2.3)
--- NOTE | 2021-09-14 10:59 | ECG_ITS ---
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 Measurements Intervals [place] Rate: 96 P: FL: QRS: 71 QRSD: 76 T: 90 QT: 307 QTc: 389 Interpretive Statements ATRIAL FLUTTER/TACHYCARDIA ABNORMAL RHYTHM ECG Compared to ECG 09/14/2021 08:56:20 ST (T wave) deviation no longer present Electronically Signed On 09-14-2021 20:13:32 CDT by Radha Barclay M.D. [id number]
[2021-09-14 11:20] LABS: Troponin 5 2HR 12.01 ng/L (0-15)
[2021-09-14 11:32] LABS: Troponin 5 2HR Delta 1.01 ABS# (0-10)
[2021-09-14] MEDS: enoxaparin 40 mg/0.4 mL Syringe SUBCUT (12:45)
[2021-09-14] MEDS: dilTIAZem 30 mg Tablet PO ×2 (12:45→18:17)
[2021-09-14] MEDS: levoFLOXacin 750 mg Tablet PO (12:45)
[2021-09-14] MEDS: morphine ER (12 HR) 30 mg tablet 60 MG PO (12:46)
[2021-09-14] MEDS: CLONazepam 1 mg Tablet PO ×2 (14:37→20:50)
--- NOTE | 2021-09-14 14:59 | ECG_ITS ---
[facility] Test Date: 2021-09-14 Pat Name: Miguel Aguilar Department: Room: [facility]07 Gender: Male Hha: : 1950 Requested By: Rah Lyman Order Number: [id number] Christofer MD: Radha Barclay M.D. Measurements Intervals [place] Rate: 80 P: 83 DC: 152 QRS: 59 QRSD: 77 T: 91 QT: 372 QTc: 430 Interpretive Statements SINUS RHYTHM WITH OCCASIONAL ECTOPIC PREMATURE COMPLEXES Compared to ECG 09/14/2021 11:05:33 Atrial flutter no longer present Electronically Signed On 09-14-2021 20:15:26 CDT by Radha Barclay M.D. [id number]
[2021-09-14 15:18] LABS: Troponin 5 6HR 11.33 ng/L (0-15)
[2021-09-14] MEDS: ipratropium-albuterol 3 mL Neb INHALATION ×2 (15:23→20:25)
[2021-09-14 15:32] LABS: Troponin 5 6HR Delta 0.33 ng/L (0-12)
[2021-09-14] MEDS: budesonide 0.5 mg/2 mL Neb INHALATION (20:25)
[2021-09-14] MEDS: metoprolol tartrate 50 mg Tablet PO (20:50)
[2021-09-15] VITALS (96 sets, daily range): BP systolic 76–157; BP diastolic 32–78; PULSE 66–96; RESP 0–38; TEMP 36.3–36.8; O2SAT 79–100
[2021-09-15] MEDS: sodium chloride 0.9% 500 ML 999 ML IV (02:20)
[2021-09-15] MEDS: ipratropium-albuterol 3 mL Neb INHALATION ×2 (03:47→20:14)
--- NOTE | 2021-09-15 04:28 | PC.NURSE ---
0422 pt had 12 beats of V tach. pt complained of SOB and palpitations. MD Mick was called at 0427 and informed of Vach run and pt symptoms, surrent HR 83 and BP 97/50 (65). Per cont to monitor for now.
[2021-09-15] MEDS: dilTIAZem 30 mg Tablet PO (05:06)
[2021-09-15] MEDS: levoFLOXacin 750 mg Tablet PO (05:06)
[2021-09-15 05:27] LABS: Basophils % 0.8 %; Eosinophils % 0.8 %; Hematocrit 31.9 % (42.0-52.0); Hemoglobin 10.3 g/dL (11.7-16.6); Lymphocytes # 0.3 10^3/uL (0.8-4.8); Lymphocytes % 10.1 %; Mean Corpuscular HGB Conc 32.3 g/dL (30.0-36.0); Mean Corpuscular Hemoglobin 27.3 pg (28.0-34.0); Mean Corpuscular Volume 84.6 fl (80-94); Monocytes # 0.2 10^3/uL (0.2-0.9); Monocytes % 9.3 %; Neutrophils # 1.94 10^3/uL (1.8-7.7); Neutrophils % 78.6 %; Nucleated Red Blood Cells % 0 %; Platelet Count 62 10^3/cmm (130-400); Red Blood Count 3.77 10^6/uL (4.1-5.3); Red Cell Distribution Width 15.2 % (12.1-15.1); White Blood Count 2.5 10^3/uL (4.0-10.0)
[2021-09-15 05:45] LABS: Alanine Aminotransferase 12 U/L (0-41); Albumin Level 2.9 g/dL (3.5-5.2); Alkaline Phosphatase 216 IU/L (40-130); Anion Gap 15.2 (5-19); Aspartate Amino Transferase 16 U/L (0-40); Blood Urea Nitrogen 16 mg/dL (8-23); Carbon Dioxide 22 mmol/L (22-29); Chloride 108 mmol/L (98-107); Globulin 3.5 g/dL (1.3-4.6); Glucose 105 mg/dL (65-115); Osmolality Calculated 294 mOsm/kg (285-295); Potassium 4.2 mmol/L (3.5-5.1); Sodium 141 mmol/L (136-145); Total Bilirubin 0.3 mg/dL (0.15-1.2); Total Protein 6.4 g/dL (6.6-8.7)
[2021-09-15 07:13] LABS: Add Urine Microscopic? NO; Charge for UA Resulting for Rev
--- NOTE | 2021-09-15 07:18 | PM.PN ---
Subjective Subjective: Miguel reports he has had some stomach cramps. Would like something to eat. Diarrheal stool yesterday [place] and C. difficile. Does feel better than yesterday. Medications: Reviewed: Yes Vitals/I&O/Wt Last Vital Signs Temp 97.9 F 09/15/21 02:30 Pulse 87 09/15/21 05:18 Resp 17 09/15/21 04:15 BP 97/50 09/15/21 04:15 Pulse Ox 95 09/15/21 04:15 09/14/21 09/15/21 09/15/21 22:59 06:59 14:59 Intake Total 41.083 / 173.057 500 / 673.057 Output Total 175 / 175 Balance -133.917 / -1.943 500 / 498.057 Weight last 48 hrs Weight 56.245 kg Physical Exam Narrative: General exam no distress, alert and conversive Neuro no obvious focal deficits Cardiovascular regular rate and rhythm, with frequent premature beats Lungs clear no wheezing or crackles Abdomen is soft. Positive bowel sounds. Extremities no cyanosis clubbing or edema Skin no rash Data : 09/15/21 05:09 09/15/21 05:09 Micro: Microbiology 09/14/21 14:10 C.difficile Toxin B Gene (PCR) - Final Stool Routine Collection A&P Assessment and plan (1) Atrial flutter with rapid ventricular response: Patient presents with atrial flutter with rapid ventricular rate in 160 bpm. Metoprolol at home with no past history of Afib. Metoprolol was admitted in the ED without success. Esmolol drip was initiated without success. Esmolol was changed to IV diltiazem drip. Patient responded to diltiazem drip with rate in 110-120. Patient has since converted to sinus rhythm With higher dose of metoprolol he became somewhat hypotensive. Will reduce dose of metoprolol to 25 mg twice daily Changed to extended release diltiazem Not candidate for anticoagulation secondary to history of gastric varices as well as thrombocytopenia Aspirin 81 mg daily No need for repeat echocardiogram. Has recent 1 in the chart. TSH and magnesium checked and normal. Status: Acute (2) Pneumonia: Evidence of postobstructive pneumonia on x-ray. He does not have a fever or white blood cell count. Secondary to his comorbidity of atrial flutter, and multiple other medical problems will initiate Levaquin 750 mg p.o. daily. Plan to continue this 5 days total, short course secondary to C. difficile Sputum culture pending Status: Acute (3) COPD (chronic obstructive pulmonary disease): Patient has history of smoking with COPD. Patient reports needing 3 L NC at home. Patient reports having productive cough. He shows no evidence of a COPD exacerbation currently. Will maintain patient on oxygen as needed. Continue pulmonary toilet Encourage smoking abstinence Status: Acute (4) Thrombocytopenia: Thrombocytopenia noted, likely due to his splenomegaly. Also noted gastric varicies on previous imaging. Continue to monitor. Status: Acute (5) Anxiety: Patient has history of chronic anxiety/depression for which he takes clonazepam at home. Continue patient clonazepam inpatient. Status: Acute (6) C. difficile colitis: Present on admission. Patient complained of some diarrhea at home. Vancomycin p.o. has been initiated. Status: Acute Plan Multiple other medical problems as listed in his past medical history. Continue many of this chronic home medication. Transfer out of ICU to cardiac stepdown unit Close monitoring for adjustment of blood pressure medication, treatment of C. difficile, treatment of pneumonia Possible discharge tomorrow if continues to improve Attestations Medical Necessity Statement*: Needs continued hospitalization for adjustment of medication secondary to atrial fibrillation, development of hypotension, C. 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 difficile colitis A04.72
[2021-09-15 07:21] LABS: Bilirubin Urine Neg (Negative); Blood Urine Neg (Negative); Glucose Urine UA Norm (Normal); Ketones Urine Negative (Negative); Leukocyte Esterase Urine Negative (Negative); Nitrate Urine Negative (Negative); Protein Urine Neg (Negative); Specific Gravity, Urine 1.015 (1.005-1.030); Urine Appearance Clear (CLEAR); Urine Color Amber (Yellow); Urobilinogen Urine 8 mg/dL (Negative); pH Urine 6.5 (5-7)
[2021-09-15] MEDS: CLONazepam 1 mg Tablet PO ×3 (08:07→20:37)
[2021-09-15] MEDS: pantoprazole DR 40 mg Tablet PO (08:07)
[2021-09-15] MEDS: aspirin 81 mg EC Tablet PO (08:07)
[2021-09-15] MEDS: metoprolol tartrate 25 mg Tablet PO ×2 (08:07→20:37)
[2021-09-15 08:29] LABS: Magnesium 1.7 mg/dL (1.7-2.3)
[2021-09-15] MEDS: magnesium sulfate premix 2 GM/50 ML PIGGYBACK IV (09:04)
--- NOTE | 2021-09-15 09:18 | PC.NURSE ---
9782 When connecting pt to IV, pt voiced to this nurse, if I could get to the roof, I would jump off . When asked about this statement, pt stated I want to kill myself . Pt states that he has suicidal thoughts often and currently sees a psychiatrist and has for 21 years. notified and is currently at bedside. Will monitor.
--- NOTE | 2021-09-15 09:31 | PC.CHAP ---
Pastoral Care Encounter/Spiritual Assessment Type of Contact [] Declined radiological defense officer visit [] Patient/Family/Request visit [] Outpatient visit [] Follow-up visit [] Physician referral [] Code/Alert [x] Routine visit [] Staff referral [] Actively dying [] Patient sleeping [] Family support [] [] Out of room [] Palliative care [] [] Receiving care in room [] Pre-surgical visit [] Trauma [] Long length of stay [x] ICU visit [] Other: Relational/Emotional Strength [] Patient feels connected with others/family/visitors/staff [] Distress [] Loneliness/isolation [] Abandonment Spirituality of Patient [] Person of Ana [] Attends Cheondoism of their Ana [] Believes in Prayer [] Reads Bible or Anabaptism materials [] There are Spiritual issues to be addressed Overlock Sleeve Setter Interventions [x] Prayer [x] Active listening [x Non-anxious presence [x] Spiritual/emotional support [] Crisis/trauma care [] Spiritual counseling [] Bereavement support [] Provided bereavement packet [] Provided Bible/devotional materials [] Provided toy/stuffed animal, coloring book to patient or family member [] Provided Communion [] Anointing/[place] [] Salvation [x] Completed spiritual assessment [] Other: Impact on Illness or Injury [] Angry [] Fearful [] Anxious [] Often cries [] Exhaustion [] Unable to work [] Unable to attend muslim [] Unable to walk/stand [] Unable to read [] Unable to drive [] Unable to eat/drink [] Unable to sleep [] Unable to be with family [] Patient intubated [] Other: Summary having problems breathing... needed turning over.. called for assistance Time spent with patient 5 min
[2021-09-15] MEDS: dilTIAZem ER (24HR) 120 mg Capsule PO (10:34)
[2021-09-15] MEDS: acetaminophen 325 mg Tablet 650 MG PO (10:34)
[2021-09-15] MEDS: enoxaparin 40 mg/0.4 mL Syringe SUBCUT (12:47)
--- NOTE | 2021-09-15 13:43 | P.NPUCON_ITS ---
Providers/Reason for Consult Consulting Physican/Specialty*: Memo Daniels MD. Psychiatry. Reason for Consult*: Evaluate for safety. Attending Physician: Michael Self MD Psych Consult HPI History of Present Illness Miguel Aguilar is a 70 year old male who presented to the emergency department with the following report: Chief complaint: General Medical Stated complaint: possible infection in port Time Seen by Provider: 08/28/21 21:23 Source: patient Mode of arrival: ambulatory Limitations: no limitations History of Present Illness: 70-year-old male that states that he had a port placed recently and is right chest and is concerned about infection. States he is also been extremely anxious he has taken Klonopin for years and states that he ran out 5 days ago. He states he feels like he is extremely anxious due to being out of his Klonopin. Denies any fever denies any pain has no other complaints at this time. Associated symptoms: Deny chest pain, dyspnea, headache(s), nausea, rash or vomiting. He was admitted to the ICU for definitive treatment of those issues and a psychiatric consult was requested to evaluate for concerns for safety. Patient presents today reporting that he has been in psychiatric care with counseling for many years. He denies any inpatient psychiatric care. He was fully cogni zant of his physical/medical challenges and reports that life has challenges for everyone. There are times that he was emotional during the interview but was very clear that he would never consider suicide as an option. He reports he has a that he loves and the mortgage loan counselor him. He described his had an amputation on these one of her legs and was in a wheelchair and he clearly felt significant compassion for her in her situation. He discussed having low mood at times but reports that antidepressants always make him feel worse. We reviewed different kinds of antidepressants that may not work the same and possibly could affect him differently but then became very clear that he was con cerned that we were there to find something to replace his Klonopin with. He discussed that the Klonopin had been at this dose essentially for 21 years and that is the 1 thing that makes him feel better and that it does improve his mood. We were clear that our purpose but not to be in either or situation but to consider something like Lexapro or Wellbutrin as an and. He was very clear that he was not interested in any antidepressants and then we had nothing to worry about from the standpoint of his being at risk for any self harming behavior. Remainder of the social history was unremarkable/noncontributory and decision-making. Meds Home Medications and Allergies Home Medications Medication Instructions Recorded Confirmed Last Taken Type albuterol sulfate 90 mcg/actuation 1 - 2 puff INHALATION Q4H PRN 10/05/20 09/14/21 08/17/21 History aerosol inhaler (Ventolin HFA) omeprazole 40 mg capsule,delayed 40 mg PO DAILY 10/05/20 09/14/21 09/13/21 History release diphenhydramine HCl 25 mg tablet 25 mg PO EVERY OTHER DAY 07/14/21 09/14/21 Unknown History (Benadryl Allergy) metoprolol tartrate 25 mg tablet 25 mg PO BID@0900,2100 #180 tab 07/15/21 09/14/21 09/13/21 Rx fluticasone fur. 100 mcg-umeclid 1 inh INHALATION DAILY #60 ea 07/19/21 09/14/21 09/13/21 Rx 62.5 mcg-vilant 25 mcg inhalat.powder (Trelegy Ellipta) oxycodone-acetaminophen 5 mg-325 1 - 2 tab PO .q4-6h PRN 30 Days 07/27/21 09/14/21 Unknown Rx mg tablet (Percocet) #60 tab diphenoxylate-atropine 2.5 1 tab PO BID PRN #14 tab 08/13/21 09/14/21 Unknown Rx mg-0.025 mg tablet (Lomotil) morphine 30 mg tablet,extended 60 mg PO Q12H 30 Days #120 tab 08/19/21 09/14/21 09/13/21 Rx release clonazepam 1 mg tablet (Klonopin) 1 mg PO TID #90 tab 08/29/21 09/14/21 09/13/21 Rx ondansetron HCl 8 mg tablet 8 mg PO .q8hr PRN #30 tab 09/08/21 09/14/21 Unknown Rx Allergies Allergy/AdvReac Type Severity Reaction Status Date / Time prochlorperazine Allergy Unknown Unknown Verified 09/07/21 08:09 [From Compazine] pregabalin [From Lyrica] AdvReac Unknown NIGHTMARES Verified 09/07/21 08:09 trazodone AdvReac Unknown SHAKING Verified 09/07/21 08:09 Current Medications Current Medications Generic Name Dose Route Start Last Admin Trade Name Anayeli PRN Reason Stop Dose Admin Acetaminophen 650 mg 09/14/21 12:04 09/15/21 10:34 Acetaminophen 325 Mg Tablet PO 650 mg Q6H PRN Administration Mild/Mod Pain Or Temp >/= 101 Albuterol/Ipratropium 3 ml 09/14/21 15:00 09/15/21 09:01 Ipratropium-Albuterol 3 Ml Neb INHALATION Not Given Q6H.RESPIRATORY CRESENCIO Aspirin 81 mg 09/15/21 09:00 09/15/21 08:07 Aspirin 81 Mg Ec Tablet PO 81 mg DAILY CRESENCIO Administration Budesonide 0.5 mg 09/14/21 20:00 09/15/21 09:02 Budesonide 0.5 Mg/2 Ml Neb INHALATION Not Given BID.RESPIRATORY CRESENCIO Clonazepam 1 mg 09/14/21 15:00 09/15/21 08:07 Clonazepam 1 Mg Tablet PO 1 mg TID CRESENCIO Administration Diltiazem HCl 120 mg 09/15/21 11:00 09/15/21 10:34 Diltiazem Er (24hr) 120 Mg Capsule PO 120 mg DAILY CRESENCIO Administration Enoxaparin Sodium 40 mg 09/14/21 12:04 09/15/21 12:47 Enoxaparin 40 Mg/0.4 Ml Syringe SUBCUT 40 mg Q24H CRESENCIO Administration Levofloxacin 750 mg 09/14/21 12:04 09/15/21 05:06 Levofloxacin 750 Mg Tablet PO 750 mg DAILY@0600 CRESENCIO Administration Protocol Metoprolol Tartrate 25 mg 09/15/21 09:00 09/15/21 08:07 Metoprolol Tartrate 25 Mg Tablet PO 25 mg BID@0900,2100 CRESENCIO Administration Morphine Sulfate 60 mg 09/14/21 12:04 09/15/21 12:15 Morphine Er (12 Hr) 30 Mg Tablet PO Not Given Q12H CRESENCIO Pantoprazole Sodium 40 mg 09/15/21 09:00 09/15/21 08:[address] 40 Mg Tablet PO 40 mg DAILY CRESENCIO Administration Vancomycin HCl 125 mg 09/14/21 22:00 09/15/21 10:32 Vancomycin 1,000 Mg Oral Kat (Btl) PO 125 mg Q6H CRESENCIO Administration PFSH NPU PFSH: Medical History Anxiety Atrial flutter with rapid ventricular response Cancer of left lung Non-small cell lung cancer, stage IIIc Chronic low back pain COPD (chronic obstructive pulmonary disease) Encounter for long-term use of opiate analgesic Gastric varices GERD (gastroesophageal reflux disease) Hypertension 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) use of non-steroidal anti-inflammatories (nsaid) Major depressive disorder, recurrent, in full remission Neck Pain Opioid contract exists Post-traumatic stress disorder, chronic Psychiatric care Smoker Splenomegaly Thrombocytopenia Surgical History H/O skin graft History of hip surgery History of repair of aneurysm of abdominal aorta using endovascular stent graft History of shoulder surgery Family History Other CAD (coronary artery disease) Cancer Lung disease Social History Smoking and tobacco status: current some day smoker cigarettes Packs smoked per day: 1 Years cigarettes smoked: 40 [ Other cigarette details: less than 1ppd currently] Second hand smoke exposure: No Alcohol intake: never Marital status: History of recent travel: No Mental Status Exam MSE Comments: This was an underweight versus cachectic white male in hospital gown with limited grooming but appropriate eye contact. No abnormal movements except for mild psychomotor retardation. Cooperative with exam in mild distress. Speech was slightly decreased rate and volume and dysarthric. Mood described as okay, affect slightly subdued. Thought process organized. Thought content: Patient denied suicidal or homicidal ideation, there were no delusions reported or noted, he denied any auditory or visual hallucinations. Attention and concentration were intact and memory appeared reliable but none were formally tested. He was alert and oriented x3. Insight was limited, judgment limited and impulse control is fair. Vitals/I&O/Wt Last Vital Signs Temp 98.3 F 09/15/21 08:00 Pulse 75 09/15/21 12:30 Resp 24 H 09/15/21 12:30 BP 100/47 09/15/21 12:30 Pulse Ox 96 09/15/21 12:30 09/14/21 09/15/2109/15/22 22:59 06:59 14:59 Intake Total 41.083 / 173.057 500 / 673.057 410 / 410 Output Total 175 / 175 350 / 350 Balance -133.917 / -1.943 500 / 498.057 60 / 60 Weight last 48 hrs Weight 56.245 kg Data NPU : 09/16/21 04:47 09/16/21 04:47 Micro: Microbiology 09/14/21 14:10 C.difficile Toxin B Gene (PCR) - Final Stool Routine Collection Microbiology 09/14/21 14:10 Stool Routine Collection C.difficile Toxin B Gene (PCR) - Final A&P Assessment and plan (1) C. difficile colitis: Status: Acute (2) Pneumonia: Status: Acute (3) Anxiety: Status: Acute (4) Atrial flutter with rapid ventricular response: Status: Acute (5) COPD (chronic obstructive pulmonary disease): Status: Acute (6) Post-traumatic stress disorder, chronic: Status: Acute (7) Major depressive disorder, recurrent: Status: Acute Plan This is a 70-year-old white male with a long history of anxiety and some depression with a significant advanced age cancer who presents open to discuss ion about his situation but not wanting any antidepressants at this time. 1. Continue current medication. In general the stable dose of benzodiazepine in a 70-year-old would not be desired, however given his situation and the possibility that hospice may be on the horizon is likely the least of her worries. 2. No signs of credible lethality at present. 3. Would recommend consideration of Wellbutrin XL or Lexapro starting at a lower dose like 5 mg if he were to reconsider something for his mood once he realizes this is not an attempt to discontinue his Klonopin. 4. We will likely follow an additional day before signing off. Attestations NPU Medical Necessity Statement*: N/A. Please see primary team note for medical necessity. Coding Level of Care Code Acute Manager Professional Development for Chg Fwd Diagnoses C. difficile colitis A04.72 Pneumonia J18.9 Anxiety F41.9 Atrial flutter with rapid ventricular response I48.92 COPD (chronic obstructive pulmonary disease) J44.9 Post-traumatic stress disorder, chronic F43.12 Major depressive disorder, recurrent F33.9
--- NOTE | 2021-09-15 18:12 | PC.NURSE ---
Shift Note Frequent safety and comfort rounds continue. Orders and/or nursing care completed as indicated. Patient monitored for response to intervention and treatment(s). Education provided includes treatment plan, medications and dc plan. Patient voices understanding but requires frequent reminders. VSS. Pt has been very anxious and requires a gentle touch and voice at times in order to calm him down. No further episodes of SI. Psych came to bedside earlier. Pt up to BSC x3 today for BM. Uses urinal and BSC for UOP. Will continue to monitor.
[2021-09-15] MEDS: ondansetron 2 mg/ML SDV 2 mL 4 MG IVP ×2 (19:00→23:10)
--- NOTE | 2021-09-15 19:00 | PC.NURSE ---
Received report on patient. Pt. is laying in bed, complains of nausea. No other needs identified at this time.
--- NOTE | 2021-09-15 19:15 | PC.NURSE ---
Entered patient room when he turned stone finisher light. Pt. states he is having persistant nausea and has to have more medicine. I instructed the patient that i cannot give anymore medication for nausea at this time. I educated that we have to give the medication time to work. He then said, I knew I would get an idiot for car shifter and continued many other obscenities towards me. I instructed him that he cannot speak to me in this way and that if continued to have nausea I will contact the doctor.
--- NOTE | 2021-09-15 20:00 | PC.NURSE ---
Pt. is still having nausea and vomiting. Called Dr. Barton with no answer. Will continue to call to attempt to get more medication for nausea
[2021-09-15] MEDS: budesonide 0.5 mg/2 mL Neb INHALATION (20:14)
--- NOTE | 2021-09-15 21:15 | PC.NURSE ---
Dr. Barton has been notified of persistent nausea. Order received for scopalamine patch.
--- NOTE | 2021-09-15 21:15 | PC.NURSE ---
Nausea Patient complaining of nausea/vomiting. Dr. Barton contacted and telephone order received for a scopolamine patch scheduled daily. See MAR for administration.
[2021-09-15] MEDS: scopolamine 1.5 Patch 1 PATCH TRANSDERMA (21:26)
[2021-09-15] MEDS: morphine ER (12 HR) 30 mg tablet 60 MG PO (23:08)
--- NOTE | 2021-09-15 23:30 | PC.NURSE ---
Patient having persistant nausea and vomiting. Called Dr. Barton and notified. Received orders for Reglan and abdominal xray to rule out any underlying etiology.
--- NOTE | 2021-09-15 23:32 | XRR_ITS ---
PROCEDURE INFORMATION: Exam: XR Abdomen Exam date and time: 09/15/2021 11:42 PM Age: 70 years old Clinical indication: Vomiting; Patient HX: R/O ileus or blockage; Additional info: Persistant nausea and vomiting TECHNIQUE: Imaging protocol: Radiologic exam of the abdomen. Views: Frontal supine view of the abdomen. 1 View. COMPARISON: CT angio chest w abd pel w con 07/14/2021 1:20 PM FINDINGS: Gastrointestinal tract: No visibly dilated bowel. Intraperitoneal space: No gross free air. Vasculature: Aortoiliac stent noted. Bones/joints: Left hip prosthesis is partially imaged. Moderate lower lumbar degenerative disease. XR/XR abdomen 1V* [id number] IMPRESSION: No acute findings.
[2021-09-15] MEDS: metoclopramide 5 mg/mL SDV 2 mL 10 MG IVP (23:41)
[2021-09-16] VITALS (75 sets, daily range): BP systolic 99–187; BP diastolic 47–161; PULSE 71–121; RESP 8–41; TEMP 36.3–36.7; O2SAT 89–100
--- NOTE | 2021-09-16 | PC.NURSE ---
Entered patient room due to patient continually pulling off monitor hookups and not using emesis basin when throwing up. Pt. continually will throw up in floor when emesis basin is within reach. Instructed patient that he needs to use emesis basin. Pt. states that he will do what he wants.
--- NOTE | 2021-09-16 | XR_ITS ---
WS: [id number] XR hip BI 2V wo/w pel [id number] REASON FOR EXAM: fall FINDINGS: RIGHT HIP: No fracture or focal bone lesion. Superior and inferior pubic rami are intact. Severe narrowing of the joint space with severe subchondral sclerosis and cystic change in the acetab ulum femoral head. There is protrusion of the femoral head into the acetabulum. LEFT HIP: No fracture or focal bone lesion. Superior and inferior pubic rami are intact. There is total left hip arthroplasty. There is ostial lysis and loosening of the femoral component wi th a gap between the femur and horizontal femoral post. These findings have been noted previously on an examination of 05/24/2016 but have progressed somewhat. XR/XR hip BI 3-4V wo/w pel [id number] IMPRESSION: Severe osteoarthritis of the right hip with no acute abnormality. Total left hip arthroplasty with loosening and ostial lysis as above. No acute abnormality.
--- NOTE | 2021-09-16 00:15 | PC.NURSE ---
Pt. is off of the monitor and yelling in room. Upon entering patient room there is fecal matter on floor, on bedside commode, in bed, on patient. Pt. yelling at nurse stating that he couldnt wait and that this is nurses fault and the nurse will have to clean it up. When asked why he didn't use the call light patient gets very angry and continues yelling. Nurse spends the next 30 minutes cleaning up floor bed and room and getting the patient cleaned up.
--- NOTE | 2021-09-16 01:55 | PC.NURSE ---
Nursing staff noticed the smell of smoke. Upon further investigation patient is smoking in room. Cigarettes and scada technician immediately taken from patient, Oxygen shut off and taken to new room. operations supervisor and security notified and charge nurse involved. Educated patient on the dangers of smoking in hospital and while on oxygen.
--- NOTE | 2021-09-16 03:21 | PC.NURSE ---
Patient having persistant nausea and vomiting. Called Dr. Barton and notified. Received orders for Reglan and abdominal xray to rule out any underlying etiology.
--- NOTE | 2021-09-16 03:22 | PC.NURSE ---
Patient smoking in room with oxygen on. Oxygen shut off immediately. All patient doors closed. Patient moved to different room. Tableau Lead, security, and physician notified. Cigarettes and potato chip fryer apprehended and locked in pyxis. Patient educated on smoking with oxygen and hospital rules on smoking. No patient in adjoining room.
--- NOTE | 2021-09-16 03:54 | PC.NURSE ---
Pt. is adamant that he is leaving against medical advice. I personally have thoroughly educated patient on risks associated with leaving the hospital at this time. Charge nurse Jillian has thoroughly educated patient on risks of leaving. Dr. Mick roberts and road gang supervisor Vianca roberts.
--- NOTE | 2021-09-16 04:15 | PC.NURSE ---
Charge nurse Jillian has convinced patient to stay at this time. Will continue to treat.
--- NOTE | 2021-09-16 04:30 | PC.NURSE ---
Educated patient twice on leaving AMA. Patient is concerned about his at home and having cancer. I have talked the patient into waiting to see the hospitalist this morning. Patient hooked back up to monitoring. BP 129/64 RA 98% HR 93 SR.
--- NOTE | 2021-09-16 04:45 | PC.NURSE ---
Pt. is now adamant again that he is leaving. I have now contacted Jannette his sister. She states she will be coming to see him as soon as he can.
--- NOTE | 2021-09-16 04:55 | PC.NURSE ---
Pt. is now again refusing to keep his monitor on him including tele wires, spo2, bp cuff.
[2021-09-16 05:33] LABS: Basophils % 0.2 %; Hematocrit 35.7 % (42.0-52.0); Hemoglobin 11.7 g/dL (11.7-16.6); Lymphocytes # 0.3 10^3/uL (0.8-4.8); Lymphocytes % 4.9 %; Mean Corpuscular HGB Conc 32.8 g/dL (30.0-36.0); Mean Corpuscular Hemoglobin 27.6 pg (28.0-34.0); Mean Corpuscular Volume 84.2 fl (80-94); Mean Platelet Volume 12.6 fL (7.4-10.4); Monocytes # 0.4 10^3/uL (0.2-0.9); Monocytes % 7.6 %; Neutrophils # 4.43 10^3/uL (1.8-7.7); Neutrophils % 86.5 %; Nucleated Red Blood Cells % 0 %; Platelet Count 88 10^3/cmm (130-400); Red Blood Count 4.24 10^6/uL (4.1-5.3); Red Cell Distribution Width 15.2 % (12.1-15.1); White Blood Count 5.1 10^3/uL (4.0-10.0)
--- NOTE | 2021-09-16 05:49 | PC.NURSE ---
Pt. is sitting on side of bed with fingers down his throat attempting to make himself throw up. Told him to stop
[2021-09-16 05:50] LABS: Anion Gap 15.7 (5-19); Blood Urea Nitrogen 9 mg/dL (8-23); Carbon Dioxide 21 mmol/L (22-29); Chloride 108 mmol/L (98-107); Potassium 3.7 mmol/L (3.5-5.1); Sodium 141 mmol/L (136-145)
[2021-09-16 05:51] LABS: Calcium 8.8 mg/dL (8.5-10.5); Glucose 123 mg/dL (65-115); Magnesium 1.8 mg/dL (1.7-2.3); Osmolality Calculated 292 mOsm/kg (285-295)
--- NOTE | 2021-09-16 07:01 | PC.NURSE ---
During report pt came out of room, pt reminded that he is on isolation and needs to return to his room. Pt became agitated and began cussing at staff. Pt escorted back to room. Pt seated on bed and then repositioned to laying position with covers placed on him. Will monitor
[2021-09-16] MEDS: doxycycline 100 mg Tablet PO ×2 (08:03→17:39)
[2021-09-16] MEDS: pantoprazole DR 40 mg Tablet PO (08:03)
[2021-09-16] MEDS: aspirin 81 mg EC Tablet PO (08:03)
[2021-09-16] MEDS: dilTIAZem ER (24HR) 120 mg Capsule PO (08:03)
[2021-09-16] MEDS: CLONazepam 1 mg Tablet PO (08:03)
[2021-09-16] MEDS: metoprolol tartrate 25 mg Tablet PO ×2 (08:06→21:04)
--- NOTE | 2021-09-16 09:26 | CT_ITS ---
WS: [id number] CT CERVICAL SPINE HISTORY: fall TECHNIQUE: Contiguous 2.5 mm axial imaging performed through the entire cervical spine. Sagittal and coronal reformats also performed. All CT scans at [facility] use at least one of these dose o ptimization techniques: automated exposure control; mA and/or kV adjustment per patient size (include s targeted exams where dose is matched to clinical indication); or iterative reconstruction. DLP: 478.13 mGy.cm COMPARISON: 10/05/2020 Posterior cervical alignment is unchanged. Slight increase in the cervical lordosis. There is a large bridging osteophyte extending posterior between C3 and C4 encroaching upon the ventral thecal sac. T here is significant encroachment upon the RIGHT lateral cervical cord extending into the foramen caus ing severe RIGHT foraminal stenosis and mild cord compression at C3-4. Similar to the prior study. Patient has a known remote fracture involving the LEFT C7 vertebral body, pedicle and lamina which is still visualized but nearly completely healed. No displacement as compared to 10/05/2020. There is al so a lucency involving an osteophyte from the anterior inferior C5 vertebral body which is similar to the prior study. No acute fracture through the osteophyte. C2-C3: Facet joint arthritis. No high-grade stenosis. C3-C4: Osteophytic ridging with very large RIGHT paracentral and foraminal osteophyte. Severe RIGHT f oraminal stenosis. C4-C5: Moderate to severe RIGHT foraminal stenosis. C5-C6: Bilateral foraminal stenosis is at least moderate. C6-C7: Moderate to severe bilateral foraminal stenosis. C7-T1: Mild bilateral foraminal stenosis. Calcification in the carotid artery bifurcation. Dense consolidation increased soft tissue with the L EFT lung apex. Patient has a known neoplastic process at the LEFT apex. CT/CT cervical spin wo con* [id number] IMPRESSION: 1. No acute cervical spine fracture. 2. Prior fractures involving the LEFT C7 vertebral body and posterior elements . Fracture is still identified but there is partial healing. No displacement. 3. Multilevel foraminal stenosis. Larger osteophyte with partial compression u bennie the cervical cord at C3-4. No change. 4. 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
--- NOTE | 2021-09-16 09:26 | CT_ITS ---
WS: [id number] CT HEAD NONCONTRAST HISTORY: fall TECHNIQUE: Contiguous axial imaging performed through the brain in 2.5 mm imaging. Bone and soft tiss ue windows. Sagittal and coronal reformats reviewed. All CT scans at [facility] use at least one of these dose optimization techniques: automated exposure control; mA and/or kV adjustment per pa tient size (includes targeted exams where dose is matched to clinical indication); or iterative recon struction. DLP: 617.69 mGy.cm COMPARISON: None available. No acute intracranial hemorrhage, midline shift or mass effect. Mild cerebral and cerebellar atrophy and mild small vessel ischemic disease. Small vessel ischemic d isease in the basal ganglia. Ventricles: Normal size with no hydrocephalus. No inferior displacement of cerebellar tonsils. Paranasal sinuses: As visualized are clear. Mastoid air cells: Well pneumatized. Calvarium and scalp: No skull fracture. There is a small amount of soft tissue edema just LEFT of the midline over the frontal bone. CT/CT head wo con* [id number] IMPRESSION: 1. No acute intracranial hemorrhage or edema. 2. Mild atrophy and small vessel ischemic disease. 3. Mild soft tissue hematoma centered just to the LEFT of midline over the fro ntal bone.
--- NOTE | 2021-09-16 09:27 | XR_ITS ---
WS: [id number] XR hip BI 2V wo/w pel [id number] REASON FOR EXAM: fall FINDINGS: RIGHT HIP: No fracture or focal bone lesion. Superior and inferior pubic rami are intact. Severe narrowing of the joint space with severe subchondral sclerosis and cystic change in the acetab ulum femoral head. There is protrusion of the femoral head into the acetabulum. LEFT HIP: No fracture or focal bone lesion. Superior and inferior pubic rami are intact. There is total left hip arthroplasty. There is ostial lysis and loosening of the femoral component wi th a gap between the femur and horizontal femoral post. These findings have been noted previously on an examination of 05/24/2016 but have progressed somewhat.
--- NOTE | 2021-09-16 09:49 | PC.NURSE ---
Approximately 0920, heard loud noise from pt room, this nurse entered room to find pt lying on floor half in and half out of bathroom on R side. Liquid BM noted on floor in bathroom. Pt AAOx4, answers all questions appropriately. Pt c/o R hip pain, R side head pain with laceration noted, and R elbow skin tear noted. MD notified and family of fall. Md to bedside to assess pt, pt remains lying in floor. House super and ICU director at bedside to assist with safe pt handling techniques to assist pt transfer into bed with hover missy/mat. Stat xr's/CT ordered. XR's taken at bedside. Sitter to bedside for pt safety.
--- NOTE | 2021-09-16 10:25 | P.PN_ITS ---
Subjective Subjective: Miguel fell this morning. He apparently wanted to go AGAINST MEDICAL ADVICE last night. He had some vomiting yesterday afternoon. I discussed all concerns with his , who reports he often gets agitated at home as well. This usually occurs when he is feeling better. Currently he reports a little bit of hip pain. He had had some headache but reports it is better. No shortness of breath. Some abdominal cramping. No syncope/loss of consciousness Medications: Reviewed: Yes Vitals/I&O/Wt Last Vital Signs Temp 98.0 F 09/16/21 08:45 Pulse 98 09/16/21 08:50 Resp 18 09/16/21 08:50 BP 132/68 09/16/21 08:45 Pulse Ox 96 09/16/21 08:50 09/15/21 09/16/21 09/16/21 22:59 06:59 14:59 Intake Total 240 / 890 60 / 60 Output Total 275 / 645 Balance -35 / 245 60 / 60 Physical Exam Narrative: General exam no distress, alert and conversive Neuro no obvious focal deficits Cardiovascular regular rate and rhythm, occasional premature beat Lungs clear no wheezing or crackles Abdomen is soft. Positive bowel sounds. Extremities no cyanosis clubbing or edema Skin no rash. Small abrasion right adventist, right elbow Data : 09/16/21 04:47 09/16/21 04:47 A&P Assessment and plan (1) Atrial flutter with rapid ventricular response: Patient presents with atrial flutter with rapid ventricular rate in 160 bpm. Metoprolol at home with no past history of Afib. Metoprolol was admitted in the ED without success. Esmolol drip was initiated without success. Esmolol was changed to IV diltiazem drip. Patient responded to diltiazem drip with rate in 110-120. Patient has since converted to sinus rhythm With higher dose of metoprolol he became somewhat hypotensive. Currently on metoprolol 12.5 mg twice daily which she is tolerating Tolerating extended release diltiazem Not candidate for anticoagulation secondary to history of gastric varices as well as thrombocytopenia Aspirin 81 mg daily. Discontinue currently until x-rays from fall have returned No need for repeat echocardiogram. Has recent 1 in the chart. TSH and magnesium checked and normal. Status: Acute (2) Pneumonia: Evidence of postobstructive pneumonia on x-ray. He does not have a fever or w luz blood cell count. Secondary to his comorbidity of atrial flutter, and multiple other medical pr oblems Levaquin was initiated. Secondary to some neuro agitation and will be discontinued and changed to doxycycline. Sputum culture pending Status: Acute (3) COPD (chronic obstructive pulmonary disease): Patient has history of smoking with COPD. Patient reports needing 3 L NC at home. Patient reports having productive cough. He shows no evidence of a COPD exacerbation currently. Will maintain patient on oxygen as needed. Continue pulmonary toilet Encourage smoking abstinence Status: Acute (4) Thrombocytopenia: Thrombocytopenia noted, likely due to his splenomegaly. Also noted gastric varicies on previous imaging. Continue to monitor. Status: Acute (5) Anxiety: Patient has history of chronic anxiety/depression for which he takes clonazepam at home. Continue patient clonazepam inpatient. Status: Acute (6) C. difficile colitis: Present on admission. Patient complained of some diarrhea at home. Vancomycin p.o. has been initiated. Status: Acute Plan Fall, agitation. Discontinue Levaquin. Decrease morphine, Klonopin. Sitter arranged. CT head neck, x-ray pelvis arranged. Secondary to fall discontinue scopolamine, as needed Reglan Depression, psychiatry consulted Multiple other medical problems as listed in his past medical history. Continue many of this chronic home medication. SCDs for DVT prophylaxis. Hold Lovenox during evaluation of fall. Attestations Medical Necessity Statement*: Needs continued hospitalization for further treatment of C. difficile, addressing agitation/delirium, evaluation of fall. Coding Level of Care Code Acute Clinical Research Spec for Maria Luz Triplett Diagnoses Atrial flutter with rapid ventricular response I48.92 Pneumonia J18.9 COPD (chronic obstructive pulmonary disease) J44.9 Thrombocytopenia D69.6 Anxiety F41.9 C. difficile colitis A04.72
[2021-09-16] MEDS: ondansetron 2 mg/ML SDV 2 mL 4 MG IVP (10:33)
[2021-09-16 11:03] LABS: Ammonia 17 umol/L (16-60)
[2021-09-16] MEDS: haloperidol inj 5 mg/mL INJ 1 mL IVP (12:07)
[2021-09-16] MEDS: CLONazepam 0.5 mg Tablet PO ×2 (15:31→21:04)
--- NOTE | 2021-09-16 18:27 | PC.NURSE ---
Pt resting in bed. 1:1 sitter at bedside. Pt remains confused. Attempting to exit bed without assistance often. Assisted to BSC PRN. Loose stools several times today. VSS. Will monitor.
[2021-09-16] MEDS: morphine ER (12 HR) 30 mg tablet PO (21:02)
[2021-09-16] MEDS: morphine ER (12 HR) 15 mg Tablet PO (21:04)
[2021-09-17] VITALS (43 sets, daily range): BP systolic 83–120; BP diastolic 43–66; PULSE 69–88; RESP 0–31; TEMP 36.6; O2SAT 86–100
[2021-09-17 04:59] LABS: Basophils % 0.3 %; Eosinophils % 0.3 %; Hemoglobin 10.7 g/dL (11.7-16.6); Lymphocytes # 0.3 10^3/uL (0.8-4.8); Lymphocytes % 10.2 %; Mean Corpuscular HGB Conc 32.4 g/dL (30.0-36.0); Mean Corpuscular Hemoglobin 27.2 pg (28.0-34.0); Mean Corpuscular Volume 83.8 fl (80-94); Mean Platelet Volume 12.2 fL (7.4-10.4); Monocytes # 0.4 10^3/uL (0.2-0.9); Monocytes % 11.1 %; Neutrophils # 2.53 10^3/uL (1.8-7.7); Neutrophils % 77.8 %; Nucleated Red Blood Cells % 0 %; Platelet Count 87 10^3/cmm (130-400); Red Blood Count 3.94 10^6/uL (4.1-5.3); Red Cell Distribution Width 15.2 % (12.1-15.1); White Blood Count 3.3 10^3/uL (4.0-10.0)
[2021-09-17 05:26] LABS: Alanine Aminotransferase 15 U/L (0-41); Albumin Level 3.1 g/dL (3.5-5.2); Alkaline Phosphatase 182 IU/L (40-130); Anion Gap 12.9 (5-19); Aspartate Amino Transferase 16 U/L (0-40); Blood Urea Nitrogen 13 mg/dL (8-23); Calcium 8.8 mg/dL (8.5-10.5); Carbon Dioxide 23 mmol/L (22-29); Chloride 109 mmol/L (98-107); Globulin 3.2 g/dL (1.3-4.6); Glucose 95 mg/dL (65-115); Osmolality Calculated 292 mOsm/kg (285-295); Potassium 3.9 mmol/L (3.5-5.1); Sodium 141 mmol/L (136-145); Total Bilirubin 0.3 mg/dL (0.15-1.2); Total Protein 6.3 g/dL (6.6-8.7)
[2021-09-17] MEDS: CLONazepam 0.5 mg Tablet PO ×2 (07:59→14:33)
[2021-09-17] MEDS: pantoprazole DR 40 mg Tablet PO (07:59)
[2021-09-17] MEDS: metoprolol tartrate 25 mg Tablet PO (07:59)
[2021-09-17] MEDS: dilTIAZem ER (24HR) 120 mg Capsule PO (07:59)
[2021-09-17] MEDS: doxycycline 100 mg Tablet PO (07:59)
[2021-09-17] MEDS: morphine ER (12 HR) 30 mg tablet PO (08:53)
[2021-09-17] MEDS: morphine ER (12 HR) 15 mg Tablet PO (08:53)
--- NOTE | 2021-09-17 10:22 | PC.CHAP ---
Pastoral Care Encounter/Spiritual Assessment Type of Contact [] Declined automatic drill operator visit [] Patient/Family/Request visit [] Outpatient visit [] Follow-up visit [] Physician referral [] Code/Alert [x] Routine visit [] Staff referral [] Actively dying [] Patient sleeping [] Family support [] [] Out of room [] Palliative care [] [] Receiving care in room [] Pre-surgical visit [] Trauma [] Long length of stay [x] ICU visit [x] Other: sitter Relational/Emotional Strength [] Patient feels connected with others/family/visitors/staff [] Distress [] Loneliness/isolation [] Abandonment Spirituality of Patient [] Person of Ana [] Attends Cheondoism of their Ana [] Believes in Prayer [] Reads Bible or Voodoo materials [] There are Spiritual issues to be addressed Senior Technical Business Analyst Interventions [x] Prayer [x] Active listening [x] Non-anxious presence [x] Spiritual/emotional support [] Crisis/trauma care [] Spiritual counseling [] Bereavement support [] Provided bereavement packet [] Provided Bible/devotional materials [] Provided toy/stuffed animal, coloring book to patient or family member [] Provided Communion [] Anointing/Bryant [] Salvation [x] Completed spiritual assessment [] Other: Impact on Illness or Injury [] Angry [] Fearful [] Anxious [] Often cries [] Exhaustion [] Unable to work [] Unable to attend islam [] Unable to walk/stand [] Unable to read [] Unable to drive [] Unable to eat/drink [] Unable to sleep [] Unable to be with family [] Patient intubated [] Other: Summary patient ate breakfast... still on oxygen but ready for therapy Time spent with patient 10 min
--- NOTE | 2021-09-17 12:52 | PM.DCS ---
Discharge Providers Date of Admission: 09/14/21 10:12 Date of Discharge: September 17, 2021 Attending Provider at Admission: Michael Self MD Attending Provider at Discharge: Michael Self MD Diagnoses at Discharge Discharge Diagnosis (1) Atrial flutter with rapid ventricular response: Status: Acute (2) Pneumonia: Status: Acute (3) COPD (chronic obstructive pulmonary disease): Status: Acute (4) Thrombocytopenia: Status: Acute (5) Anxiety: Status: Acute (6) C. difficile colitis: Status: Acute Reason for Visit Reason for Visit: SOB Hospital Course Hospital Course Miguel presented to the hospital week, with diarrhea, and short of breath with any exertion. He was found to be in atrial flutter with rapid ventricular response. Diarrhea was noted in the hospital and C. difficile was performed, which was positive. While in the hospital he was initially put on esmolol for atrial flutter, which failed. He was put on Cardizem with good response. He eventually converted spontaneously. His home metoprolol dose was continued. Diltiazem [id number] daily was added for rate control should he go back into atrial fibrillation. Anticoagulation was discussed, but this was not recommended secondary to his low platelets, and history of gastro splenic varices. He will go on a baby aspirin daily. C. difficile was treated with oral vancomycin, and by the end of his hospital course he had significant reduction in bowel movements. There was some concern of postobstructive pneumonia, and Levaquin was initially given on admission but this was changed to doxycycline secondary to C. difficile and continued diarrhea. He had some agitation during his hospital course, and this corrected by the end of his hospital course. His narcotic was reduced during his hospital stay, and this may have helped. He had recently been increased to 60 mg twice daily of morphine 2 weeks prior to hospitalization. He did fall once during his hospital stay, and sustained a small abrasion to his head and right elbow. X-rays did not demonstrate any fracture or intracranial hemorrhage. He will follow-up with hematology oncology secondary to his lung cancer, keep regular follow-up with his psychiatric services, follow-up with primary care provider 3 to 5 days with CBC and BMP at that time. Physical Exam Narrative: General exam no distress Neck is supple Cardiovascular regular rate and rhythm without murmur Lungs clear Abdomen is soft, positive bowel sounds Extremities no cyanosis clubbing or edema Discharge Data Studies Completed and Pending Completed Studies During Hospitalization Category Date Time Status CT cervical spin wo con* [id number] Stat Cat Scan 09/16/21 09:[address] head wo con* [id number] Stat Cat Scan 09/16/21 09:26 Completed XR abdomen 1V* [id number] Stat Exams 09/15/21 23:32 Completed XR chest 1V portable [id number] Stat Exams 09/14/21 08:54 Completed XR hip BI 3-4V wo/w pel [id number] Routine Exams 09/16/21 Completed Pending at discharge Category Date Time Status Sputum Culture and Gram Stain Routine Lab 09/14/21 12:04 Uncollected Radiology Impressions Chest X-Ray 09/14/21 08:54 IMPRESSION: Relatively stable abnormal chest. It would however be difficult to identify active tumor or inflammatory disease in the left upper lung and apex region Abdomen X-Ray 09/15/21 23:32 IMPRESSION: No acute findings. Cervical Spine CT 09/16/21 09:26 IMPRESSION: 1. No acute cervical spine fracture. 2. Prior fractures involving the LEFT C7 vertebral body and posterior elements. Fracture is still identified but there is partial healing. No displacement. 3. Multilevel foraminal stenosis. Larger osteophyte with partial compression upon the cervical cord at C3-4. No change. 4. 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 Head CT 09/16/21 09:26 IMPRESSION: 1. No acute intracranial hemorrhage or edema. 2. Mild atrophy and small vessel ischemic disease. 3. Mild soft tissue hematoma centered just to the LEFT of midline over the frontal bone. Hip/Pelvis X-Ray 09/16/21 09:27 IMPRESSION: Severe osteoarthritis of the right hip with no acute abnormality. Total left hip arthroplasty with loosening and ostial lysis as above. No acute abnormality. Laboratory Results WBC 3.3 10^3/uL (4.0-10.0) L 09/17/21 04:20 RBC 3.94 10^6/uL (4.1-5.3) L 09/17/21 04:20 Hgb 10.7 g/dL (11.7-16.6) L 09/17/21 04:20 Hct 33.0 % (42.0-52.0) L 09/17/21 04:20 MCV 83.8 fl (80-94) 09/17/21 04:20 MCH 27.2 pg (28.0-34.0) L 09/17/21 04:20 MCHC 32.4 g/dL (30.0-36.0) 09/17/21 04:20 RDW 15.2 % (12.1-15.1) H 09/17/21 04:20 Plt Count 87 10^3/cmm (130-400) L 09/17/21 04:20 MPV 12.2 fL (7.4-10.4) H 09/17/21 04:20 Neut % (Auto) 77.8 % 09/17/21 04:20 Lymph % (Auto) 10.2 % 09/17/21 04:20 [place] % (Auto) 11.1 % 09/17/21 04:20 Eos % (Auto) 0.3 % 09/17/21 04:20 Baso % (Auto) 0.3 % 09/17/21 04:20 Neut # (Auto) 2.53 10^3/uL (1.8-7.7) 09/17/21 04:20 Lymph # (Auto) 0.3 10^3/uL (0.8-4.8) L 09/17/21 04:20 [place] # (Auto) 0.4 10^3/uL (0.2-0.9) 09/17/21 04:20 Eos # (Auto) 0.0 10^3/uL (0.0-0.8) 09/17/21 04:20 Baso # (Auto) 0.0 10^3/uL (0.0-0.1) 09/17/21 04:20 Nucleated RBC % (auto) 0 % 09/17/21 04:20 Nucleated RBCs # 0.0 /100WBC 09/17/21 04:20 PT 13.70 SECONDS (12.1-14.9) 09/14/21 09:00 INR 1.02 (0.8-1.2) 09/14/21 09:00 APTT 32.6 SECONDS (23.9-36.7) 09/14/21 09:00 Specimen Type Arterial 09/14/21 08:58 Sample Site Brachial, right 09/14/21 08:58 ABG pH 7.45 (7.35-7.45) 09/14/21 08:58 ABG pCO2 32.6 mmHg (35-45) L 09/14/21 08:58 ABG pO2 103.0 mmHg (80.0-100.0) H 09/14/21 08:58 ABG HCO3 22.6 mmol/L (22-26) 09/14/21 08:58 ABG O2 Saturation 98.6 09/14/21 08:58 ABG Base Excess -0.8 mmol/L (-2.0-2.0) 09/14/21 08:58 Shad Test N/a 09/14/21 08:58 A-a O2 Gradient 11.1 mmHg (5-10) H 09/14/21 08:58 Hematocrit 39.8 % (42-52) L 09/14/21 08:58 Hgb O2 Saturation 96.8 % (95-100) 09/14/21 08:58 Carboxyhemoglobin 1.0 %THgb (0.4-20.1) 09/14/21 08:58 Methemoglobin 0.9 % (0.4-1.5) 09/14/21 08:58 Total Hemoglobin 13.0 g/dL (14-18) L 09/14/21 08:58 Sodium 140.0 mmol/L (131-143) 09/14/21 08:58 Potassium 4.0 mmol/L (3.5-5.0) 09/14/21 08:58 Glucose 110.0 mg/dL (70-115) 09/14/21 08:58 Ionized Calcium 1.2 mmol/L (1.1-1.4) 09/14/21 08:58 O2 Delivery Device Nc 09/14/21 08:58 O2 Liters/Min 3.0 % 09/14/21 08:58 FiO2 32.0 % 09/14/21 08:58 Application Support Administrator ID Amh 09/14/21 08:58 Sodium 141 mmol/L (136-145) 09/17/21 04:20 Potassium 3.9 mmol/L (3.5-5.1) 09/17/21 04:20 Chloride 109 mmol/L (98-107) H 09/17/21 04:20 Carbon Dioxide 23 mmol/L (22-29) 09/17/21 04:20 Anion Gap 12.9 (5-19) 09/17/21 04:20 BUN 13 mg/dL (8-23) 09/17/21 04:20 Creatinine 0.7 mg/dL (0.7-1.2) 09/17/21 04:20 GFR Calculation Not Reportable 09/17/21 04:20 Glucose 95 mg/dL (65-115) 09/17/21 04:20 Calculated Osmolality 292 mOsm/kg (285-295) 09/17/21 04:20 Calcium 8.8 mg/dL (8.5-10.5) 09/17/21 04:20 Magnesium 1.8 mg/dL (1.7-2.3) 09/16/21 04:47 Total Bilirubin 0.3 mg/dL (0.15-1.2) 09/17/21 04:20 AST 16 U/L (0-40) 09/17/21 04:20 ALT 15 U/L (0-41) 09/17/21 04:20 Alkaline Phosphatase 182 IU/L (40-130) H 09/17/21 04:20 Ammonia 17 umol/L (16-60) 09/16/21 10:37 Creatine Kinase 28 U/L (39-308) L 09/14/21 09:00 Troponin T Baseline 11 ng/L (0-15) 09/14/21 09:00 Troponin T 120 Minute 12.01 ng/L (0-15) 09/14/21 10:46 Delta Troponin T 1.01 ABS# (0-10) 09/14/21 10:46 Troponin T Hi Sens 6Hr 11.33 ng/L (0-15) 09/14/21 14:55 Troponin T Hi Sens 6Hr Delta 0.33 ng/L (0-12) 09/14/21 14:55 Total Protein 6.3 g/dL (6.6-8.7) L 09/17/21 04:20 Albumin 3.1 g/dL (3.5-5.2) L 09/17/21 04:20 Globulin 3.2 g/dL (1.3-4.6) 09/17/21 04:20 TSH 0.90 uIU/mL (0.27-4.20) 09/14/21 09:00 Urine Color [place] (Yellow) 09/15/21 07:00 Urine Appearance Clear (CLEAR) 09/15/21 07:00 Urine pH 6.5 (5-7) 09/15/21 07:00 Ur Specific [place] 1.015 (1.005-1.030) 09/15/21 07:00 Urine Protein Neg (Negative) 09/15/21 07:00 Urine Glucose (UA) Norm (Normal) 09/15/21 07:00 Urine Ketones Negative (Negative) 09/15/21 07:00 Urine Blood Neg (Negative) 09/15/21 07:00 Urine Nitrate Negative (Negative) 09/15/21 07:00 Urine Bilirubin Neg (Negative) 09/15/21 07:00 Urine Urobilinogen 8 mg/dL (Negative) H 09/15/21 07:00 Ur Leukocyte Esterase Negative (Negative) 09/15/21 07:00 Vitals Last Vital Signs Temp 97.8 F 09/17/21 08:00 Pulse 70 09/17/21 08:20 Resp 16 09/17/21 08:20 BP 115/57 09/17/21 08:00 Pulse Ox 93 09/17/21 08:20 Discharge Plan Discharge Patient Disposition: Home Health Service Condition: Stable Prescriptions: New doxycycline monohydrate 100 mg Tablet 100 mg PO BID Qty: 10 0RF vancomycin 1,000 mg Recon Soln 125 mg PO Q6H Qty: 40 0RF diltiazem HCl 120 mg Capsule,Extended Release 24hr 120 mg PO DAILY Qty: 30 0RF Adult Low Dose Aspirin 81 mg tablet,delayed release (DR/EC) 81 mg PO DAILY Qty: 30 0RF Continued morphine 30 mg tablet extended release 60 mg PO Q12H 30 Days Qty: 120 0RF Trelegy Ellipta 100-62.5-25 mcg blister with device 1 inh inhalation DAILY Qty: 60 3RF oxycodone-acetaminophen [Percocet] 5-325 mg tablet 1 - 2 tab PO .q4-6h PRN (Reason: pain) 30 Days Qty: 60 0RF clonazepam [Klonopin] 1 mg tablet 1 mg PO TID Qty: 90 3RF ondansetron HCl 8 mg tablet 8 mg PO .q8hr PRN (Reason: nausea and vomiting) Qty: 30 1RF omeprazole 40 mg capsule,delayed release(DR/EC) 40 mg PO DAILY 0RF albuterol sulfate [Ventolin HFA] 90 mcg/actuation HFA aerosol inhaler 1 - 2 puff inhalation Q4H PRN (Reason: Shortness Of Breath) 0RF metoprolol tartrate 25 mg Tablet 25 mg PO BID@0900,2100 Qty: 180 0RF Discontinued diphenoxylate-atropine [Lomotil] 2.5-0.025 mg tablet 1 tab PO BID PRN (Reason: diarrhea) Qty: 14 1RF diphenhydramine HCl [Benadryl Allergy] 25 mg Tablet 25 mg PO EVERY OTHER DAY 0RF Discharge Orders: Discharge Order (Routine); Ordered 09/17/21 Ordered By: Michael Self Referrals: [facility] [Outside] ([facility] notified of patients discharged to home. ) Olivia Barrera MD [Staff Physician] - (will need to call for this follow up /post hospital discharge .please call or have home health cordinate . ) Nicholas Bergman MD [Physician] - (please call this office [phone] for after discharge from hospital ,for appointment . lab work to be done by home health to report .) Discharge Diet: Regular Discharge Activity: Increase activity as tolerated Patient Instructions: Clostridium Difficile, Atrial Flutter (DC), A-fib (Atrial Fibrillation) (DC), How to Stop Smoking (DC), Fall Prevention for Older Adults (DC), COPD (Chronic Obstructive Pulmonary Disease) (DC), Community Acquired Pneumonia (DC), Contact Precautions (DC), COPD Stoplight, Opioid Safety Activity Restrictions/Additional Instructions: Follow-up with hematology oncology next week Follow-up with primary care provider 3 to 5 days CBC, BMP on follow-up Extended release morphine, should decrease to 30 mg twice daily on discharge. He had been taking 60 mg twice daily at home. Discharge Attestations Time Spent in Discharge Care*: greater than 30 min Quality Metrics Clinical Quality Measures [ No reported AMI, CVA or VTE this stay] Coding Level of Care Code Acute Chg FW DC note Diagnoses Atrial flutter with rapid ventricular response I48.92 Pneumonia J18.9 COPD (chronic obstructive pulmonary disease) J44.9 Thrombocytopenia D69.6 Anxiety F41.9 C. difficile colitis A04.72
--- NOTE | 2021-09-17 13:09 | PC.SOCIAL ---
IMM Update pg 2 of IMM updated and reviewed w/ patient. Copy provided and Copy placed in chart.
--- NOTE | 2021-09-17 16:08 | PC.NURSE ---
1600 Port deaccessed and dressing applied. DC instructions given, meds delivered to bed and instructions given. Pt verbalizes understanding. Pt dressed and wheeled to waiting private vehicle. Tolerated well.
== END 2021-09-17 16:01 | disposition home health service (06) | DRG 308 ==
LOC: ER 09:19 → ICU 10:37
PROVIDERS: Admitting Provider Internal Medicine; Emergency Provider Family Medicine; Visit Provider Internal Medicine
DX: I48.92 Unspecified atrial flutter (principal); J18.9 Pneumonia, unspecified organism; C34.92 Malignant neoplasm of unspecified part of left bronchus or lung; J44.0 Chronic obstructive pulmonary disease with (acute) lower respiratory infection; A04.72 Enterocolitis due to Clostridium difficile, not specified as recurrent; Z99.3 Dependence on wheelchair; F41.8 Other specified anxiety disorders; Z99.81 Dependence on supplemental oxygen; G89.29 Other chronic pain; M54.50 Low back pain, unspecified; K21.9 Gastro-esophageal reflux disease without esophagitis; I10 Essential (primary) hypertension; Z79.891 Long term (current) use of opiate analgesic; F43.12 Post-traumatic stress disorder, chronic; F17.210 Nicotine dependence, cigarettes, uncomplicated; D69.59 Other secondary thrombocytopenia; Z90.81 Acquired absence of spleen; Z79.899 Other long term (current) drug therapy; Z79.51 Long term (current) use of inhaled steroids
CPT/HCPCS: 36415; 36591; 36600; 70450; 71045; 72125; 73521; 73522; 74018; 74176; 80048; 80051; 80053; 80061; 81001; 81003; 82140; 82330; 82550; 82805; 83036; 83540; 83550; 83605; 83690; 83735; 84100; 84145; 84443; 84484; 85025; 85384; 85610; 85730; 86140; 86403; 87040; 87086; 87493; 93005; 94640; 94664; 96365; 96366; 96372; 96374; 96375; 97110; 97116; 97162; 97530; 99285; 99291; 99292; J1442; J1630; J1650; J2270; J2405; J2765; J3370; J3475; J3490; J7030; J7040; J7626; S0030

== ENCOUNTER 2021-09-19 01:52 | Inpatient (IN) | payer MEDICARE, MEDICAID, SELFPAY ==
[2021-09-19] VITALS (19 sets, daily range): BP systolic 92–133; BP diastolic 48–68; PULSE 58–93; RESP 14–24; TEMP 36.3–36.7; O2SAT 90–100; BMI 16.9
--- NOTE | 2021-09-19 02:40 | CTR_ITS ---
PROCEDURE INFORMATION: Exam: CT Abdomen And Pelvis Without Contrast Exam date and time: 09/19/2021 3:35 AM Age: 70 years old Clinical indication: Abdominal pain; Generalized; Additional info: Abd pain, diarrhea TECHNIQUE: Imaging protocol: Computed tomography of the abdomen and pelvis without contrast. Radiation optimization: All CT scans at this facility use at least one of these dose optimization techniques: automated exposure control; mA and/or kV adjustment per patient size (includes targeted exams where dose is matched to clinical indication); or iterative reconstruction. COMPARISON: CT angio chest w abd pel w con 07/14/2021 1:20 PM RADIATION DOSE METRICS: Total DLP (mGy-cm): 1021.48 FINDINGS: Liver: Normal. No mass. Gallbladder and bile ducts: Cholecystectomy. Pancreas: Normal. No ductal dilation. Spleen: Splenomegaly. Adrenal glands: Normal. No mass. Kidneys and ureters: Right renal cyst. No hydronephrosis. Stomach and bowel: Unremarkable. No obstruction. No mucosal thickening. Appendix: No evidence of appendicitis. Intraperitoneal space: Unremarkable. No free air. No significant fluid collection. Vasculature: Aorto bi-iliac stent is in place. Lymph nodes: Unremarkable. No enlarged lymph nodes. Urinary bladder: Unremarkable as visualized. Reproductive: Unremarkable as visualized. Bones/joints: Left total hip arthroplasty. Osteopenia. Soft tissues: Unremarkable. CT/CT abdomen pelvis wo con [id number] IMPRESSION: No acute findings. COMMENTS: Consistent with the [employer]'s Incidental Findings Committee white paper (J Am Wendy Radiol 2018): Any incidental renal lesion less than 1 cm or classified as too small to characterize, or any incidental cystic renal lesion characterized as simple-appearing, is likely benign. No follow-up imaging is recommended for these lesions per consensus recommendations based on imaging criteria.
[2021-09-19 02:47] LABS: Basophils % 0.3 %; Hemoglobin 13.6 g/dL (11.7-16.6); Lymphocytes # 0.5 10^3/uL (0.8-4.8); Lymphocytes % 13.4 %; Mean Corpuscular HGB Conc 32.4 g/dL (30.0-36.0); Mean Corpuscular Volume 83.3 fl (80-94); Mean Platelet Volume 11.8 fL (7.4-10.4); Monocytes # 0.6 10^3/uL (0.2-0.9); Monocytes % 17.4 %; Neutrophils % 68.3 %; Nucleated Red Blood Cells % 0 %; Platelet Count 97 10^3/cmm (130-400); Red Blood Count 5.04 10^6/uL (4.1-5.3); Red Cell Distribution Width 15.4 % (12.1-15.1); White Blood Count 3.5 10^3/uL (4.0-10.0)
--- NOTE | 2021-09-19 02:50 | W.ED.GENADLT ---
HPI - General Adult General: Chief complaint: General Medical Stated complaint: diarrhea cdiff Time Seen by Provider: 09/19/21 01:56 Source: patient History of Present Illness: 70-year-old male who went home yesterday from the hospital. He had been hospitalized for C. difficile colitis and shortness of breath. He went home with home health services, but not had been available. Patient reports that his diarrhea was coming so often that they have gone through all of her bed sheets. He is incredibly weak, and cannot make it to a bedside or to the bathroom. His who is somewhat feeble herself, cannot take care of him. He denies any fever. He reports increased belly pain, periumbilical. No blood in the stool. Onset (ago): hour(s) Location: abdomen Radiation: non-radiation Severity: moderate Quality: aching Pain Consistency: constant Relieving factors: none Exacerbating factors: none Associated symptoms: Reports decreased appetite, dyspnea, nausea and weakness; Deny chest pain, cough, fevers/chills, headache(s), short of breath or vomiting Review of Systems Const: Denies: fever(s) Card: Denies: chest pain Resp: Reports: dyspnea GI: Reports: abdominal pain and nausea; Denies: vomiting : Denies: flank pain Neuro: Denies: headache(s) PFS ED PFSH: Medical History (Updated 09/20/21 @ 16:01 by Donnie Joyner DO) Anxiety Atrial flutter with rapid ventricular response Cancer cachexia Cancer of left lung Non-small cell lung cancer, stage IIIc Cancer related pain Cholecystectomy planned Chronic low back pain COPD (chronic obstructive pulmonary disease) Encounter for long-term use of opiate analgesic Gastric varices GERD (gastroesophageal reflux disease) Hip replacement planned Hypertension custodial (current) use of non-steroidal anti-inflammatories (nsaid) Major depressive disorder, recurrent, in full remission Neck Pain Non-small cell lung cancer Opioid contract exists Post-traumatic stress disorder, chronic Protein-energy malnutrition Psychiatric care Smoker Splenomegaly Thrombocytopenia Surgical History H/O skin graft History of hip surgery History of repair of aneurysm of abdominal aorta using endovascular stent graft History of shoulder surgery Family History Other CAD (coronary artery disease) Cancer Lung disease Social History Smoking and tobacco status: current some day smoker cigarettes Packs smoked per day: 1 Years cigarettes smoked: 40 [ Other cigarette details: less than 1ppd currently] Second hand smoke exposure: No Alcohol intake: never Marital status: History of recent travel: No Physical Exam Const: GENERAL APPEARANCE: cooperative, ill appearing, frail appearing, appears older than stated age and diaphoretic NUTRITIONAL APPEARANCE: cachectic HENMT: COMMON NORMALS: normocephalic, atraumatic and Normal external nose present HEAD & SCALP: normocephalic and atraumatic FACE & SINUS: normal facial exam and face symmetric NOSE: Normal external nose present and Normal nares present Eye: COMMON NORMALS: Equal, round and reactive pupils present and EOMs intact bilaterally PUPIL: Yes Equal, round and reactive pupils present Neck/C-Spine: GENERAL: Yes trachea midline Chest: CHEST: Yes Symmetrical chest wall rise Resp: COMMON NORMALS: normal respiratory effort, No retractions, No use of accessory muscles and clear to auscultation bilaterally AUSCULTATION: clear to auscultation bilaterally Cardio: COMMON NORMALS: regular rate and regular rhythm RATE: regular rate RHYTHM: regular rhythm GI: COMMON NORMALS: Soft to palpation PALPATION: Yes Soft to palpation, Yes Tenderness to palpation present (GI) (Periumbilical) and No Rigid due to palpation Extremity: COMMON NORMALS: no pedal edema Neuro: SHIV COMA SCALE: document GCS findings Irwin coma scale eye opening: Spontaneous Irwin coma scale verbal response: Orientated Shiv coma scale motor response: Obey commands Irwin coma scale total score: 15 Course Vital Signs: Vital signs: Vital Signs Temperature 97.3 F L 09/20/21 15:30 Pulse Rate 81 09/20/21 15:30 Respiratory Rate 17 09/20/21 15:30 Blood Pressure 109/53 09/20/21 11:41 Pulse Oximetry 94 09/20/21 15:30 [facility] - General Adult Medical Decision Making This patient is quite frail. He has had multiple episodes of diarrhea here. He has a very frail at home, who has been unable to care for him adequately. He is pancytopenic. Belly CT does not reveal significant colitis, however, he continues to have significant volumes of diarrhea. He'll require admission. 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 The patient had then previously admitted, and had wanted to leave multiple times against medical advice prior. This was briefly discussed with him, and he agrees to stay at this point. Lab Data : 09/20/21 03:55 09/20/21 03:55 Radiology Impressions Abdomen/Pelvis CT 09/19/21 02:40 IMPRESSION: No acute findings. COMMENTS: Consistent with the [employer]'s Incidental Findings Committee white paper (J Am Wendy Radiol 2018): Any incidental renal lesion less than 1 cm or classified as too small to characterize, or any incidental cystic renal lesion characterized as simple-appearing, is likely benign. No follow-up imaging is recommended for these lesions per consensus recommendations based on imaging criteria. Head CT 09/19/21 12:06 IMPRESSION: No acute intracranial abnormality. Laboratory Results WBC 3.5 10^3/uL (4.0-10.0) L 09/19/21 02:30 RBC 5.04 10^6/uL (4.1-5.3) 09/19/21 02:30 Hgb 13.6 g/dL (11.7-16.6) 09/19/21 02:30 Hct 42.0 % (42.0-52.0) 09/19/21 02:30 MCV 83.3 fl (80-94) 09/19/21 02:30 MCH 27.0 pg (28.0-34.0) L 09/19/21 02:30 MCHC 32.4 g/dL (30.0-36.0) 09/19/21 02:30 RDW 15.4 % (12.1-15.1) H 09/19/21 02:30 Plt Count 97 10^3/cmm (130-400) L 09/19/21 02:30 MPV 11.8 fL (7.4-10.4) H 09/19/21 02:30 Neut % (Auto) 68.3 % 09/19/21 02:30 Lymph % (Auto) 13.4 % 09/19/21 02:30 Crisp % (Auto) 17.4 % 09/19/21 02:30 Eos % (Auto) 0.0 % 09/19/21 02:30 Baso % (Auto) 0.3 % 09/19/21 02:30 Neut # (Auto) 2.40 10^3/uL (1.8-7.7) 09/19/21 02:30 Lymph # (Auto) 0.5 10^3/uL (0.8-4.8) L 09/19/21 02:30 Crisp # (Auto) 0.6 10^3/uL (0.2-0.9) 09/19/21 02:30 Eos # (Auto) 0.0 10^3/uL (0.0-0.8) 09/19/21 02:30 Baso # (Auto) 0.0 10^3/uL (0.0-0.1) 09/19/21 02:30 Nucleated RBC % (auto) 0 % 09/19/21 02:30 Nucleated RBCs # 0.0 /100WBC 09/19/21 02:30 Sodium 136 mmol/L (136-145) 09/19/21 02:30 Potassium 3.6 mmol/L (3.5-5.1) 09/19/21 02:30 Chloride 101 mmol/L (98-107) 09/19/21 02:30 Carbon Dioxide 22 mmol/L (22-29) 09/19/21 02:30 Anion Gap 16.6 (5-19) 09/19/21 02:30 BUN 17 mg/dL (8-23) 09/19/21 02:30 Creatinine 1.0 mg/dL (0.7-1.2) 09/19/21 02:30 GFR Calculation Not Reportable 09/19/21 02:30 Glucose 88 mg/dL (65-115) 09/19/21 02:30 Calculated Osmolality 283 mOsm/kg (285-295) L 09/19/21 02:30 Lactate 1.1 mmol/L (0.5-2.2) 09/19/21 03:00 Calcium 9.1 mg/dL (8.5-10.5) 09/19/21 02:30 Iron 26 ug/dL (59-158) L 09/19/21 02:30 TIBC 210 mcg/dl 09/19/21 02:30 % Saturation 12.3 % (20-50) L 09/19/21 02:30 Unsat Iron Binding 184 ug/dL (112-347) 09/19/21 02:30 Total Bilirubin 0.4 mg/dL (0.15-1.2) 09/19/21 02:30 AST 23 U/L (0-40) 09/19/21 02:30 ALT 19 U/L (0-41) 09/19/21 02:30 Alkaline Phosphatase 200 IU/L (40-130) H 09/19/21 02:30 C-Reactive Protein 38.7 mg/L (0.0-4.9) H 09/19/21 02:30 Total Protein 7.8 g/dL (6.6-8.7) 09/19/21 02:30 Albumin 3.9 g/dL (3.5-5.2) 09/19/21 02:30 Globulin 3.9 g/dL (1.3-4.6) 09/19/21 02:30 Lipase 27 U/L (13-60) 09/19/21 02:30 Procalcitonin 0.12 ng/mL (0-0.5) 09/19/21 02:30 Urine Color Yellow (Yellow) 09/19/21 03:06 Urine Appearance Clear (CLEAR) 09/19/21 03:06 Urine pH 5 (5-7) 09/19/21 03:06 Ur Specific Sparkman 1.030 (1.005-1.030) 09/19/21 03:06 Urine Protein Trace (Negative) 09/19/21 03:06 Urine Glucose (UA) Norm (Normal) 09/19/21 03:06 Urine Ketones Negative (Negative) 09/19/21 03:06 Urine Blood 2+ (Negative) H 09/19/21 03:06 Urine Nitrate Negative (Negative) 09/19/21 03:06 Urine Bilirubin Neg (Negative) 09/19/21 03:06 Urine Urobilinogen Norm mg/dL (Negative) 09/19/21 03:06 Ur Leukocyte Esterase Negative (Negative) 09/19/21 03:06 Urine RBC 5-10 /hpf (0-2) H 09/19/21 03:06 Urine WBC 0-4 /hpf (0-5) H 09/19/21 03:06 Ur Squamous Epith Cells 0-4 /hpf (0-5) H 09/19/21 03:06 Amorphous Sediment Not Reportable 09/19/21 03:06 Urine Bacteria Trace /hpf (NONE) 09/19/21 03:06 Urine Mucus 1+ /hpf 09/19/21 03:06 Discharge Plan Discharge Patient Disposition: Admitted As Inpatient Admit Provider: Asia Barton Clinical Impression: C. 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
[2021-09-19 02:56] LABS: Alanine Aminotransferase 19 U/L (0-41); Albumin Level 3.9 g/dL (3.5-5.2); Alkaline Phosphatase 200 IU/L (40-130); Anion Gap 16.6 (5-19); Aspartate Amino Transferase 23 U/L (0-40); Blood Urea Nitrogen 17 mg/dL (8-23); C Reactive Protein 38.7 mg/L (0.0-4.9); Calcium 9.1 mg/dL (8.5-10.5); Carbon Dioxide 22 mmol/L (22-29); Chloride 101 mmol/L (98-107); Globulin 3.9 g/dL (1.3-4.6); Glucose 88 mg/dL (65-115); Lipase 27 U/L (13-60); Osmolality Calculated 283 mOsm/kg (285-295); Potassium 3.6 mmol/L (3.5-5.1); Sodium 136 mmol/L (136-145); Total Bilirubin 0.4 mg/dL (0.15-1.2); Total Protein 7.8 g/dL (6.6-8.7)
[2021-09-19] MEDS: morphine 4 mg/mL SDV 1 mL 2 MG IVP (03:02)
[2021-09-19] MEDS: sodium chloride 0.9% 1,000 ML 999 ML IV (03:03)
[2021-09-19] MEDS: ondansetron 2 mg/ML SDV 2 mL 4 MG IVP (03:03)
[2021-09-19 03:22] LABS: Add Urine Microscopic? YES; Bilirubin Urine Neg (Negative); Blood Urine 2+ (Negative); Glucose Urine UA Norm (Normal); Ketones Urine Negative (Negative); Leukocyte Esterase Urine Negative (Negative); Nitrate Urine Negative (Negative); Protein Urine Trace (Negative); Urine Appearance Clear (CLEAR); Urine Color Yellow (Yellow); Urobilinogen Urine Norm (Negative); pH Urine 5 (5-7)
[2021-09-19 03:23] LABS: Add Urine Culture? No; Bacteria Urine TRACE /hpf; Mucus Urine 1+ /hpf; Squamous Epithelial Cell Urine 0-4 /hpf (0-5); WBC Urine 0-4 /hpf (0-5)
[2021-09-19 03:24] LABS: Lactate (Lactic Acid level) 1.1 mmol/L (0.5-2.2)
--- NOTE | 2021-09-19 07:27 | PC.NURSE ---
Bedside report completed with PAUL Beckwith.
[2021-09-19] MEDS: CLONazepam 1 mg Tablet PO (10:19)
--- NOTE | 2021-09-19 11:48 | P.HP_ITS ---
Providers/Chief Complaint Admitting Physician: Asia Barton MD Primary Care Provider: Nicholas Bergman MD Chief Complaint: diarrhea cdiff History of Present Illness Miguel Aguilar is a 70 year old male with past medical history of anxiety, atrial flutter, COPD, hypertension, depressive disorder who was recently discharged from the hospital on 09/17 when he was treated for C. difficile colitis, atrial fibrillation with rapid ventricular response and was sent home on oral vancomycin, oral Cardizem and metoprolol. His last hospitalization was complicated by him having episodes of agitation which were treated with decreasing his home narcotic pain medications along 1 episode of fall. Patient was sent back to the ER today by his because of continued episodes of diarrhea at home, continued weakness along with 1 episode of fall at home again. Patient states he is also been having dizziness on standing up. Denies any fever, difficulty in breathing. On examination he is feeling fairly anxious and states he has not taken his home dose of Klonopin till now. On examination his blood pressures were 115/60, heart rate of 80, afebrile and saturating well on room air. Review of Systems General: Reports: 10 or more systems reviewed and unremarkable except in HPI and below Const: Denies: fever(s), chills, body aches, change in appetite, change in weight, malaise, night sweats, diaphoresis, change in sleep pattern, daytime sleepiness or snoring Eyes: Denies: change in vision, blurry vision, photophobia, eye discomfort or eye discharge ENMT: Denies: throat pain, enlarged tonsils, hoarseness, mouth pain, oral sores, dry mouth, tinnitus, nasal congestion or post nasal drip Card: Denies: chest pain, palpitations, irregular heart rhythm, edema, swelling of feet/ankles, lightheadedness, syncope, pre-syncope, dyspnea on exertion, orthopnea, leg pain with exertion or acrocyanosis Resp: Denies: dyspnea, productive cough, non-productive cough, wheezing, stridor, pain on inspiration, change in phlegm color, hemoptysis or chest congestion GI: Denies: abdominal pain, nausea, vomiting, hematemesis, coffee ground emesis, dysphagia, heartburn, diarrhea, constipation, bloating, GI cramping, change in bowel habits, pain on defecation, hematochezia or melena : Denies: flank pain, difficulty urinating, dysuria, urinary frequency, urinary urgency, urinary hesitancy, urinary dribbling, difficulty starting urination, change in urine stream, nocturia or hematuria Musc: Denies: neck pain, back pain, extremity pain, joint pain, joint swelling, joint redness, joint stiffness or limited range of motion Neuro: Denies: headache(s), numbness in extremities, weakness in extremities, sensory changes, lack of coordination, difficulty walking, frequent falls, dizziness, vertigo, confusion, Slurred speech present, difficulty communicating thoughts or seizure-like activity Psych: Denies: anxiety, depression, mood swings, panic attacks, hopelessness or irritability Endo: Denies: polyuria, polydipsia, tired all the time, cold intolerance, excessive sweating, flushing or heat intolerance Jerrell/Lymph: Denies: easy bruising or easy bleeding All/Imm: Denies: tongue swelling, facial swelling or acute wheezing Medications/Allergies Home Medications Medication Instructions Recorded Confirmed Last Taken Type albuterol sulfate 90 mcg/actuation 1 - 2 puff INHALATION Q4H PRN 10/05/20 09/19/21 08/17/21 History aerosol inhaler (Ventolin HFA) omeprazole 40 mg capsule,delayed 40 mg PO DAILY 10/05/20 09/19/21 09/18/21 09:00 History release metoprolol tartrate 25 mg tablet 25 mg PO BID@0900,2100 #180 tab 07/15/21 09/19/21 09/18/21 21:00 Rx fluticasone fur. 100 mcg-umeclid 1 inh INHALATION DAILY #60 ea 07/19/21 09/19/21 09/18/21 09:00 Rx 62.5 mcg-vilant 25 mcg inhalat.powder (Trelegy Ellipta) oxycodone-acetaminophen 5 mg-325 1 - 2 tab PO .q4-6h PRN 30 Days 07/27/21 09/19/21 Unknown Rx mg tablet (Percocet) #60 tab morphine 30 mg tablet,extended 60 mg PO Q12H 30 Days #120 tab 08/19/21 09/19/21 09/18/21 Rx release clonazepam 1 mg tablet (Klonopin) 1 mg PO TID #90 tab 08/29/21 09/19/2109/18/22 Rx ondansetron HCl 8 mg tablet 8 mg PO .q8hr PRN #30 tab 09/08/21 09/19/21 Unknown Rx aspirin 81 mg tablet,delayed 81 mg PO DAILY #30 tab 09/17/21 09/19/21 09/18/21 09:00 Rx release (Adult Low Dose Aspirin) diltiazem HCl 120 mg 120 mg PO DAILY #30 cap 09/17/21 09/19/21 09/18/21 09:00 Rx capsule,extended release 24 hr doxycycline monohydrate 100 mg 100 mg PO BID #10 tab 09/17/21 09/19/21 09/18/21 21:00 Rx tablet vancomycin 1,000 mg intravenous 125 mg PO Q6H #40 ea 09/17/21 09/19/21 09/18/21 Rx injection Allergies Allergy/AdvReac Type Severity Reaction Status Date / Time prochlorperazine Allergy Unknown Unknown Verified 09/07/21 08:09 [From Compazine] pregabalin [From Lyrica] AdvReac Unknown NIGHTMARES Verified 09/07/21 08:09 trazodone AdvReac Unknown SHAKING Verified 09/07/21 08:09 PFSH Acute PFSH: Medical History (Updated 09/19/21 @ 12:03 by Domo Monsalve MD) Anxiety Atrial flutter with rapid ventricular response Cancer cachexia Cancer of left lung Non-small cell lung cancer, stage IIIc Cancer related pain Cholecystectomy planned Chronic low back pain COPD (chronic obstructive pulmonary disease) Encounter for long-term use of opiate analgesic Gastric varices GERD (gastroesophageal reflux disease) Hip replacement planned Hypertension residential (current) use of non-steroidal anti-inflammatories (nsaid) Major depressive disorder, recurrent, in full remission Neck Pain Non-small cell lung cancer Opioid contract exists Post-traumatic stress disorder, chronic Protein-energy malnutrition Psychiatric care Smoker Splenomegaly Thrombocytopenia Surgical History H/O skin graft History of hip surgery History of repair of aneurysm of abdominal aorta using endovascular stent graft History of shoulder surgery Family History Other CAD (coronary artery disease) Cancer Lung disease Social History Smoking and tobacco status: current some day smoker cigarettes Packs smoked per day: 1 Years cigarettes smoked: 40 [ Other cigarette details: less than 1ppd currently] Second hand smoke exposure: No Alcohol intake: never Marital status: History of recent travel: No Vitals/I&O/Wt Last Vital Signs Temp 97.5 F L 09/19/21 10:40 Pulse 82 09/19/21 10:40 Resp 17 09/19/21 06:56 BP 119/62 09/19/21 10:40 Pulse Ox 90 09/19/21 10:40 09/18/21 09/19/21 09/19/21 22:59 06:59 14:59 Intake Total 1000 / 1000 Output Total 200 / 200 Balance 1000 / 1000 -200 / -200 Weight last 48 hrs Weight 56.699 kg Physical Exam Narrative: General: No acute distress, AO x3, anxious, dehydrated, cachectic, chronically ill-appearing HEENT: PERRLA, pupils bilaterally equal and reactive Chest: Normal vesicular breath sounds, no added sounds, equal good air entry bilaterally CVS: S1-S2 regular, no murmurs, no tachycardia, no gallops, no rubs Abdomen: Soft, nontender, no organomegaly, bowel sounds present Neuro: No focal deficits, no facial deformity, AO x3, power 5/5 in all limbs Data : 09/19/21 02:30 09/19/21 02:30 Other Labs: Radiology Impressions Abdomen/Pelvis CT 09/19/21 02:40 IMPRESSION: No acute findings. COMMENTS: Consistent with the [employer]'s Incidental Findings Committee white paper (J Am Wendy Radiol 2018): Any incidental renal lesion less than 1 cm or classified as too small to characterize, or any incidental cystic renal lesion characterized as simple-appearing, is likely benign. No follow-up imaging is recommended for these lesions per consensus recommendations based on imaging criteria. Laboratory Results WBC 3.5 10^3/uL (4.0-10.0) L 09/19/21 02:30 RBC 5.04 10^6/uL (4.1-5.3) 09/19/21 02:30 Hgb 13.6 g/dL (11.7-16.6) 09/19/21 02:30 Hct 42.0 % (42.0-52.0) 09/19/21 02:30 MCV 83.3 fl (80-94) 09/19/21 02:30 MCH 27.0 pg (28.0-34.0) L 09/19/21 02:30 MCHC 32.4 g/dL (30.0-36.0) 09/19/21 02:30 RDW 15.4 % (12.1-15.1) H 09/19/21 02:30 Plt Count 97 10^3/cmm (130-400) L 09/19/21 02:30 MPV 11.8 fL (7.4-10.4) H 09/19/21 02:30 Neut % (Auto) 68.3 % 09/19/21 02:30 Lymph % (Auto) 13.4 % 09/19/21 02:30 Teller % (Auto) 17.4 % 09/19/21 02:30 Eos % (Auto) 0.0 % 09/19/21 02:30 Baso % (Auto) 0.3 % 09/19/21 02:30 Neut # (Auto) 2.40 10^3/uL (1.8-7.7) 09/19/21 02:30 Lymph # (Auto) 0.5 10^3/uL (0.8-4.8) L 09/19/21 02:30 Teller # (Auto) 0.6 10^3/uL (0.2-0.9) 09/19/21 02:30 Eos # (Auto) 0.0 10^3/uL (0.0-0.8) 09/19/21 02:30 Baso # (Auto) 0.0 10^3/uL (0.0-0.1) 09/19/21 02:30 Nucleated RBC % (auto) 0 % 09/19/21 02:30 Nucleated RBCs # 0.0 /100WBC 09/19/21 02:30 Sodium 136 mmol/L (136-145) 09/19/21 02:30 Potassium 3.6 mmol/L (3.5-5.1) 09/19/21 02:30 Chloride 101 mmol/L (98-107) 09/19/21 02:30 Carbon Dioxide 22 mmol/L (22-29) 09/19/21 02:30 Anion Gap 16.6 (5-19) 09/19/21 02:30 BUN 17 mg/dL (8-23) 09/19/21 02:30 Creatinine 1.0 mg/dL (0.7-1.2) 09/19/21 02:30 GFR Calculation Not Reportable 09/19/21 02:30 Glucose 88 mg/dL (65-115) 09/19/21 02:30 Calculated Osmolality 283 mOsm/kg (285-295) L 09/19/21 02:30 Lactate 1.1 mmol/L (0.5-2.2) 09/19/21 03:00 Calcium 9.1 mg/dL (8.5-10.5) 09/19/21 02:30 Total Bilirubin 0.4 mg/dL (0.15-1.2) 09/19/21 02:30 AST 23 U/L (0-40) 09/19/21 02:30 ALT 19 U/L (0-41) 09/19/21 02:30 Alkaline Phosphatase 200 IU/L (40-130) H 09/19/21 02:30 C-Reactive Protein 38.7 mg/L (0.0-4.9) H 09/19/21 02:30 Total Protein 7.8 g/dL (6.6-8.7) 09/19/21 02:30 Albumin 3.9 g/dL (3.5-5.2) 09/19/21 02:30 Globulin 3.9 g/dL (1.3-4.6) 09/19/21 02:30 Lipase 27 U/L (13-60) 09/19/21 02:30 Urine Color Yellow (Yellow) 09/19/21 03:06 Urine Appearance Clear (CLEAR) 09/19/21 03:06 Urine pH 5 (5-7) 09/19/21 03:06 Ur Specific Haviland 1.030 (1.005-1.030) 09/19/21 03:06 Urine Protein Trace (Negative) 09/19/21 03:06 Urine Glucose (UA) Norm (Normal) 09/19/21 03:06 Urine Ketones Negative (Negative) 09/19/21 03:06 Urine Blood 2+ (Negative) H 09/19/21 03:06 Urine Nitrate Negative (Negative) 09/19/21 03:06 Urine Bilirubin Neg (Negative) 09/19/21 03:06 Urine Urobilinogen Norm mg/dL (Negative) 09/19/21 03:06 Ur Leukocyte Esterase Negative (Negative) 09/19/21 03:06 Urine RBC 5-10 /hpf (0-2) H 09/19/21 03:06 Urine WBC 0-4 /hpf (0-5) H 09/19/21 03:06 Ur Squamous Epith Cells 0-4 /hpf (0-5) H 09/19/21 03:06 Amorphous Sediment Not Reportable 09/19/21 03:06 Urine Bacteria Trace /hpf (NONE) 09/19/21 03:06 Urine Mucus 1+ /hpf 09/19/21 03:06 A&P Assessment and plan (1) C. difficile colitis: Status: Acute (2) Fall: Status: Acute (3) Dizziness: Status: Acute (4) Major depressive disorder, recurrent: Status: Acute (5) Cancer cachexia: Status: Acute (6) Protein-energy malnutrition: Status: Acute Plan 68-year-old male who was recently discharged from hospital after being treated for C. difficile colitis, atrial fibrillation rapid ventricular response, possible postobstructive pneumonia came back to the ER because of persistent diarrhea, dizziness and fall. Start on vancomycin 5 mL 4 times daily, IV Flagyl. Check orthostatics every shift. Normal saline at 75 cc/h. Check CBC, CMP, UA, MRSA swab, blood culture, Pro-Alexander. Continue on doxycycline for 3 more days as per recent discharge. Continue Klonopin but at a lower dose of 0.5 mg 3 times daily. Continue with Cardizem 120 mg oral daily, metoprolol 25 mg twice daily as per recent discharge. Continue with telemetry. We will have to change medications with positive orthostatics. Continue with decreased pain medications as per recent discharge on morphine 60 mg every 12, oxycodone 1 tab every 6 hour. Most likely will have to be decreased on lesser oxycodone on less frequent Check CT head given to recent fall at home. DNR/DNI. Cardiac diet. Lovenox 40 mg for DVT prophylaxis. Protonix for PUD prophylaxis Discharge planning: Patient's primary caregiver is his who is also wheelchair-bound. Discussed in detail with patient regarding possible placement to SNF at least for short-term for rehabitation. Patient denies currently. Case management alerted. Physical therapy evaluation. Attestations Medical Necessity Statement*: Admission for more than 2 midnights for management of severe protein energy malnutrition, cancer cachexia, C. difficile colitis with persistent diarrhea and fall. Time Spent in Patient Care: Greater than 35 minutes Coding Level of Care Code Acute Superintendent Construction for [facility] Fwd Diagnoses C. difficile colitis A04.72 Fall W19.XXXA Dizziness R42 Major depressive disorder, recurrent F33.9 Cancer cachexia R64 Protein-energy malnutrition E46
--- NOTE | 2021-09-19 12:06 | CTR_ITS ---
PROCEDURE INFORMATION: Exam: CT Head Without Contrast Exam date and time: 09/19/2021 2:03 PM Age: 70 years old Clinical indication: Injury or trauma; Fall; Blunt trauma (contusions or hematomas) TECHNIQUE: Imaging protocol: Computed tomography of the head without contrast. Radiation optimization: All CT scans at this facility use at least one of these dose optimization techniques: automated exposure control; mA and/or kV adjustment per patient size (includes targeted exams where dose is matched to clinical indication); or iterative reconstruction. COMPARISON: CT head wo con* [id number] 09/16/2021 10:09 AM RADIATION DOSE METRICS: Total DLP (mGy-cm): 829.57 FINDINGS: Brain: There is no acute intracranial hemorrhage, cerebral edema, or midline shift. Mild chronic small vessel ischemic disease is present in the cerebral white matter. Cerebral ventricles: No hydrocephalus. Paranasal sinuses: There is no acute sinusitis. Mastoid air cells: Visualized mastoid air cells are well aerated. Orbital cavities: The visualized orbits appear unremarkable. Bones/joints: No acute fracture. Soft tissues: Unremarkable. Vasculature: Atherosclerotic calcifications are seen involving the cavernous carotid arteries. CT/CT head wo con* [id number] IMPRESSION: No acute intracranial abnormality.
[2021-09-19 12:22] LABS: Iron 26 ug/dL (59-158); Percent Saturation 12.3 % (20-50); Total Iron Binding Capacity 210 mcg/dl; Unsaturated Iron Binding 184 ug/dL (112-347)
[2021-09-19 12:29] LABS: Procalcitonin 0.12 ng/mL (0-0.5)
[2021-09-19] MEDS: morphine ER (12 HR) 30 mg tablet 60 MG PO ×2 (12:40→23:15)
[2021-09-19] MEDS: enoxaparin 30 mg/0.3 mL Syringe SUBCUT (12:43)
[2021-09-19] MEDS: dilTIAZem ER (24HR) 120 mg Capsule PO (12:43)
[2021-09-19] MEDS: metroNIDAZOLE IV 500 MG/100 ML PREMIX 100 MG IV ×2 (12:44→20:14)
[2021-09-19] MEDS: sodium chloride 0.9% 1,000 ML 75 ML IV (12:46)
[2021-09-19] MEDS: CLONazepam 1 mg Tablet 0.5 MG PO ×2 (16:02→20:10)
[2021-09-19] MEDS: doxycycline 100 mg Tablet PO (17:42)
[2021-09-19] MEDS: metoprolol tartrate 25 mg Tablet PO (20:11)
[2021-09-19] MEDS: oxyCODONE-APAP 5-325 mg Tablet 1 TAB PO (20:21)
[2021-09-19 21:47] LABS: Add Urine Microscopic? YES; Bilirubin Urine Neg (Negative); Blood Urine 2+ (Negative); Glucose Urine UA Norm (Normal); Ketones Urine Negative (Negative); Leukocyte Esterase Urine Trace (Negative); Nitrate Urine Negative (Negative); Protein Urine Neg (Negative); Specific Gravity, Urine 1.025 (1.005-1.030); Urine Appearance Clear (CLEAR); Urine Color Yellow (Yellow); Urobilinogen Urine Norm (Negative); pH Urine 5 (5-7)
[2021-09-19 21:48] LABS: Add Urine Culture? Yes; Bacteria Urine TRACE /hpf; Mucus Urine 2+ /hpf; Squamous Epithelial Cell Urine 0-4 /hpf (0-5); WBC Urine 0-4 /hpf (0-5)
[2021-09-19] MEDS: lanolin oint 7 gm 1 APPLIC TOPICAL (23:14)
[2021-09-20] VITALS (10 sets, daily range): BP systolic 91–117; BP diastolic 44–66; PULSE 70–97; RESP 16–18; TEMP 36.3–36.8; O2SAT 94–100
[2021-09-20] MEDS: metroNIDAZOLE IV 500 MG/100 ML PREMIX 100 MG IV ×3 (03:09→20:10)
[2021-09-20] MEDS: sodium chloride 0.9% 1,000 ML 75 ML IV ×2 (03:09→17:26)
[2021-09-20 04:48] LABS: Basophils % 0.7 %; Eosinophils % 0.7 %; Hematocrit 32.9 % (42.0-52.0); Hemoglobin 10.9 g/dL (11.7-16.6); Lymphocytes # 0.3 10^3/uL (0.8-4.8); Lymphocytes % 19.4 %; Mean Corpuscular HGB Conc 33.1 g/dL (30.0-36.0); Mean Corpuscular Hemoglobin 27.7 pg (28.0-34.0); Mean Corpuscular Volume 83.5 fl (80-94); Mean Platelet Volume 11.2 fL (7.4-10.4); Monocytes # 0.2 10^3/uL (0.2-0.9); Monocytes % 15.8 %; Neutrophils % 62.7 %; Nucleated Red Blood Cells % 0 %; Platelet Count 66 10^3/cmm (130-400); Red Blood Count 3.94 10^6/uL (4.1-5.3); Red Cell Distribution Width 15.2 % (12.1-15.1); White Blood Count 1.4 10^3/uL (4.0-10.0)
[2021-09-20 05:11] LABS: Alanine Aminotransferase 14 U/L (0-41); Albumin Level 3.1 g/dL (3.5-5.2); Alkaline Phosphatase 150 IU/L (40-130); Anion Gap 12.8 (5-19); Aspartate Amino Transferase 18 U/L (0-40); Blood Urea Nitrogen 14 mg/dL (8-23); Carbon Dioxide 23 mmol/L (22-29); Chloride 105 mmol/L (98-107); Chol HDL Ratio 2.29 mg/dL (1.0-5.00); Cholesterol 71 mg/dL (0-200); Glucose 79 mg/dL (65-115); HDL Cholesterol 31 mg/dL (60-100); LDL Cholesterol Calculated 29 mg/dL (50-129); Magnesium 1.7 mg/dL (1.7-2.3); Osmolality Calculated 283 mOsm/kg (285-295); Phosphorus 2.6 mg/dL (2.5-4.5); Potassium 3.8 mmol/L (3.5-5.1); Sodium 137 mmol/L (136-145); Total Bilirubin 0.2 mg/dL (0.15-1.2); Total Protein 6.1 g/dL (6.6-8.7); Triglycerides 57 mg/dL (0-150); VLDL Cholestrol Calculation 11 mg/dL (0-30)
[2021-09-20 05:33] LABS: Neutrophils # 0.87 10^3/uL (1.8-7.7)
[2021-09-20 05:38] LABS: Estmated Average Glucose 82; Hemoglobin A1C 4.5 % (4.0-6.0)
[2021-09-20] MEDS: aspirin 81 mg EC Tablet PO (08:47)
[2021-09-20] MEDS: pantoprazole DR 40 mg Tablet PO (08:47)
[2021-09-20] MEDS: doxycycline 100 mg Tablet PO ×2 (08:47→17:26)
[2021-09-20] MEDS: CLONazepam 1 mg Tablet 0.5 MG PO ×3 (08:47→21:43)
[2021-09-20] MEDS: dilTIAZem ER (24HR) 120 mg Capsule PO (08:48)
[2021-09-20] MEDS: metoprolol tartrate 25 mg Tablet PO ×2 (08:54→21:42)
--- NOTE | 2021-09-20 10:41 | PC.CHAP ---
Pastoral Care Encounter/Spiritual Assessment Type of Contact [] Declined hotel service manager visit [] Patient/Family/Request visit [] Outpatient visit [] Follow-up visit [] Physician referral [] Code/Alert [x] Routine visit [] Staff referral [] Actively dying [] Patient sleeping [] Family support [] [] Out of room [] Palliative care [] [x] Receiving care in room [] Pre-surgical visit [] Trauma [] Long length of stay [] ICU visit [] Other: Relational/Emotional Strength [] Patient feels connected with others/family/visitors/staff [] Distress [] Loneliness/isolation [] Abandonment Spirituality of Patient [] Person of Ana [] Attends Presybeterian of their Ana [] Believes in Prayer [] Reads Bible or Samaritan materials [] There are Spiritual issues to be addressed Bartacker Interventions [] Prayer [] Active listening [] Non-anxious presence [] Spiritual/emotional support [] Crisis/trauma care [] Spiritual counseling [] Bereavement support [] Provided bereavement packet [] Provided Bible/devotional materials [] Provided toy/stuffed animal, coloring book to patient or family member [] Provided Communion [] Anointing/Velpen [] Salvation [x] Completed spiritual assessment [] Other: Impact on Illness or Injury [] Angry [] Fearful [] Anxious [] Often cries [] Exhaustion [] Unable to work [] Unable to attend mandaen [] Unable to walk/stand [] Unable to read [] Unable to drive [] Unable to eat/drink [] Unable to sleep [] Unable to be with family [] Patient intubated [] Other: Summary Time spent with patient
--- NOTE | 2021-09-20 11:06 | P.PN_ITS ---
Subjective Subjective: Patient was seen and examined this morning, states that no episode of watery stool, this morning, says that appetite has improved, denies any abdominal pain, nausea vomiting. Medications: Medication Review Details: Generic Name Dose Route Start Last Admin Trade Name Anayeli PRN Reason Stop Dose Admin Aspirin 81 mg 09/20/21 09:00 09/20/21 08:47 Aspirin 81 Mg Ec Tablet PO 81 mg DAILY CRESENCIO Administration Clonazepam 0.5 mg 09/19/21 15:00 09/20/21 08:47 Clonazepam 1 Mg Tablet PO 0.5 mg TID CRESENCIO Administration Diltiazem HCl 120 mg 09/19/21 12:00 09/20/21 08:48 Diltiazem Er (24 hr) 120 Mg Capsule PO 120 mg DAILY CRESENCIO Administration Doxycycline Monohy drate 100 mg 09/19/21 18:00 09/20/21 08:47 Doxycycline 100 Mg Tablet PO 09/23/21 17:59 100 mg BID CRESENCIO Administration Protocol Metronidazole 500 mg in 100 mls @ 100 mls/hr 09/19/21 12:00 09/20/21 04:44 Flagyl Iv IV Infused Q8H CRESENCIO Infusion Protocol Sodium Chloride 1,000 mls @ 75 ml s/hr 09/19/21 12:00 09/20/21 03:09 Sodium Chloride 0.9% IV 75 mls/hr .[id number] CRESENCIO Administration Lanolin 1 applic 09/19/21 22:59 09/19/21 23:14 Lanolin Oint 7 G m TOPICAL 1 applic PRN PRN Administration DRYNESS Metoprolol Tartrat e 25 mg 09/19/21 21:00 09/20/21 08:54 Metoprolol Tartr ate 25 Mg Tablet PO 25 mg BID@0900,2100 CRESENCIO Administration Morphine Sulfate 60 mg 09/19/21 12:00 09/19/21 23:15 Morphine Er (12 Hr) 30 Mg Tablet PO 60 mg Q12H CRESENCIO Administration Oxycodone/Acetamin ophen 1 tab 09/19/21 11:54 09/19/21 20:21 Oxycodone-Apap 5 -325 Mg Tablet PO 1 tab Q6H PRN Administration pain Pantoprazole Sodiu m 40 mg 09/20/21 09:00 09/20/21 08:[address] 40 Mg Tablet PO 40 mg DAILY CRESENCIO Administration Fluticasone/Salmet danuta 1 puff 09/19/21 20:00 09/20/21 07:38 Fluticasone-Salm eterol 250-50 Disk us INHALATION 1 puff BID.RESPIRATORY S CH Administration Tiotropium [place] 18 mcg 09/20/21 08:00 09/20/21 07:38 Tiotropium 18 Mc g Mdi INHALATION 1 puff DAILY.RESPIRATORY CRESENCIO Administration Vancomycin HCl 500 mg 09/19/21 13:00 09/20/21 08:54 Vancomycin 1,000 Mg Oral Kat (Btl) PO 5 ml QID CRESENCIO Administration Vitals/I&O/Wt Last Vital Signs Temp 97.7 F 09/20/21 03:53 Pulse 88 09/20/21 07:00 Resp 18 09/20/21 07:00 BP 91/44 09/20/21 03:53 Pulse Ox 98 09/20/21 07:00 09/19/21 09/20/21 09/20/21 22:59 06:59 14:59 Intake Total 559 / 659 1100 / 1759 600 / 600 Output Total 300 / 500 250 / 750 225 / 225 Balance 259 / 159 850 / 1009 375 / 375 Weight last 48 hrs Weight 59.058 kg Weight 56.699 kg Physical Exam Const: COMMON NORMALS: patient oriented x3 HENMT: COMMON NORMALS: normocephalic and atraumatic HEAD & SCALP: normocephalic and atraumatic Resp: COMMON NORMALS: clear to auscultation bilaterally EFFORT & INSPECTION: Yes symmetric chest movement AUSCULTATION: clear to auscultation bilaterally Cardio: COMMON NORMALS: regular rate, regular rhythm, S1 normal heart sound present, S2 normal heart sound present, No gallops present (Cardio), No murmurs present (Cardio), No rub (Cardio) and Peripheral pulses 2+ throughout RATE: regular rate RHYTHM: regular rhythm HEART SOUNDS: S1 normal heart sound present and S2 normal heart sound present PERIPHERAL PULSES: Peripheral pulses 2+ throughout GI: COMMON NORMALS: Normal to inspection, nondistended, normoactive bowel sounds present, Soft to palpation, non-tender, No hepatosplenomegaly present and no masses AUSCULTATION: Yes normoactive bowel sounds PALPATION: Yes Soft to palpation and Yes No hepatosplenomegaly present RECTAL EXAM: Yes deferred Extremity: COMMON NORMALS: no clubbing, cyanosis or edema and no pedal edema Neuro: COMMON NORMALS: patient oriented x3 Data : 09/20/21 03:55 09/20/21 03:55 Micro: Microbiology 09/19/21 21:00 Bacterial Antigens - Final Urine Kidney 09/19/21 13:05 Blood Culture - Preliminary Blood SPECIMEN COLLECTED 09/19/21 13:04 Blood Culture - Preliminary Blood SPECIMEN COLLECTED A&P Assessment and plan (1) C. difficile colitis: Status: Acute (2) Fall: Status: Acute (3) Dizziness: Status: Acute (4) Major depressive disorder, recurrent: Status: Acute (5) Cancer cachexia: Status: Acute (6) Protein-energy malnutrition: Status: Acute (7) Leukopenia: Status: Acute (8) Thrombocytopenia: Status: Acute (9) Splenomegaly: Status: Acute (10) Gastric varices: Status: Acute (11) Thrombocytopenia: Status: Acute (12) Cancer of left lung: Status: Acute (13) Neutropenia: Status: Acute Plan 68-year-old male who was recently discharged from hospital after being treated for C. difficile colitis, atrial fibrillation rapid ventricular response, possible postobstructive pneumonia came back to the ER because of persistent diarrhea, dizziness and fall. Start on vancomycin 5 mL 4 times daily, IV Flagyl. Check orthostatics every shift. Normal saline at 75 cc/h. Check CBC, CMP, UA, MRSA swab, blood culture, Pro-Alexander. Continue on doxycycline for 3 more days as per recent discharge. Continue Klonopin but at a lower dose of 0.5 mg 3 times daily. Continue with Cardizem 120 mg oral daily, metoprolol 25 mg twice daily as per recent discharge. Continue with telemetry. We will have to change medications with positive orthostatics. Continue with decreased pain medications as per recent discharge on morphine 60 mg every 12, oxycodone 1 tab every 6 hour. Most likely will have to be decreased on lesser oxycodone on less frequent Check CT head given to recent fall at home. DNR/DNI. Cardiac diet. Lovenox 40 mg for DVT prophylaxis. Protonix for PUD prophylaxis Discharge planning: Patient's primary caregiver is his who is also wheelchair-bound. Discussed in detail with patient regarding possible placement to SNF at least for short-term for rehabitation. Patient denies currently. Case management alerted. Physical therapy evaluation. Attestations Medical Necessity Statement*: Patient is still in hospital management of C.diff Time Spent in Patient Care: Greater than 35 minutes (>than 50% of time spent in counselling and/or direct pt care on unit) . Coding Level of Care Code Acute Regional Sales Engineer for g Fwd Diagnoses C. difficile colitis A04.72 Fall W19.XXXA Dizziness R42 Major depressive disorder, recurrent F33.9 Cancer cachexia R64 Protein-energy malnutrition E46 Leukopenia D72.819 Thrombocytopenia D69.6 Splenomegaly R16.1 Gastric varices I86.4 Thrombocytopenia D69.6 Cancer of left lung C34.92 Neutropenia D70.9
[2021-09-20] MEDS: morphine ER (12 HR) 30 mg tablet 60 MG PO ×2 (12:11→23:46)
[2021-09-21] VITALS (14 sets, daily range): BP systolic 86–141; BP diastolic 40–69; PULSE 71–102; RESP 17–20; TEMP 36.3–36.8; O2SAT 91–98
--- NOTE | 2021-09-21 03:10 | PC.NURSE ---
Pt lying in bed and talking to staff. Pt confused and yelling out. Pt resp even and non-labored no distress or sob noted. Pt had no c/o pain at the present time. Call light in reach.
[2021-09-21 04:05] LABS: Basophils % 1.1 %; Hematocrit 29.1 % (42.0-52.0); Hemoglobin 9.7 g/dL (11.7-16.6); Lymphocytes # 0.3 10^3/uL (0.8-4.8); Lymphocytes % 36.8 %; Mean Corpuscular HGB Conc 33.3 g/dL (30.0-36.0); Mean Corpuscular Volume 81.1 fl (80-94); Mean Platelet Volume 11.9 fL (7.4-10.4); Monocytes # 0.2 10^3/uL (0.2-0.9); Monocytes % 26.4 %; Neutrophils % 34.6 %; Nucleated Red Blood Cells % 0 %; Platelet Count 51 10^3/cmm (130-400); Red Blood Count 3.59 10^6/uL (4.1-5.3); Red Cell Distribution Width 14.8 % (12.1-15.1)
[2021-09-21 04:20] LABS: White Blood Count 0.9 10^3/uL (4.0-10.0)
[2021-09-21 04:30] LABS: Alanine Aminotransferase 14 U/L (0-41); Albumin Level 2.6 g/dL (3.5-5.2); Alkaline Phosphatase 131 IU/L (40-130); Aspartate Amino Transferase 22 U/L (0-40); Blood Urea Nitrogen 10 mg/dL (8-23); Calcium 7.7 mg/dL (8.5-10.5); Carbon Dioxide 22 mmol/L (22-29); Chloride 104 mmol/L (98-107); Globulin 2.6 g/dL (1.3-4.6); Glucose 90 mg/dL (65-115); Osmolality Calculated 277 mOsm/kg (285-295); Sodium 134 mmol/L (136-145); Total Bilirubin 0.2 mg/dL (0.15-1.2); Total Protein 5.2 g/dL (6.6-8.7)
[2021-09-21 04:31] LABS: Creatinine Clr Calc Pharmacy 69.7213
[2021-09-21] MEDS: metroNIDAZOLE IV 500 MG/100 ML PREMIX 100 MG IV ×3 (05:24→21:46)
[2021-09-21] MEDS: sodium chloride 0.9% 1,000 ML 75 ML IV (05:24)
[2021-09-21] MEDS: oxyCODONE-APAP 5-325 mg Tablet 1 TAB PO ×2 (07:34→17:43)
[2021-09-21] MEDS: doxycycline 100 mg Tablet PO ×2 (08:46→17:38)
[2021-09-21] MEDS: metoprolol tartrate 25 mg Tablet PO (08:46)
[2021-09-21] MEDS: CLONazepam 1 mg Tablet 0.5 MG PO ×3 (08:46→21:57)
[2021-09-21] MEDS: pantoprazole DR 40 mg Tablet PO (08:47)
--- NOTE | 2021-09-21 09:14 | P.PN_ITS ---
Subjective Subjective: Patient was seen and examined this morning, no ongoing diarrhea,has been afebrile,says that appetite has improved,WBC as well as neutrophil count as well as platelet count has further decreased. no peteche or purpura noted, no obvious bleeding. want to talk to his . Medications: Medication Review Details: Generic Name Dose Route Start Last Admin Trade Name Mateusq PRN Reason Stop Dose Admin Aspirin 81 mg 09/20/21 09:00 09/20/21 08:47 Aspirin 81 Mg Ec Tablet PO 81 mg DAILY CRESENCIO Administration Clonazepam 0.5 mg 09/19/21 15:00 09/20/21 08:47 Clonazepam 1 Mg Tablet PO 0.5 mg TID CRESENCIO Administration Diltiazem HCl 120 mg 09/19/21 12:00 09/20/21 08:48 Diltiazem Er (24 hr) 120 Mg Capsule PO 120 mg DAILY CRESENCIO Administration Doxycycline Monohy drate 100 mg 09/19/21 18:00 09/20/21 08:47 Doxycycline 100 Mg Tablet PO 09/23/21 17:59 100 mg BID CRESENCIO Administration Protocol Metronidazole 500 mg in 100 mls @ 100 mls/hr 09/19/21 12:00 09/20/21 04:44 Flagyl Iv IV Infused Q8H CRESENCIO Infusion Protocol Sodium Chloride 1,000 mls @ 75 ml s/hr 09/19/21 12:00 09/20/21 03:09 Sodium Chloride 0.9% IV 75 mls/hr .[id number] CRESENCIO Administration Lanolin 1 applic 09/19/21 22:59 09/19/21 23:14 Lanolin Oint 7 G m TOPICAL 1 applic PRN PRN Administration DRYNESS Metoprolol Tartrat e 25 mg 09/19/21 21:00 09/20/21 08:54 Metoprolol Tartr ate 25 Mg Tablet PO 25 mg BID@0900,2100 CRESENCIO Administration Morphine Sulfate 60 mg 09/19/21 12:00 09/19/21 23:15 Morphine Er (12 Hr) 30 Mg Tablet PO 60 mg Q12H CRESENCIO Administration Oxycodone/Acetamin ophen 1 tab 09/19/21 11:54 09/19/21 20:21 Oxycodone-Apap 5 -325 Mg Tablet PO 1 tab Q6H PRN Administration pain Pantoprazole Sodiu m 40 mg 09/20/21 09:00 09/20/21 08:[address] 40 Mg Tablet PO 40 mg DAILY CRESENCIO Administration Fluticasone/Salmet danuta 1 puff 09/19/21 20:00 09/20/21 07:38 Fluticasone-Salm eterol 250-50 Disk us INHALATION 1 puff BID.RESPIRATORY S CH Administration Tiotropium [place] 18 mcg 09/20/21 08:00 09/20/21 07:38 Tiotropium 18 Mc g Mdi INHALATION 1 puff DAILY.RESPIRATORY CRESENCIO Administration Vancomycin HCl 500 mg 09/19/21 13:00 09/20/21 08:54 Vancomycin 1,000 Mg Oral Kat (Btl) PO 5 ml QID CRESENCIO Administration Vitals/I&O/Wt Last Vital Signs Temp 97.3 F L 09/21/21 07:50 Pulse 82 09/21/21 07:50 Resp 18 09/21/21 07:50 BP 103/50 09/21/21 07:50 Pulse Ox 94 09/21/21 07:50 09/20/21 09/21/21 09/21/21 22:59 06:59 14:59 Intake Total 1365 / 2065 897.5 / 2962.5 100 / 100 Output Total 700 / 1050 175 / 175 Balance 1365 / 1715 197.5 / 1912.5 -75 / -75 Weight last 48 hrs Weight 58.967 kg Weight 59.058 kg Physical Exam Const: COMMON NORMALS: patient oriented x3 HENMT: COMMON NORMALS: normocephalic and atraumatic HEAD & SCALP: normocephalic and atraumatic Resp: COMMON NORMALS: clear to auscultation bilaterally EFFORT & INSPECTION: Yes symmetric chest movement AUSCULTATION: clear to auscultation bilaterally Cardio: COMMON NORMALS: regular rate, regular rhythm, S1 normal heart sound present, S2 normal heart sound present, No gallops present (Cardio), No murmurs present (Cardio), No rub (Cardio) and Peripheral pulses 2+ throughout RATE: regular rate RHYTHM: regular rhythm HEART SOUNDS: S1 normal heart sound present and S2 normal heart sound present PERIPHERAL PULSES: Peripheral pulses 2+ throughout GI: COMMON NORMALS: Normal to inspection, nondistended, normoactive bowel sounds present, Soft to palpation, non-tender, No hepatosplenomegaly present and no masses AUSCULTATION: Yes normoactive bowel sounds PALPATION: Yes Soft to palpation and Yes No hepatosplenomegaly present RECTAL EXAM: Yes deferred Extremity: COMMON NORMALS: no clubbing, cyanosis or edema and no pedal edema Neuro: COMMON NORMALS: patient oriented x3 Data : 09/21/21 03:42 09/21/21 03:42 Micro: Microbiology 09/19/21 21:00 Urine Culture - Final Urine,Clean Catch 09/19/21 13:05 Blood Culture - Preliminary Blood NEGATIVE TO DATE 09/19/21 13:04 Blood Culture - Preliminary Blood NEGATIVE TO DATE 09/19/21 21:00 Bacterial Antigens - Final Urine Kidney A&P Assessment and plan (1) C. difficile colitis: Status: Acute (2) Fall: Status: Acute (3) Dizziness: Status: Acute (4) Major depressive disorder, recurrent: Status: Acute (5) Cancer cachexia: Status: Acute (6) Protein-energy malnutrition: Status: Acute (7) Leukopenia: Status: Acute (8) Thrombocytopenia: Status: Acute (9) Splenomegaly: Status: Acute (10) Gastric varices: Status: Acute (11) Cancer of left lung: Status: Acute (12) Neutropenia: Status: Acute Plan 68-year-old male who was recently discharged from hospital after being treated for C. difficile colitis, atrial fibrillation rapid ventricular response, possible postobstructive pneumonia came back to the ER because of persistent diarrhea, dizziness and fall. Assessment : C.Difficle Collitis Nuetropenia Leukopenia Chronic Thrombocytopenia Atrial Fibrillation Non-small cell lt lung cancer, stage IIIc COPD Splenomegaly Major depressive disorder Plan : Blood Culture : NTD Urine Culture Negative CT abdomen pelvis wo con: No acute findings. CT head wo con: No acute Intrcranial pathology on vancomycin 5 mL 4 times daily, IV Flagyl. Check orthostatics every shift. Continue on doxycycline for 3 more days as per recent discharge. Continue Klonopin but at a lower dose of 0.5 mg 3 times daily. Continue Metoprolol 25 mg po bid, hold cardizem for now as the blood pressure is soft. Continue with decreased pain medications as per recent discharge on morphine 60 mg every 12, oxycodone 1 tab every 6 hour. Started on Filgrastim 300 mcg sc daily Code status : DNR/DNI. Discharge planning: Patient's primary caregiver is his who is also wheel chair-bound. Discussed in detail with patient regarding possible placement to SNF at least for short-term for rehabitation. Patient denies currently. Case management alerted. Physical therapy evaluation. Attestations Medical Necessity Statement*: Patient needs to be in hospital for the management of c.diff, neutropenia. Time Spent in Patient Care: Greater than 35 minutes (>than 50% of time spent in counselling and/or direct pt care on unit) . Coding Level of Care Code Acute Front Line Leader for [facility] Fwd Exam Detailed Diagnoses C. difficile colitis A04.72 Fall W19.XXXA Dizziness R42 Major depressive disorder, recurrent F33.9 Cancer cachexia R64 Protein-energy malnutrition E46 Leukopenia D72.819 Thrombocytopenia D69.6 Splenomegaly R16.1 Gastric varices I86.4 Cancer of left lung C34.92 Neutropenia D70.9
[2021-09-21] MEDS: morphine ER (12 HR) 30 mg tablet 60 MG PO (12:16)
[2021-09-22] VITALS (8 sets, daily range): BP systolic 100–110; BP diastolic 56–61; PULSE 88–98; RESP 17–18; TEMP 36.8–37.1; O2SAT 90–94
[2021-09-22] MEDS: metoprolol tartrate 25 mg Tablet 12.5 MG PO (00:16)
[2021-09-22] MEDS: morphine ER (12 HR) 30 mg tablet 60 MG PO ×2 (00:17→11:47)
[2021-09-22] MEDS: metroNIDAZOLE IV 500 MG/100 ML PREMIX 100 MG IV ×2 (04:34→11:47)
[2021-09-22 08:32] LABS: Basophils % 0.7 %; Eosinophils % 0.4 %; Hematocrit 32.3 % (42.0-52.0); Hemoglobin 10.8 g/dL (11.7-16.6); Lymphocytes # 0.3 10^3/uL (0.8-4.8); Lymphocytes % 12.2 %; Mean Corpuscular HGB Conc 33.4 g/dL (30.0-36.0); Mean Corpuscular Hemoglobin 27.4 pg (28.0-34.0); Mean Platelet Volume 11.5 fL (7.4-10.4); Monocytes # 0.2 10^3/uL (0.2-0.9); Monocytes % 8.6 %; Neutrophils # 2.16 10^3/uL (1.8-7.7); Neutrophils % 77.4 %; Nucleated Red Blood Cells % 0 %; Platelet Count 47 10^3/cmm (130-400); Red Blood Count 3.94 10^6/uL (4.1-5.3); Red Cell Distribution Width 15.1 % (12.1-15.1); White Blood Count 2.8 10^3/uL (4.0-10.0)
[2021-09-22 09:06] LABS: Alanine Aminotransferase 13 U/L (0-41); Albumin Level 2.6 g/dL (3.5-5.2); Alkaline Phosphatase 145 IU/L (40-130); Aspartate Amino Transferase 25 U/L (0-40); Blood Urea Nitrogen 10 mg/dL (8-23); Calcium 7.8 mg/dL (8.5-10.5); Carbon Dioxide 23 mmol/L (22-29); Chloride 102 mmol/L (98-107); Globulin 3.2 g/dL (1.3-4.6); Glucose 94 mg/dL (65-115); Osmolality Calculated 279 mOsm/kg (285-295); Sodium 135 mmol/L (136-145); Total Bilirubin 0.3 mg/dL (0.15-1.2); Total Protein 5.8 g/dL (6.6-8.7)
[2021-09-22] MEDS: metoprolol tartrate 25 mg Tablet PO (09:53)
[2021-09-22] MEDS: doxycycline 100 mg Tablet PO (09:53)
[2021-09-22] MEDS: pantoprazole DR 40 mg Tablet PO (09:53)
[2021-09-22] MEDS: CLONazepam 1 mg Tablet 0.5 MG PO (09:54)
[2021-09-22 10:12] LABS: INR 1.14 (0.8-1.2); Partial Thromboplastin Time 39.1 SECONDS (23.9-36.7)
[2021-09-22 10:13] LABS: Fibrinogen 338 mg/dL (174-498)
--- NOTE | 2021-09-22 10:27 | P.DS_ITS ---
Discharge Providers Date of Admission: 09/19/21 05:52 Date of Discharge: September 22, 2021 Attending Provider at Admission: Asia Barton MD Attending Provider at Discharge: Jose Cruz Coles MD Primary Care Provider: Nicholas Bergman MD Diagnoses at Discharge Discharge Diagnosis (1) C. difficile colitis: Status: Acute (2) Fall: Status: Acute (3) Dizziness: Status: Acute (4) Major depressive disorder, recurrent: Status: Acute (5) Cancer cachexia: Status: Acute (6) Protein-energy malnutrition: Status: Acute (7) Leukopenia: Status: Acute (8) Thrombocytopenia: Status: Acute (9) Splenomegaly: Status: Acute (10) Gastric varices: Status: Acute (11) Cancer of left lung: Status: Acute Permanent problem details: Non-small cell lung cancer, stage IIIc (12) Neutropenia: Status: Acute Reason for Visit Reason for Visit: diarrhea cdiff Hospital Course Hospital Course HPI : Domo Monsalve MD Miguel Aguilar is a 70 year old male with past medical history of anxiety, atrial flutter, COPD, hypertension, depressive disorder who was recently discharged from the hospital on 09/17 when he was treated for C. difficile colit is, atrial fibrillation with rapid ventricular response and was sent home on oral vancomycin, oral Cardizem and metoprolol.? His last hospitalization was complicated by him having episodes of agitation which were treated with decreasing his home narcotic pain medications along 1 episode of fall. Patient was sent back to the ER today by his because of continued episodes of diarrhea at home, continued weakness along with 1 episode of fall at home again.? Patient states he is also been having dizziness on standing up.? Denies any fever, difficulty in breathing.? On examination he is feeling fairly anxious and states he has not taken his home dose of Klonopin till now.? On examination his blood pressures were 115/60, heart rate of 80, afebrile and saturating well on room air. Hospital course: Patient was admitted for management of C. difficile colitis: He was started on p.o. vancomycin as well as IV metronidazole, patient responded well, was not having any diarrhea,abdominal pain nausea vomiting. He was tolerating diet, appetite had improved. He was discharged on p.o. vancomycin to complete total 7-day course. During the hospital stay patient also developed a febrile neutropenia, as well as leukopenia, for which he was given filgrastim to which he responded well, WBC count: At the time of discharge was 2.8 neutrophil count was: 2.16, blood culture and urine cultures were ne gative. Patient also has chronic thrombocytopenia: Platelet count was on lower than baseline, there was no obvious Bleeding no petechiae or purpura, aspirin has been kept on hold on discharge. For his recent history of A. fib, he has been continued on metoprolol 25 mg p.o. twice daily, Cardizem 120 has been kept on hold for now as his blood pressure has been on the softer side, and hIS heart rate has been pretty well controlled on metoprolol. Overall patient responded well to above medical management and he is being discharged in stable condition to home. Patient will continue to follow with his primary care physician as outpatient. Physical Exam Const: COMMON NORMALS: patient oriented x3 HENMT: COMMON NORMALS: normocephalic and atraumatic HEAD & SCALP: normocephalic and atraumatic Resp: COMMON NORMALS: clear to auscultation bilaterally EFFORT & INSPECTION: Yes symmetric chest movement AUSCULTATION: clear to auscultation bilaterally Cardio: COMMON NORMALS: regular rate, regular rhythm, S1 normal heart sound present, S2 normal heart sound present, No gallops present (Cardio), No murmurs present (Cardio), No rub (Cardio) and Peripheral pulses 2+ throughout RATE: regular rate RHYTHM: regular rhythm HEART SOUNDS: S1 normal heart sound present and S2 normal heart sound present PERIPHERAL PULSES: Peripheral pulses 2+ throughout GI: COMMON NORMALS: Normal to inspection, nondistended, normoactive bowel sounds present, Soft to palpation, non-tender, No hepatosplenomegaly present and no masses AUSCULTATION: Yes normoactive bowel sounds PALPATION: Yes Soft to palpation and Yes No hepatosplenomegaly present RECTAL EXAM: Yes deferred Extremity: COMMON NORMALS: no clubbing, cyanosis or edema and no pedal edema Neuro: COMMON NORMALS: patient oriented x3 Discharge Data Studies Completed and Pending Completed Studies During Hospitalization Category Date Time Status CT abdomen pelvis wo con [id number] Urgent Cat Scan 09/19/21 02:[address] head wo con* [id number] Routine Cat Scan 09/19/21 12:06 Completed Pending at discharge Category Date Time Status Blood Culture Stat Lab 09/19/21 13:05 Results CBC Auto Diff [Complete Blood Count w/Auto] AM LABS Lab 09/23/21 04:00 Ordered CMP [Comprehensive Metabolic Panel] AM LABS Lab 09/23/21 04:00 Ordered Radiology Impressions Abdomen/Pelvis CT 09/19/21 02:40 IMPRESSION: No acute findings. COMMENTS: Consistent with the [employer]'s Incidental Findings Committee white paper (J Am Wendy Radiol 2018): Any incidental renal lesion less than 1 cm or classified as too small to characterize, or any incidental cystic renal lesion characterized as simple-appearing, is likely benign. No follow-up imaging is recommended for these lesions per consensus recommendations based on imaging criteria. Head CT 09/19/21 12:06 IMPRESSION: No acute intracranial abnormality. Laboratory Results WBC 2.8 10^3/uL (4.0-10.0) L 09/22/21 08:21 RBC 3.94 10^6/uL (4.1-5.3) L 09/22/21 08:21 Hgb 10.8 g/dL (11.7-16.6) L 09/22/21 08:21 Hct 32.3 % (42.0-52.0) L 09/22/21 08:21 MCV 82.0 fl (80-94) 09/22/21 08:21 MCH 27.4 pg (28.0-34.0) L 09/22/21 08:21 MCHC 33.4 g/dL (30.0-36.0) 09/22/21 08:21 RDW 15.1 % (12.1-15.1) 09/22/21 08:21 Plt Count 47 10^3/cmm (130-400) L 09/22/21 08:21 MPV 11.5 fL (7.4-10.4) H 09/22/21 08:21 Neut % (Auto) 77.4 % 09/22/21 08:21 Lymph % (Auto) 12.2 % 09/22/21 08:21 [place] % (Auto) 8.6 % 09/22/21 08:21 Eos % (Auto) 0.4 % 09/22/21 08:21 Baso % (Auto) 0.7 % 09/22/21 08:21 Neut # (Auto) 2.16 10^3/uL (1.8-7.7) 09/22/21 08:21 Lymph # (Auto) 0.3 10^3/uL (0.8-4.8) L 09/22/21 08:21 [place] # (Auto) 0.2 10^3/uL (0.2-0.9) 09/22/21 08:21 Eos # (Auto) 0.0 10^3/uL (0.0-0.8) 09/22/21 08:21 Baso # (Auto) 0.0 10^3/uL (0.0-0.1) 09/22/21 08:21 Nucleated RBC % (auto) 0 % 09/22/21 08:21 Nucleated RBCs # 0.0 /100WBC 09/22/21 08:21 PT 14.90 SECONDS (12.1-14.9) 09/22/21 08:21 INR 1.14 (0.8-1.2) 09/22/21 08:21 APTT 39.1 SECONDS (23.9-36.7) H 09/22/21 08:21 Fibrinogen 338 mg/dL (174-498) 09/22/21 08:21 Sodium 135 mmol/L (136-145) L 09/22/21 08:21 Potassium 4.0 mmol/L (3.5-5.1) 09/22/21 08:21 Chloride 102 mmol/L (98-107) 09/22/21 08:21 Carbon Dioxide 23 mmol/L (22-29) 09/22/21 08:21 Anion Gap 14.0 (5-19) 09/22/21 08:21 BUN 10 mg/dL (8-23) 09/22/21 08:21 Creatinine 0.7 mg/dL (0.7-1.2) 09/22/21 08:21 GFR Calculation Not Reportable 09/22/21 08:21 Glucose 94 mg/dL (65-115) 09/22/21 08:21 Estimat Average Glucose 82 09/20/21 03:55 Hemoglobin A1c 4.5 % (4.0-6.0) 09/20/21 03:55 Calculated Osmolality 279 mOsm/kg (285-295) L 09/22/21 08:21 Lactate 1.1 mmol/L (0.5-2.2) 09/19/21 03:00 Calcium 7.8 mg/dL (8.5-10.5) L 09/22/21 08:21 Phosphorus 2.6 mg/dL (2.5-4.5) 09/20/21 03:55 Magnesium 1.7 mg/dL (1.7-2.3) 09/20/21 03:55 Iron 26 ug/dL (59-158) L 09/19/21 02:30 TIBC 210 mcg/dl 09/19/21 02:30 % Saturation 12.3 % (20-50) L 09/19/21 02:30 Unsat Iron Binding 184 ug/dL (112-347) 09/19/21 02:30 Total Bilirubin 0.3 mg/dL (0.15-1.2) 09/22/21 08:21 AST 25 U/L (0-40) 09/22/21 08:21 ALT 13 U/L (0-41) 09/22/21 08:21 Alkaline Phosphatase 145 IU/L (40-130) H 09/22/21 08:21 C-Reactive Protein 38.7 mg/L (0.0-4.9) H 09/19/21 02:30 Total Protein 5.8 g/dL (6.6-8.7) L 09/22/21 08:21 Albumin 2.6 g/dL (3.5-5.2) L 09/22/21 08:21 Globulin 3.2 g/dL (1.3-4.6) 09/22/21 08:21 Triglycerides 57 mg/dL (0-150) 09/20/21 03:55 Cholesterol 71 mg/dL (0-200) 09/20/21 03:55 LDL Cholesterol, Calc 29 mg/dL (50-129) L 09/20/21 03:55 Total VLDL Cholesterol 11 mg/dL (0-30) 09/20/21 03:55 HDL Cholesterol 31 mg/dL (60-100) L 09/20/21 03:55 Cholesterol/HDL Ratio 2.29 mg/dL (1.0-5.00) 09/20/21 03:55 Lipase 27 U/L (13-60) 09/19/21 02:30 Procalcitonin 0.12 ng/mL (0-0.5) 09/19/21 02:30 Urine Color Yellow (Yellow) 09/19/21 21:00 Urine Appearance Clear (CLEAR) 09/19/21 21:00 Urine pH 5 (5-7) 09/19/21 21:00 Ur Specific [place] 1.025 (1.005-1.030) 09/19/21 21:00 Urine Protein Neg (Negative) 09/19/21 21:00 Urine Glucose (UA) Norm (Normal) 09/19/21 21:00 Urine Ketones Negative (Negative) 09/19/21 21:00 Urine Blood 2+ (Negative) H 09/19/21 21:00 Urine Nitrate Negative (Negative) 09/19/21 21:00 Urine Bilirubin Neg (Negative) 09/19/21 21:00 Urine Urobilinogen Norm mg/dL (Negative) 09/19/21 21:00 Ur Leukocyte Esterase Trace (Negative) H 09/19/21 21:00 Urine RBC 5-10 /hpf (0-2) H 09/19/21 21:00 Urine WBC 0-4 /hpf (0-5) H 09/19/21 21:00 Ur Squamous Epith Cells 0-4 /hpf (0-5) H 09/19/21 21:00 Amorphous Sediment Not Reportable 09/19/21 21:00 Urine Bacteria Trace /hpf (NONE) 09/19/21 21:00 Urine Mucus 2+ /hpf 09/19/21 21:00 Urine Yeast Trace /hpf 09/19/21 21:00 Vitals Last Vital Signs Temp 98.4 F 09/22/21 07:12 Pulse 93 09/22/21 10:00 Resp 18 09/22/21 10:00 BP 108/61 09/22/21 07:12 Pulse Ox 93 09/22/21 10:00 Discharge Plan Discharge Patient Disposition: Home Condition: Stable Prescriptions: New vancomycin 1,000 mg Recon Soln 500 mg PO QID 4 Days Qty: 16 0RF Continued morphine 30 mg tablet extended release 60 mg PO Q12H 30 Days Qty: 120 0RF Trelegy Ellipta 100-62.5-25 mcg blister with device 1 inh inhalation DAILY Qty: 60 3RF oxycodone-acetaminophen [Percocet] 5-325 mg tablet 1 - 2 tab PO .q4-6h PRN (Reason: pain) 30 Days Qty: 60 0RF clonazepam [Klonopin] 1 mg tablet 1 mg PO TID Qty: 90 3RF ondansetron HCl 8 mg tablet 8 mg PO .q8hr PRN (Reason: nausea and vomiting) Qty: 30 1RF omeprazole 40 mg capsule,delayed release(DR/EC) 40 mg PO DAILY 0RF albuterol sulfate [Ventolin HFA] 90 mcg/actuation HFA aerosol inhaler 1 - 2 puff inhalation Q4H PRN (Reason: Shortness Of Breath) 0RF metoprolol tartrate 25 mg Tablet 25 mg PO BID@0900,2100 Qty: 180 0RF Held diltiazem HCl 120 mg Capsule,Extended Release 24hr 120 mg PO DAILY Qty: 30 0RF Hold Instructions: Resume on 10/06/21. aspirin [Adult Low Dose Aspirin] 81 mg tablet,delayed release (DR/EC) 81 mg PO DAILY Qty: 30 0RF Hold Instructions: Resume on 10/13/21. Discontinued doxycycline monohydrate 100 mg Tablet 100 mg PO BID Qty: 10 0RF vancomycin 1,000 mg Recon Soln 125 mg PO Q6H Qty: 40 0RF Discharge Orders: Discharge Order (Routine); Ordered 09/22/21 Ordered By: Jose Cruz Coles Referrals: [facility] [Outside] Nicholas Bergman MD [Primary Care Provider] - 2 weeks Discharge Diet: Regular Patient Instructions: Clostridium Difficile, Vancomycin (By mouth), Neutropenia (IP), Fall Prevention (GEN), Opioid Safety Discharge Attestations Time Spent in Discharge Care*: greater than 30 min Specific Discharge Activities: educating patient, educating and/or supporting family/caregiver, discussing with case manager/social workers/dc planners, documenting/other paperwork and evaluating patient/reviewing data Quality Metrics Clinical Quality Measures [ No reported AMI, CVA or VTE this stay] Coding Level of Care Code Acute Chg FW DC note Diagnoses C. difficile colitis A04.72 Fall W19.XXXA Dizziness R42 Major depressive disorder, recurrent F33.9 Cancer cachexia R64 Protein-energy malnutrition E46 Leukopenia D72.819 Thrombocytopenia D69.6 Splenomegaly R16.1 Gastric varices I86.4 Cancer of left lung C34.92 Neutropenia D70.9
--- NOTE | 2021-09-22 10:43 | PC.NURSE ---
IMM IMM updated with patient, copy of page 2 provided. Patient verbalized understanding. Initial dated, timed and placed in chart.
--- NOTE | 2021-09-22 13:47 | PC.NURSE ---
Discussed discharge, follow up appointments and all medication list. Patient is to go to oncologyf once discharged from room.
== END 2021-09-22 16:00 | disposition home health service (06) | DRG 371 ==
LOC: ER 05:37 → MEDSURG 05:58
PROVIDERS: Student in an Organized Health Care Education/Training Program; Admitting Provider Student in an Organized Health Care Education/Training Program; Emergency Provider Emergency Medicine; PCP Family Medicine; Visit Provider Internal Medicine
DX: A04.72 Enterocolitis due to Clostridium difficile, not specified as recurrent (principal); E43 Unspecified severe protein-calorie malnutrition; C34.92 Malignant neoplasm of unspecified part of left bronchus or lung; F33.9 Major depressive disorder, recurrent, unspecified; Z68.1 Body mass index [BMI] 19.9 or less, adult; D61.818 Other pancytopenia; R64 Cachexia; F41.9 Anxiety disorder, unspecified; I48.91 Unspecified atrial fibrillation; G89.3 Neoplasm related pain (acute) (chronic); J44.9 Chronic obstructive pulmonary disease, unspecified; K21.9 Gastro-esophageal reflux disease without esophagitis; I10 Essential (primary) hypertension; F43.12 Post-traumatic stress disorder, chronic; F17.210 Nicotine dependence, cigarettes, uncomplicated; W19.XXXA Unspecified fall, initial encounter; Z66 Do not resuscitate; R42 Dizziness and giddiness; Z79.51 Long term (current) use of inhaled steroids; Z79.891 Long term (current) use of opiate analgesic; D70.9 Neutropenia, unspecified; I86.4 Gastric varices; R16.1 Splenomegaly, not elsewhere classified; D69.6 Thrombocytopenia, unspecified
CPT/HCPCS: 36415; 70450; 74176; 80053; 80061; 81001; 83036; 83540; 83550; 83605; 83690; 83735; 84100; 84145; 85025; 85384; 85610; 85730; 86140; 86403; 87040; 87086; 94640; 94664; 96372; 96374; 96375; 97110; 97116; 97162; 97530; 99285; J1442; J1650; J2270; J2405; J3370; J7030; S0030

== ENCOUNTER 2021-10-04 06:00 | Oncology outpatient (recurring) (ONCR) | payer MEDICARE, MEDICAID, SELFPAY | END 2021-10-04 23:59 | disposition home or self-care (01) | LOC: ONCMED 10-20 06:58 | PROVIDERS: PCP Family Medicine; Visit Provider Specialist | DX: C34.90 Malignant neoplasm of unspecified part of unspecified bronchus or lung (principal); C34.92 Malignant neoplasm of unspecified part of left bronchus or lung; Z51.0 Encounter for antineoplastic radiation therapy | CPT/HCPCS: 77014; 77386 ==

== ENCOUNTER 2021-10-09 23:09 | Inpatient (IN) | payer MEDICARE, MEDICAID, SELFPAY ==
[2021-10-09 23:12] VITALS: BP 132/50; PULSE 101; RESP 20; TEMP 37.1; O2SAT 94; BMI 16.9
--- NOTE | 2021-10-09 23:16 | ECG_ITS ---
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 Measurements Intervals [place] Rate: 112 P: 100 SC: 145 QRS: 84 QRSD: 75 T: 96 QT: 328 QTc: 450 Interpretive Statements SINUS TACHYCARDIA WITH OCCASIONAL SUPRAVENTRICULAR PREMATURE COMPLEXES ABNORMAL RHYTHM ECG Compared to ECG 09/14/2021 15:48:49 Sinus rhythm no longer present Electronically Signed On 10-10-2021 20:58:39 CDT by Radha Barclay M.D. [id number]
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
[2021-10-09] MEDS: sodium chloride 0.9% 500 ML 999 ML IV (23:21)
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
[2021-10-09 23:43] VITALS: RESP 28
[2021-10-09] MEDS: morphine 4 mg/mL SDV 1 mL IVP (23:43)
[2021-10-09 23:44] LABS: Basophils % 0.6 %; Hematocrit 27.8 % (42.0-52.0); Hemoglobin 8.9 g/dL (11.7-16.6); Lymphocytes # 0.1 10^3/uL (0.8-4.8); Mean Corpuscular Hemoglobin 27.7 pg (28.0-34.0); Mean Corpuscular Volume 86.6 fl (80-94); Mean Platelet Volume 12.4 fL (7.4-10.4); Monocytes # 0.1 10^3/uL (0.2-0.9); Monocytes % 4.8 %; Neutrophils # 1.49 10^3/uL (1.8-7.7); Neutrophils % 90.4 %; Nucleated Red Blood Cells % 0 %; Red Blood Count 3.21 10^6/uL (4.1-5.3); Red Cell Distribution Width 16.2 % (12.1-15.1); White Blood Count 1.7 10^3/uL (4.0-10.0)
[2021-10-09 23:55] LABS: INR 1.06 (0.8-1.2)
[2021-10-10] VITALS (66 sets, daily range): BP systolic 86–129; BP diastolic 35–61; PULSE 78–101; RESP 13–30; TEMP 36.4–36.5; O2SAT 92–100; BMI 16.5
[2021-10-10 00:01] LABS: Platelet Count 50 10^3/cmm (130-400); Slide Review Slide Review Perform
[2021-10-10 00:17] LABS: Alanine Aminotransferase 22 U/L (0-41); Albumin Level 2.8 g/dL (3.5-5.2); Alkaline Phosphatase 402 IU/L (40-130); Anion Gap 13.6 (5-19); Aspartate Amino Transferase 17 U/L (0-40); Blood Urea Nitrogen 13 mg/dL (8-23); Calcium 7.7 mg/dL (8.5-10.5); Carbon Dioxide 22 mmol/L (22-29); Chloride 105 mmol/L (98-107); Globulin 2.8 g/dL (1.3-4.6); Glucose 131 mg/dL (65-115); NT Pro B Type Natriuretic Pept 911 pg/mL (0-125); Osmolality Calculated 286 mOsm/kg (285-295); Potassium 3.6 mmol/L (3.5-5.1); Sodium 137 mmol/L (136-145); Total Bilirubin 0.9 mg/dL (0.15-1.2); Total Protein 5.6 g/dL (6.6-8.7)
[2021-10-10] MEDS: ipratropium-albuterol 3 mL Neb INHALATION ×4 (00:49→20:28)
[2021-10-10 00:58] LABS: ABG PH Result 7.45 (7.35-7.45); Arterial Blood Gas Hematocrit 19.8 % (42-52); Base Excess ABG -0.7 mmol/L (-2.0-2.0); Blood Gas Allen Test Pos; Blood Gas Sample Site Radial, right; Blood Gas Sample Type Arterial; Carboxyhemoglobin 3.7 %THgb (0.4-20.1); HCO3 ABG 23.1 mmol/L (22-26); HGB O2 Sat 91.8 % (95-100); Methemoglobin 1.2 % (0.4-1.5); Oxygen Device NC; PO2 ABG 69.5 mmHg (80.0-100.0); Total Hemoglobin 6.5 g/dL (14-18)
[2021-10-10] MEDS: neomycin-poly-bacitracin oint 28 gm 1 APPLIC TOPICAL (01:48)
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
[2021-10-10] MEDS: morphine 4 mg/mL SDV 1 mL IVP ×5 (04:18→22:25)
--- NOTE | 2021-10-10 06:55 | PC.NURSE ---
Bedside report completed with PAUL Miller.
[2021-10-10] MEDS: budesonide 0.5 mg/2 mL Neb 0.25 MG INHALATION ×2 (07:19→20:28)
[2021-10-10] MEDS: pantoprazole 40 mg SDV IVP (09:49)
[2021-10-10] MEDS: nicotine 21 mg Patch 1 PATCH TRANSDERMA (10:24)
[2021-10-10] MEDS: silver sulfadiazine cream 1% 50 gm 1 APPLIC TOPICAL ×2 (15:15→21:03)
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
--- NOTE | 2021-10-10 19:18 | PC.NURSE ---
Shift Note Pt rested in bed throughout shift. He complained of rib pain, several times. Morphine admin 3x this shift. O2 sats remained greater than 92% on 4 lpm/NC. He ate well at dinner. At end of shift he stated his voice was better. He has urinated several times, usually 175ml each time. He has had a small BM. His javier were pink with no purulent drainage noted, silvedene applied. Frequent safety and comfort rounds continue. Orders and/or nursing care completed as indicated. Patient monitored for response to intervention and treatment(s). Education provided includes Silvadene, protoninx and morphine . Patient and/or inside technical sales representative verbalized understanding of education and paln of care.. Will continue to monitor.
[2021-10-10] MEDS: bacitracin ointment 28 gm 1 APPLIC TOPICAL (21:03)
[2021-10-11] VITALS (32 sets, daily range): BP systolic 90–129; BP diastolic 37–69; PULSE 88–123; RESP 13–33; TEMP 36.3–36.7; O2SAT 71–99
[2021-10-11] MEDS: saline nasal spray 44mL Btl 1 SPRAY NASAL (00:54)
[2021-10-11] MEDS: blistex lip oint 7 gm Tube 1 APPLIC TOPICAL (00:55)
[2021-10-11] MEDS: morphine 4 mg/mL SDV 1 mL IVP ×3 (02:18→10:57)
[2021-10-11] MEDS: ipratropium-albuterol 3 mL Neb INHALATION ×3 (02:35→14:51)
[2021-10-11] MEDS: CLONazepam 1 mg Tablet PO ×4 (05:09→21:36)
--- NOTE | 2021-10-11 07:39 | PC.NURSE ---
Bedside report completed with Nicole Espino RN.
[2021-10-11] MEDS: pantoprazole 40 mg SDV IVP (08:36)
[2021-10-11] MEDS: silver sulfadiazine cream 1% 50 gm 1 APPLIC TOPICAL (08:39)
[2021-10-11] MEDS: bacitracin ointment 28 gm 1 APPLIC TOPICAL (08:40)
[2021-10-11] MEDS: budesonide 0.5 mg/2 mL Neb 0.25 MG INHALATION (08:41)
[2021-10-11] MEDS: nicotine 21 mg Patch 1 PATCH TRANSDERMA (10:49)
[2021-10-11] MEDS: metoprolol tartrate 25 mg Tablet PO ×2 (11:12→21:41)
[2021-10-11] MEDS: levoFLOXacin 500 mg Tablet PO (11:12)
[2021-10-11] MEDS: morphine ER (12 HR) 15 mg Tablet PO (11:13)
--- NOTE | 2021-10-11 13:47 | PC.NURSE ---
Patient transferred to second floor room 268. Chart and antibiotics left with nurse at bedside. Patient resting in bed with nurse at bedside.
[2021-10-11] MEDS: morphine IR 15 mg Tablet PO (16:02)
[2021-10-11] MEDS: amoxicillin-clav 500-125 mg Tablet 1 TAB PO ×2 (16:03→21:36)
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
[2021-10-11 19:11] LABS: Basophils % 0.5 %; Hematocrit 28.8 % (42.0-52.0); Hemoglobin 9.1 g/dL (11.7-16.6); Lymphocytes # 0.1 10^3/uL (0.8-4.8); Lymphocytes % 4.2 %; Mean Corpuscular HGB Conc 31.6 g/dL (30.0-36.0); Mean Corpuscular Hemoglobin 27.2 pg (28.0-34.0); Mean Corpuscular Volume 86.2 fl (80-94); Mean Platelet Volume 12.9 fL (7.4-10.4); Monocytes # 0.2 10^3/uL (0.2-0.9); Monocytes % 8.9 %; Neutrophils # 1.46 10^3/uL (1.8-7.7); Neutrophils % 76.9 %; Nucleated Red Blood Cells % 0 %; Platelet Count 50 10^3/cmm (130-400); Red Blood Count 3.34 10^6/uL (4.1-5.3); Red Cell Distribution Width 16.4 % (12.1-15.1); White Blood Count 1.9 10^3/uL (4.0-10.0)
[2021-10-11 19:36] LABS: Alanine Aminotransferase 17 U/L (0-41); Albumin Level 2.8 g/dL (3.5-5.2); Alkaline Phosphatase 290 IU/L (40-130); Anion Gap 12.8 (5-19); Aspartate Amino Transferase 15 U/L (0-40); Blood Urea Nitrogen 13 mg/dL (8-23); Calcium 8.2 mg/dL (8.5-10.5); Carbon Dioxide 25 mmol/L (22-29); Chloride 106 mmol/L (98-107); Glucose 117 mg/dL (65-115); Osmolality Calculated 291 mOsm/kg (285-295); Potassium 3.8 mmol/L (3.5-5.1); Sodium 140 mmol/L (136-145); Total Bilirubin 0.4 mg/dL (0.15-1.2); Total Protein 5.8 g/dL (6.6-8.7)
[2021-10-11 19:56] LABS: Slide Review Slide Review Perform
[2021-10-12] VITALS (13 sets, daily range): BP systolic 102–123; BP diastolic 55–71; PULSE 60–96; RESP 16–30; TEMP 36.3–37; O2SAT 91–99
[2021-10-12] MEDS: morphine ER (12 HR) 15 mg Tablet PO (00:15)
[2021-10-12 05:01] LABS: Basophils % 0.5 %; Hematocrit 29.8 % (42.0-52.0); Hemoglobin 9.2 g/dL (11.7-16.6); Lymphocytes # 0.1 10^3/uL (0.8-4.8); Mean Corpuscular HGB Conc 30.9 g/dL (30.0-36.0); Mean Corpuscular Hemoglobin 26.9 pg (28.0-34.0); Mean Corpuscular Volume 87.1 fl (80-94); Monocytes # 0.2 10^3/uL (0.2-0.9); Monocytes % 10.1 %; Neutrophils # 1.58 10^3/uL (1.8-7.7); Neutrophils % 79.4 %; Nucleated Red Blood Cells % 0 %; Platelet Count 56 10^3/cmm (130-400); Red Blood Count 3.42 10^6/uL (4.1-5.3); Red Cell Distribution Width 16.5 % (12.1-15.1)
[2021-10-12 05:21] LABS: Anion Gap 11.1 (5-19); Blood Urea Nitrogen 12 mg/dL (8-23); Calcium 8.3 mg/dL (8.5-10.5); Carbon Dioxide 24 mmol/L (22-29); Chloride 105 mmol/L (98-107); Glucose 99 mg/dL (65-115); Magnesium 1.6 mg/dL (1.7-2.3); Osmolality Calculated 282 mOsm/kg (285-295); Potassium 4.1 mmol/L (3.5-5.1); Sodium 136 mmol/L (136-145)
[2021-10-12 05:26] LABS: Slide Review Slide Review Perform
[2021-10-12] MEDS: morphine IR 15 mg Tablet PO ×3 (05:27→14:29)
[2021-10-12] MEDS: levoFLOXacin 500 mg Tablet PO (05:27)
[2021-10-12] MEDS: ipratropium-albuterol 3 mL Neb INHALATION ×3 (09:09→19:38)
[2021-10-12] MEDS: budesonide 0.5 mg/2 mL Neb 0.25 MG INHALATION ×2 (09:09→19:38)
[2021-10-12] MEDS: amoxicillin-clav 500-125 mg Tablet 1 TAB PO ×3 (09:17→19:57)
[2021-10-12] MEDS: pantoprazole 40 mg SDV IVP (09:18)
[2021-10-12] MEDS: aspirin 81 mg EC Tablet PO (09:18)
[2021-10-12] MEDS: CLONazepam 1 mg Tablet PO ×2 (09:18→14:18)
[2021-10-12] MEDS: nicotine 21 mg Patch 1 PATCH TRANSDERMA (09:24)
[2021-10-12] MEDS: metoprolol tartrate 25 mg Tablet PO ×2 (10:37→19:56)
[2021-10-12] MEDS: silver sulfadiazine cream 1% 50 gm 1 APPLIC TOPICAL (10:38)
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
[2021-10-12 15:41] LABS: SARS Covid-2 Antigen Negative (Negative)
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
[2021-10-12] MEDS: CLONazepam 0.5 mg Tablet PO ×2 (17:50→19:57)
[2021-10-13] VITALS (15 sets, daily range): BP systolic 91–117; BP diastolic 51–64; PULSE 85–107; RESP 14–20; TEMP 36.6–36.8; O2SAT 90–99
[2021-10-13] MEDS: morphine ER (12 HR) 15 mg Tablet PO ×2 (00:11→23:13)
[2021-10-13] MEDS: ipratropium-albuterol 3 mL Neb INHALATION ×4 (02:34→19:47)
[2021-10-13] MEDS: levoFLOXacin 500 mg Tablet PO (06:34)
[2021-10-13] MEDS: budesonide 0.5 mg/2 mL Neb 0.25 MG INHALATION ×2 (08:15→19:47)
[2021-10-13] MEDS: aspirin 81 mg EC Tablet PO (08:38)
[2021-10-13] MEDS: pantoprazole 40 mg SDV IVP (08:38)
[2021-10-13] MEDS: CLONazepam 0.5 mg Tablet PO ×4 (08:38→20:17)
[2021-10-13] MEDS: amoxicillin-clav 500-125 mg Tablet 1 TAB PO ×3 (08:38→20:17)
[2021-10-13] MEDS: metoprolol tartrate 25 mg Tablet PO ×2 (08:38→20:18)
--- NOTE | 2021-10-13 09:02 | PC.SOCIAL ---
IMM Update Imm updated with patient, copy of page 2 provided. Patient verbalized understanding. Copy initialed, dated and timed, placed in chart.
[2021-10-13 09:17] LABS: Basophils % 0.8 %; Hematocrit 30.1 % (42.0-52.0); Hemoglobin 9.5 g/dL (11.7-16.6); Lymphocytes # 0.1 10^3/uL (0.8-4.8); Lymphocytes % 6.6 %; Mean Corpuscular HGB Conc 31.6 g/dL (30.0-36.0); Mean Corpuscular Hemoglobin 27.2 pg (28.0-34.0); Mean Corpuscular Volume 86.2 fl (80-94); Mean Platelet Volume 12.1 fL (7.4-10.4); Monocytes # 0.2 10^3/uL (0.2-0.9); Neutrophils % 78.6 %; Nucleated Red Blood Cells % 0 %; Platelet Count 51 10^3/cmm (130-400); Red Blood Count 3.49 10^6/uL (4.1-5.3); Red Cell Distribution Width 16.6 % (12.1-15.1); White Blood Count 1.2 10^3/uL (4.0-10.0)
[2021-10-13 09:37] LABS: Anion Gap 12.2 (5-19); Blood Urea Nitrogen 12 mg/dL (8-23); Calcium 8.3 mg/dL (8.5-10.5); Carbon Dioxide 25 mmol/L (22-29); Chloride 104 mmol/L (98-107); Glucose 99 mg/dL (65-115); Magnesium 1.9 mg/dL (1.7-2.3); Osmolality Calculated 284 mOsm/kg (285-295); Potassium 4.2 mmol/L (3.5-5.1); Sodium 137 mmol/L (136-145)
[2021-10-13 11:41] LABS: Slide Review Slide Review Perform
[2021-10-13 11:44] LABS: Neutrophils # 0.95 10^3/uL (1.8-7.7)
[2021-10-13] MEDS: morphine IR 15 mg Tablet PO (12:46)
[2021-10-13] MEDS: silver sulfadiazine cream 1% 50 gm 1 APPLIC TOPICAL (13:35)
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
[2021-10-13] MEDS: oxyCODONE-APAP 5-325 mg Tablet 1 TAB PO (20:18)
[2021-10-14] VITALS (23 sets, daily range): BP systolic 90–103; BP diastolic 41–58; PULSE 80–111; RESP 13–22; TEMP 36.2–37.1; O2SAT 88–93
[2021-10-14] MEDS: oxyCODONE-APAP 5-325 mg Tablet 1 TAB PO ×2 (00:20→12:27)
[2021-10-14] MEDS: morphine 4 mg/mL SDV 1 mL IVP (00:43)
[2021-10-14] MEDS: ipratropium-albuterol 3 mL Neb INHALATION ×4 (02:42→20:31)
[2021-10-14 04:32] LABS: Basophils % 1.1 %; Hematocrit 26.4 % (42.0-52.0); Hemoglobin 8.8 g/dL (11.7-16.6); Lymphocytes # 0.1 10^3/uL (0.8-4.8); Lymphocytes % 12.6 %; Mean Corpuscular HGB Conc 33.3 g/dL (30.0-36.0); Mean Corpuscular Hemoglobin 27.6 pg (28.0-34.0); Mean Corpuscular Volume 82.8 fl (80-94); Mean Platelet Volume 12.9 fL (7.4-10.4); Monocytes # 0.2 10^3/uL (0.2-0.9); Neutrophils % 63.1 %; Nucleated Red Blood Cells % 0 %; Platelet Count 58 10^3/cmm (130-400); Red Blood Count 3.19 10^6/uL (4.1-5.3); Red Cell Distribution Width 16.5 % (12.1-15.1)
[2021-10-14 04:54] LABS: Anion Gap 12.1 (5-19); Blood Urea Nitrogen 14 mg/dL (8-23); Carbon Dioxide 24 mmol/L (22-29); Chloride 106 mmol/L (98-107); Glucose 133 mg/dL (65-115); Magnesium 1.9 mg/dL (1.7-2.3); Osmolality Calculated 288 mOsm/kg (285-295); Potassium 4.1 mmol/L (3.5-5.1); Sodium 138 mmol/L (136-145)
--- NOTE | 2021-10-14 05:15 | PC.NURSE ---
Patient been having severe pain all night. Finally sleeping at this time. AM meds not given. Returned [facility]
[2021-10-14] MEDS: amoxicillin-clav 500-125 mg Tablet 1 TAB PO ×3 (08:19→21:22)
[2021-10-14] MEDS: levoFLOXacin 500 mg Tablet PO (08:19)
[2021-10-14] MEDS: pantoprazole 40 mg SDV IVP (08:20)
[2021-10-14] MEDS: CLONazepam 0.5 mg Tablet PO ×4 (08:20→21:22)
[2021-10-14] MEDS: aspirin 81 mg EC Tablet PO (08:20)
[2021-10-14] MEDS: budesonide 0.5 mg/2 mL Neb 0.25 MG INHALATION ×2 (08:25→20:29)
[2021-10-14] MEDS: metoprolol tartrate 25 mg Tablet PO ×2 (08:25→21:22)
[2021-10-14] MEDS: silver sulfadiazine cream 1% 50 gm 1 APPLIC TOPICAL (10:28)
[2021-10-14] MEDS: morphine ER (12 HR) 15 mg Tablet PO (11:10)
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
[2021-10-14] MEDS: morphine IR 15 mg Tablet PO ×2 (16:43→21:22)
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
[2021-10-14] MEDS: donepezil 5 MG Tablet 10 MG PO (21:22)
[2021-10-15] VITALS (20 sets, daily range): BP systolic 92–113; BP diastolic 54–69; PULSE 82–110; RESP 14–20; TEMP 36.3–36.7; O2SAT 91–100
[2021-10-15] MEDS: morphine ER (12 HR) 15 mg Tablet PO ×2 (00:31→11:42)
[2021-10-15] MEDS: nicotine 21 mg Patch 1 PATCH TRANSDERMA (01:57)
[2021-10-15 02:33] LABS: SARS Covid-2 Antigen Negative (Negative)
[2021-10-15] MEDS: ipratropium-albuterol 3 mL Neb INHALATION ×3 (02:36→22:42)
[2021-10-15] MEDS: morphine IR 15 mg Tablet PO ×4 (03:37→20:29)
[2021-10-15] MEDS: levoFLOXacin 500 mg Tablet PO (05:30)
[2021-10-15] MEDS: budesonide 0.5 mg/2 mL Neb 0.25 MG INHALATION ×2 (08:50→22:42)
[2021-10-15] MEDS: CLONazepam 0.5 mg Tablet PO ×4 (09:11→20:29)
[2021-10-15] MEDS: amoxicillin-clav 500-125 mg Tablet 1 TAB PO ×3 (09:11→20:29)
[2021-10-15] MEDS: aspirin 81 mg EC Tablet PO (09:12)
[2021-10-15] MEDS: pantoprazole 40 mg SDV IVP (09:12)
[2021-10-15] MEDS: silver sulfadiazine cream 1% 50 gm 1 APPLIC TOPICAL (09:54)
[2021-10-15] MEDS: metoprolol tartrate 25 mg Tablet PO ×2 (09:54→20:29)
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
[2021-10-15] MEDS: oxyCODONE-APAP 5-325 mg Tablet 1 TAB PO (18:25)
[2021-10-15] MEDS: donepezil 5 MG Tablet 10 MG PO (20:29)
[2021-10-16] VITALS (18 sets, daily range): BP systolic 95–114; BP diastolic 54–61; PULSE 73–114; RESP 16–22; TEMP 36.3–36.8; O2SAT 93–100
[2021-10-16] MEDS: oxyCODONE-APAP 5-325 mg Tablet 1 TAB PO ×2 (01:15→21:02)
[2021-10-16] MEDS: morphine IR 15 mg Tablet PO ×3 (03:38→12:57)
[2021-10-16] MEDS: ipratropium-albuterol 3 mL Neb INHALATION ×4 (03:50→22:49)
[2021-10-16] MEDS: levoFLOXacin 500 mg Tablet PO (06:04)
[2021-10-16] MEDS: amoxicillin-clav 500-125 mg Tablet 1 TAB PO (07:43)
[2021-10-16] MEDS: aspirin 81 mg EC Tablet PO (07:44)
[2021-10-16] MEDS: CLONazepam 0.5 mg Tablet PO ×4 (07:45→20:59)
[2021-10-16] MEDS: metoprolol tartrate 25 mg Tablet PO ×2 (07:45→20:59)
[2021-10-16] MEDS: pantoprazole 40 mg SDV IVP (07:50)
[2021-10-16] MEDS: budesonide 0.5 mg/2 mL Neb 0.25 MG INHALATION ×2 (09:49→22:49)
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
[2021-10-16] MEDS: morphine ER (12 HR) 15 mg Tablet PO ×2 (15:24)
[2021-10-16] MEDS: famotidine 20 mg Tablet PO (17:25)
[2021-10-16] MEDS: silver sulfadiazine cream 1% 50 gm 1 APPLIC TOPICAL ×2 (17:25→21:00)
[2021-10-16] MEDS: donepezil 5 MG Tablet 10 MG PO (20:59)
[2021-10-17] VITALS (17 sets, daily range): BP systolic 94–122; BP diastolic 52–62; PULSE 75–101; RESP 12–20; TEMP 36–36.6; O2SAT 92–100
[2021-10-17] MEDS: morphine ER (12 HR) 15 mg Tablet PO ×2 (01:02→11:13)
[2021-10-17 04:54] LABS: Hematocrit 29.2 % (42.0-52.0); Hemoglobin 9.5 g/dL (11.7-16.6); Lymphocytes # 0.1 10^3/uL (0.8-4.8); Lymphocytes % 12.9 %; Mean Corpuscular HGB Conc 32.5 g/dL (30.0-36.0); Mean Corpuscular Hemoglobin 27.1 pg (28.0-34.0); Mean Corpuscular Volume 83.2 fl (80-94); Mean Platelet Volume 12.1 fL (7.4-10.4); Monocytes # 0.2 10^3/uL (0.2-0.9); Monocytes % 16.8 %; Neutrophils % 65.3 %; Nucleated Red Blood Cells % 0 %; Platelet Count 73 10^3/cmm (130-400); Red Blood Count 3.51 10^6/uL (4.1-5.3); Red Cell Distribution Width 16.6 % (12.1-15.1)
[2021-10-17 05:23] LABS: Alanine Aminotransferase 71 U/L (0-41); Albumin Level 2.4 g/dL (3.5-5.2); Alkaline Phosphatase 567 IU/L (40-130); Anion Gap 13.1 (5-19); Aspartate Amino Transferase 69 U/L (0-40); Blood Urea Nitrogen 11 mg/dL (8-23); Calcium 8.4 mg/dL (8.5-10.5); Carbon Dioxide 25 mmol/L (22-29); Chloride 104 mmol/L (98-107); Globulin 3.4 g/dL (1.3-4.6); Glucose 125 mg/dL (65-115); Osmolality Calculated 287 mOsm/kg (285-295); Potassium 4.1 mmol/L (3.5-5.1); Sodium 138 mmol/L (136-145); Total Bilirubin 0.3 mg/dL (0.15-1.2); Total Protein 5.8 g/dL (6.6-8.7)
[2021-10-17 05:29] LABS: Neutrophils # 0.66 10^3/uL (1.8-7.7)
[2021-10-17] MEDS: morphine IR 15 mg Tablet PO ×4 (05:47→17:06)
[2021-10-17] MEDS: budesonide 0.5 mg/2 mL Neb 0.25 MG INHALATION (09:30)
[2021-10-17] MEDS: ipratropium-albuterol 3 mL Neb INHALATION ×2 (09:31→14:08)
--- NOTE | 2021-10-17 09:32 | PC.SOCIAL ---
IMM Update Imm updated with patient, copy of page 2 provided. Patient verbalized understanding. Copy initialed, dated and timed, placed in chart.
[2021-10-17] MEDS: aspirin 81 mg EC Tablet PO (10:00)
[2021-10-17] MEDS: CLONazepam 0.5 mg Tablet PO ×4 (10:00→20:52)
[2021-10-17] MEDS: metoprolol tartrate 25 mg Tablet PO ×2 (10:00→20:52)
[2021-10-17] MEDS: famotidine 20 mg Tablet PO ×2 (10:00→17:06)
[2021-10-17] MEDS: silver sulfadiazine cream 1% 50 gm 1 APPLIC TOPICAL ×2 (10:01→22:03)
--- NOTE | 2021-10-17 11:18 | PC.NURSE ---
pt up to chair at this time, complete bed change done, patient given sandwich and coke. denies further needs at this time.
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
[2021-10-17] MEDS: fluoxetine 20 mg Capsule PO (14:53)
[2021-10-17] MEDS: oxyCODONE-APAP 5-325 mg Tablet 1 TAB PO (14:53)
--- NOTE | 2021-10-17 17:18 | PC.NURSE ---
Dressing changed to BLE per orders, pt tolerated well.
[2021-10-17] MEDS: donepezil 5 MG Tablet 10 MG PO (20:52)
[2021-10-18] VITALS (16 sets, daily range): BP systolic 90–110; BP diastolic 40–64; PULSE 76–103; RESP 16–22; TEMP 36.4–37; O2SAT 93–100
[2021-10-18] MEDS: morphine ER (12 HR) 15 mg Tablet PO ×3 (00:09→23:18)
[2021-10-18] MEDS: ipratropium-albuterol 3 mL Neb INHALATION ×3 (02:50→19:37)
[2021-10-18] MEDS: famotidine 20 mg Tablet PO ×2 (08:42→17:17)
[2021-10-18] MEDS: oxyCODONE-APAP 5-325 mg Tablet 1 TAB PO ×2 (08:42→19:58)
[2021-10-18] MEDS: fluoxetine 20 mg Capsule PO (08:42)
[2021-10-18] MEDS: CLONazepam 0.5 mg Tablet PO ×4 (08:42→20:08)
[2021-10-18] MEDS: aspirin 81 mg EC Tablet PO (08:42)
[2021-10-18] MEDS: silver sulfadiazine cream 1% 50 gm 1 APPLIC TOPICAL ×2 (08:43→20:14)
[2021-10-18] MEDS: metoprolol tartrate 25 mg Tablet PO (08:48)
[2021-10-18] MEDS: budesonide 0.5 mg/2 mL Neb 0.25 MG INHALATION ×2 (09:22→19:37)
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
[2021-10-18] MEDS: morphine IR 15 mg Tablet PO (17:17)
--- NOTE | 2021-10-18 17:31 | PC.NURSE ---
Fall pt was sitting up in chair in room, patient sitting on floor in front of chair, patient was wearing normal socks, patient reports he took his socks off and put his white ones on, placed non skid socks on patient and assisted back into chair, chair alarm placed on patient, notifed Akiko Hodges member, charge nurse. Patient without new injuries at this time. Patient became upset and demanding pain medication, ripped hospital bracelets off, redirected patient who then apologized for behavior, while vital signs being obtained patient became verbally upset again, was able to redirect patient then again apologized. Changed wound bandage at this time to left wrist due to patient removing. Dr. Coles notified and at bedside, patient pleasant at this time.
--- NOTE | 2021-10-18 18:12 | PC.NURSE ---
pt refused tele this shift. education given
[2021-10-18] MEDS: donepezil 5 MG Tablet 10 MG PO (20:08)
[2021-10-19] VITALS (18 sets, daily range): BP systolic 94–118; BP diastolic 49–65; PULSE 0–93; RESP 14–22; TEMP 36.4–36.7; O2SAT 92–100
[2021-10-19] MEDS: ipratropium-albuterol 3 mL Neb INHALATION ×4 (03:04→20:45)
[2021-10-19] MEDS: morphine IR 15 mg Tablet PO ×3 (06:45→20:18)
--- NOTE | 2021-10-19 09:43 | PC.SOCIAL ---
IMM Update Imm updated with patient, copy of page 2 provided. Patient verbalized understanding. Copy initialed, dated and timed, placed in chart.
[2021-10-19] MEDS: budesonide 0.5 mg/2 mL Neb 0.25 MG INHALATION ×2 (10:11→20:45)
[2021-10-19] MEDS: morphine ER (12 HR) 15 mg Tablet PO ×2 (10:53→22:48)
[2021-10-19] MEDS: metoprolol tartrate 25 mg Tablet PO (10:53)
[2021-10-19] MEDS: CLONazepam 0.5 mg Tablet PO ×4 (10:53→20:18)
[2021-10-19] MEDS: aspirin 81 mg EC Tablet PO (10:53)
[2021-10-19] MEDS: famotidine 20 mg Tablet PO ×2 (10:53→17:45)
[2021-10-19] MEDS: fluoxetine 20 mg Capsule PO (10:54)
[2021-10-19] MEDS: silver sulfadiazine cream 1% 50 gm 1 APPLIC TOPICAL ×2 (10:54→20:23)
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
[2021-10-19] MEDS: donepezil 5 MG Tablet 10 MG PO (20:18)
[2021-10-20] VITALS (10 sets, daily range): BP systolic 100–136; BP diastolic 47–66; PULSE 73–102; RESP 16–22; TEMP 35.8–36.9; O2SAT 82–97
[2021-10-20] MEDS: ipratropium-albuterol 3 mL Neb INHALATION ×3 (02:25→22:34)
[2021-10-20] MEDS: CLONazepam 0.5 mg Tablet PO ×4 (09:21→21:20)
[2021-10-20] MEDS: aspirin 81 mg EC Tablet PO (09:21)
[2021-10-20] MEDS: fluoxetine 20 mg Capsule PO (09:21)
[2021-10-20] MEDS: famotidine 20 mg Tablet PO ×2 (09:21→18:07)
[2021-10-20] MEDS: metoprolol tartrate 25 mg Tablet PO ×2 (09:22→21:20)
[2021-10-20] MEDS: nicotine 21 mg Patch 1 PATCH TRANSDERMA (09:25)
[2021-10-20] MEDS: silver sulfadiazine cream 1% 50 gm 1 APPLIC TOPICAL ×2 (09:26→23:33)
[2021-10-20] MEDS: morphine IR 15 mg Tablet PO (10:36)
[2021-10-20] MEDS: nystatin 100,000 unit/mL UDC 5 mL 100000 UNIT PO ×3 (12:50→20:59)
[2021-10-20] MEDS: morphine ER (12 HR) 15 mg Tablet PO ×2 (12:51→23:29)
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
[2021-10-20] MEDS: donepezil 5 MG Tablet 10 MG PO (21:20)
[2021-10-20] MEDS: budesonide 0.5 mg/2 mL Neb 0.25 MG INHALATION (22:37)
[2021-10-21] VITALS (8 sets, daily range): BP systolic 96–116; BP diastolic 57–74; PULSE 68–99; RESP 16–20; TEMP 36.6–36.9; O2SAT 90–94
[2021-10-21] MEDS: morphine IR 15 mg Tablet PO (02:34)
[2021-10-21] MEDS: ipratropium-albuterol 3 mL Neb INHALATION (09:01)
[2021-10-21] MEDS: budesonide 0.5 mg/2 mL Neb 0.25 MG INHALATION (09:01)
--- NOTE | 2021-10-21 09:09 | PC.SOCIAL ---
IMM update IMM updated with patient. Verbalized an understanding. Copy Pg 2 provided. Initialled, dated, timed, and placed in chart
[2021-10-21] MEDS: nystatin 100,000 unit/mL UDC 5 mL 100000 UNIT PO ×3 (09:24→21:50)
[2021-10-21] MEDS: fluoxetine 20 mg Capsule PO (09:25)
[2021-10-21] MEDS: aspirin 81 mg EC Tablet PO (09:25)
[2021-10-21] MEDS: CLONazepam 0.5 mg Tablet PO ×2 (09:25→15:29)
[2021-10-21] MEDS: famotidine 20 mg Tablet PO (09:25)
[2021-10-21] MEDS: silver sulfadiazine cream 1% 50 gm 1 APPLIC TOPICAL ×2 (09:30→21:50)
[2021-10-21] MEDS: metoprolol tartrate 25 mg Tablet PO (09:32)
[2021-10-21] MEDS: morphine ER (12 HR) 15 mg Tablet PO (12:12)
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
--- NOTE | 2021-10-21 16:52 | PC.NURSE ---
patient is refusing to wear monitor car operator continues to take it off. patient tries to get out of the bed and is taking off clothing and oxygen. patient has removed dressings x2 this shift and is refusing to have them reapplied. patient will not wear gown but agreed to wear home pjs. able to redirect patient for a short amount of time.
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
[2021-10-21] MEDS: donepezil 5 MG Tablet 10 MG PO (21:50)
[2021-10-22] VITALS (11 sets, daily range): BP systolic 94–115; BP diastolic 48–68; PULSE 79–105; RESP 16–20; TEMP 36.3–36.9; O2SAT 90–97
--- NOTE | 2021-10-22 03:32 | PC.NURSE ---
Blood pressure was taken when patient was right-side lying. Woke patient and asked if he would roll onto back for a more accurate blood pressure reading. Patient refused and rolled further onto right side.
[2021-10-22] MEDS: aspirin 81 mg EC Tablet PO (10:50)
[2021-10-22] MEDS: famotidine 20 mg Tablet PO ×2 (10:50→18:38)
[2021-10-22] MEDS: fluoxetine 20 mg Capsule PO (10:50)
[2021-10-22] MEDS: nystatin 100,000 unit/mL UDC 5 mL 100000 UNIT PO ×4 (10:51→20:38)
[2021-10-22] MEDS: silver sulfadiazine cream 1% 50 gm 1 APPLIC TOPICAL ×2 (10:52→20:43)
[2021-10-22] MEDS: ipratropium-albuterol 3 mL Neb INHALATION (14:13)
[2021-10-22] MEDS: ondansetron 2 mg/ML SDV 2 mL 4 MG IVP (15:05)
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
[2021-10-22] MEDS: saline nasal spray 44mL Btl 1 SPRAY NASAL (17:14)
--- NOTE | 2021-10-22 18:34 | PC.NURSE ---
Notified physician of patient putting fingers down throat this afternoon several time to make self vomit. This last time was approximately 200 ml of emesis or more.
[2021-10-22] MEDS: donepezil 5 MG Tablet 10 MG PO (20:38)
[2021-10-22] MEDS: LORazepam 0.5 mg Tablet PO (20:39)
[2021-10-22] MEDS: metoprolol tartrate 25 mg Tablet PO (20:39)
[2021-10-22] MEDS: budesonide 0.5 mg/2 mL Neb 0.25 MG INHALATION (20:57)
[2021-10-23] VITALS (13 sets, daily range): BP systolic 88–111; BP diastolic 58–67; PULSE 82–113; RESP 13–24; TEMP 36.5–36.8; O2SAT 79–99
[2021-10-23] MEDS: ondansetron 2 mg/ML SDV 2 mL 4 MG IVP ×2 (00:44→09:34)
[2021-10-23] MEDS: metoclopramide 5 mg/mL SDV 2 mL 10 MG IVP (03:14)
[2021-10-23] MEDS: budesonide 0.5 mg/2 mL Neb 0.25 MG INHALATION ×2 (09:16→20:07)
[2021-10-23] MEDS: ipratropium-albuterol 3 mL Neb INHALATION ×3 (09:16→20:07)
[2021-10-23] MEDS: nystatin 100,000 unit/mL UDC 5 mL 100000 UNIT PO ×4 (09:37→20:49)
[2021-10-23] MEDS: famotidine 20 mg Tablet PO ×2 (09:39→18:11)
[2021-10-23] MEDS: LORazepam 0.5 mg Tablet PO ×2 (09:39→20:51)
[2021-10-23] MEDS: fluoxetine 20 mg Capsule PO (09:39)
[2021-10-23] MEDS: aspirin 81 mg EC Tablet PO (09:39)
[2021-10-23] MEDS: metoprolol tartrate 25 mg Tablet PO ×2 (09:40→20:51)
[2021-10-23] MEDS: silver sulfadiazine cream 1% 50 gm 1 APPLIC TOPICAL ×2 (09:44→20:53)
[2021-10-23] MEDS: bacitracin ointment 28 gm 1 APPLIC TOPICAL ×2 (09:45→20:52)
[2021-10-23] MEDS: saline nasal spray 44mL Btl 1 SPRAY NASAL (09:45)
--- NOTE | 2021-10-23 10:59 | PC.SOCIAL ---
IMM Updated Updated pt on IMM. No questions voiced. Provided pt a copy. Initialed, dated, & timed copy in chart.
[2021-10-23] MEDS: CLONazepam 1 mg Tablet PO ×3 (11:36→20:50)
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
[2021-10-23] MEDS: donepezil 5 MG Tablet 10 MG PO (20:50)
--- NOTE | 2021-10-23 22:15 | PC.NURSE ---
patient stated he didn t feel good and had labored breathing 29 bpm bp was 89/55 hands were cold and couldn t get an [address] RODNEY called to report status of patient .
--- NOTE | 2021-10-23 22:45 | PC.NURSE ---
Dr Johnson here in patient room not able to get bp reading sats 70,s per respiratory ,family members notified
--- NOTE | 2021-10-23 22:46 | ECG_ITS ---
[facility] Test Date: 2021-10-23 Pat Name: Miguel Aguilar Department: Room: 268 Gender: Male [place]: : 1950 Requested By: Stacie Johnson Order Number: [id number] Christofer MD: Radha Barclay M.D. Measurements Intervals [place] Rate: 94 P: 104 ND: 138 QRS: 58 QRSD: 72 T: 104 QT: 356 QTc: 446 Interpretive Statements SINUS RHYTHM POSSIBLE RIGHT ATRIAL ENLARGEMENT [0.25mV P-WAVE] MARKED ST DEPRESSION, CONSIDER SUBENDOCARDIAL INJURY [0.2+ mV ST DEPRESSION] ACUTE ID Compared to ECG 10/09/2021 23:22:34 ST (T wave) deviation now present Sinus tachycardia no longer present Electronically Signed On 10-24-2021 19:01:59 CDT by Radha Barclay M.D. [id number]
--- NOTE | 2021-10-23 22:50 | PC.NURSE ---
Dr Johnson ordered ekg,high flow 02, abg's ,ns bolus, cafeteria monitor in use patient nonresponsive ,no bp reading will keep monitoring
--- NOTE | 2021-10-23 23:17 | PC.NURSE ---
patient pronounced at 23:17 family at bedside
--- NOTE | 2021-10-23 23:30 | PM.MISC ---
Miscellaneous Note Purpose of Documentation: Pronouncement Note: Paged by RN reporting his hands are cold and recheck blood pressure was 80/60 but subsequently rechecked and it was 138/80. Because he has a cold you are having trouble obtaining patient's accurate saturation. I advised him to use a different probe on the ER order for head check sats recheck vitals and call me back. Earlier patient had called RN because he said he was not feeling well. I ordered EKG and stat labs and went to evaluate patient at bedside. Telemetry was applied briefly. Patient seen sitting up in bed on oxygen mask 15 L. O2 sats 77% but not accurate. Respiratory therapist attempted to obtain ABG but pulse was very faint. Patient not responding. Pupils fixed and dilated. Appears apneic and has agonal breathing at times. I was told by nursing staff that patient is DNR/DNI but chart shows limited resuscitation: Admit to ICU. Fluid bolus ordered. I called the family over the phone who stated to keep the patient DNR/DNI. They came in right away to the hospital and were at patient's bedside. Answered all questions to family satisfaction and was present at bedside with family. Patient's and sister were both present including another family member on the phone. No spontaneous breath sounds, dolls eye sign present, no heart sounds, pupils fixed and dilated. Comfort tray provided for the family. Time of : 2316
--- NOTE | 2021-10-24 02:02 | PC.NURSE ---
[place] [facility] [place] chores
--- NOTE | 2021-10-24 05:06 | PC.NURSE ---
Belonging sent home with pts family.
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
== END 2021-10-24 02:00 | disposition expired | DRG 917 ==
LOC: ER 10-10 01:18 → ICU 10-10 01:37 → MEDSURG 10-11 13:30
PROVIDERS: Family Medicine; Student in an Organized Health Care Education/Training Program; Admitting Provider Internal Medicine; Emergency Provider Emergency Medicine; PCP Family Medicine; Visit Provider Internal Medicine
DX: T59.811A Toxic effect of smoke, accidental (unintentional), initial encounter (principal); E43 Unspecified severe protein-calorie malnutrition; C34.92 Malignant neoplasm of unspecified part of left bronchus or lung; C77.1 Secondary and unspecified malignant neoplasm of intrathoracic lymph nodes; I48.92 Unspecified atrial flutter; R45.851 Suicidal ideations; Z68.1 Body mass index [BMI] 19.9 or less, adult; Y92.013 Bedroom of single-family (private) house as the place of occurrence of the external cause; D69.6 Thrombocytopenia, unspecified; J44.9 Chronic obstructive pulmonary disease, unspecified; Z87.01 Personal history of pneumonia (recurrent); T24.202A Burn of second degree of unspecified site of left lower limb, except ankle and foot, initial encounter; T24.201A Burn of second degree of unspecified site of right lower limb, except ankle and foot, initial encounter; T23.272A Burn of second degree of left wrist, initial encounter; T22.132A Burn of first degree of left upper arm, initial encounter; F41.9 Anxiety disorder, unspecified; G89.3 Neoplasm related pain (acute) (chronic); M54.50 Low back pain, unspecified; Z79.891 Long term (current) use of opiate analgesic; K21.9 Gastro-esophageal reflux disease without esophagitis; I10 Essential (primary) hypertension; F43.12 Post-traumatic stress disorder, chronic; D64.9 Anemia, unspecified; Z66 Do not resuscitate; Z79.899 Other long term (current) drug therapy; R16.1 Splenomegaly, not elsewhere classified; D70.9 Neutropenia, unspecified; Z99.81 Dependence on supplemental oxygen; F32.A Depression, unspecified; F17.210 Nicotine dependence, cigarettes, uncomplicated
CPT/HCPCS: 36415; 36591; 36600; 71045; 77336; 77386; 80048; 80053; 82805; 83735; 83880; 85025; 85610; 87426; 92523; 92526; 92610; 93005; 94640; 94664; 96372; 96374; 96375; 99285; C9113; G0378; J1442; J2270; J2405; J2765; J2930; J3475; J7040; J7626

== ENCOUNTER 2021-10-11 08:00 | Oncology outpatient (recurring) (ONCR) | payer MEDICARE, MEDICAID, SELFPAY ==
--- NOTE | 2021-09-27 12:18 | ONCRAD TMN_ITS ---
Radiation Oncology Treatment Management Note Patient Name: Miguel Aguilar Date of : 1950 Date of Service: 09/27/2021 Attending Physician: Ti Munoz M.D. Tiago Aguilar is a 70 year-old white male recently diagnosed with a clinical stage IIIC (T4N3) non-small cell lung cancer. He was evaluated at the [facility] Emergency Department in June for dyspnea and vomiting. A chest radiograph identified a large, left upper-lobe density deviating the trachea to the right. A CT angiogram ordered on July 14, 2021 described a 13.4 cm x 9.4 cm cavitary lesion in the left upper-lobe of the lung. Mediastinal lymphadenopathy was described encasing the pulmonary artery and aorta. Bilateral supraclavicular lymphadenopathy was also reported. Splenomegaly and a 2.1 cm x 2.5 cm enhancing nodule of the left adrenal gland were noted. Ultrasound guided biopsy of a left supraclavicular lymph node was performed on July 14, 2021. The biopsy diagnosed metastatic squamous cell carcinoma. The PD-L1 expression level TPS was 10%. A PET scan ordered on July 24, 2021 demonstrated a cavitary mass compromising the entire left upper-lobe of the lung (SUV 16.8), hypermetabolic lymphadenopathy within the bilateral paratracheal, subaortic, left hilar, subcarinal, and bilateral supraclavicular lymph node regions. There was no distant metastatic disease. The patient has received 10 Gy of a prescribed 60 Nath with an intensity modulated radiotherapy plan utilizing a step and shoot treatment technique. He has been prescribed Carboplatin (AUC 2) and paclitaxel (50 mg/m???) weekly during therapy. Upon review of systems, he denied pulmonary symptoms. On physical examination, the patient weighed 130 lbs. His temperature was 97.4 ???F and the blood pressure was 92/52 mmHg. The pulse was 78 bpm and his respiratory rate was 22. Oxygen saturation while breathing room air was 99%. There was no erythema within the treatment philippe. Continue thoracic radiotherapy as prescribed. Signed by: Dr. Ti Munoz 09/27/2021 12:18:11 PM
[2021-09-27 12:42] LABS: Basophils % 0.3 %; Hematocrit 33.8 % (42.0-52.0); Hemoglobin 11.1 g/dL (11.7-16.6); Lymphocytes # 0.5 10^3/uL (0.8-4.8); Lymphocytes % 15.1 %; Mean Corpuscular HGB Conc 32.8 g/dL (30.0-36.0); Mean Corpuscular Hemoglobin 27.1 pg (28.0-34.0); Mean Corpuscular Volume 82.4 fl (80-94); Mean Platelet Volume 12.2 fL (7.4-10.4); Monocytes # 0.5 10^3/uL (0.2-0.9); Monocytes % 14.7 %; Neutrophils # 2.13 10^3/uL (1.8-7.7); Neutrophils % 68.3 %; Nucleated Red Blood Cells % 0 %; Platelet Count 52 10^3/cmm (130-400); Red Cell Distribution Width 15.6 % (12.1-15.1); White Blood Count 3.1 10^3/uL (4.0-10.0)
[2021-09-27 13:26] LABS: Alanine Aminotransferase 13 U/L (0-41); Albumin Level 3.1 g/dL (3.5-5.2); Alkaline Phosphatase 283 IU/L (40-130); Anion Gap 12.6 (5-19); Aspartate Amino Transferase 22 U/L (0-40); Blood Urea Nitrogen 10 mg/dL (8-23); Calcium 8.1 mg/dL (8.5-10.5); Carbon Dioxide 25 mmol/L (22-29); Chloride 104 mmol/L (98-107); Glucose 107 mg/dL (65-115); Osmolality Calculated 286 mOsm/kg (285-295); Potassium 3.6 mmol/L (3.5-5.1); Sodium 138 mmol/L (136-145); Total Bilirubin 0.3 mg/dL (0.15-1.2); Total Protein 6.1 g/dL (6.6-8.7)
[2021-10-04 08:47] LABS: Basophils % 0.2 %; Eosinophils % 0.4 %; Hematocrit 36.2 % (42.0-52.0); Hemoglobin 11.3 g/dL (11.7-16.6); Lymphocytes # 0.2 10^3/uL (0.8-4.8); Lymphocytes % 3.9 %; Mean Corpuscular HGB Conc 31.2 g/dL (30.0-36.0); Mean Corpuscular Hemoglobin 27.1 pg (28.0-34.0); Mean Corpuscular Volume 86.8 fl (80-94); Mean Platelet Volume 12.5 fL (7.4-10.4); Monocytes # 0.4 10^3/uL (0.2-0.9); Monocytes % 8.1 %; Neutrophils # 4.41 10^3/uL (1.8-7.7); Nucleated Red Blood Cells % 0 %; Platelet Count 76 10^3/cmm (130-400); Red Blood Count 4.17 10^6/uL (4.1-5.3); Red Cell Distribution Width 15.9 % (12.1-15.1); White Blood Count 5.1 10^3/uL (4.0-10.0)
[2021-10-04 09:08] LABS: Alanine Aminotransferase 36 U/L (0-41); Albumin Level 3.3 g/dL (3.5-5.2); Alkaline Phosphatase 774 IU/L (40-130); Anion Gap 12.3 (5-19); Aspartate Amino Transferase 47 U/L (0-40); Blood Urea Nitrogen 13 mg/dL (8-23); Calcium 8.3 mg/dL (8.5-10.5); Carbon Dioxide 26 mmol/L (22-29); Chloride 105 mmol/L (98-107); Globulin 3.7 g/dL (1.3-4.6); Glucose 100 mg/dL (65-115); Osmolality Calculated 288 mOsm/kg (285-295); Potassium 4.3 mmol/L (3.5-5.1); Sodium 139 mmol/L (136-145); Total Bilirubin 0.6 mg/dL (0.15-1.2)
[2021-10-04 09:16] VITALS: BMI 17.4
[2021-10-04] MEDS: palonosetron 0.25 mg/5 mL SDV IVP (10:04)
[2021-10-04] MEDS: acetaminophen 325 mg Tablet 650 MG PO (10:04)
[2021-10-04] MEDS: sodium chloride 0.9% 250 ML 100 ML IV (10:04)
[2021-10-04] MEDS: famotidine 20 mg/2 mL INJ IVP (10:07)
[2021-10-04] MEDS: diphenhydrAMINE 50 mg/mL SDV 1mL 25 MG IVP (10:10)
[2021-10-04] MEDS: dexamethasone 20 MG in sodium chloride 0.9% 50 ML 188 MG IV (10:11)
[2021-10-04] MEDS: CARBOplatin 190 MG in sodium chloride 0.9% 500 ML 519 MG IV (11:45)
[2021-10-04 13:14] VITALS: BP 114/55; PULSE 78; RESP 18; TEMP 36; O2SAT 98
== END 2021-10-17 23:59 | disposition home or self-care (01) ==
PROVIDERS: Internal Medicine Medical Oncology; Nurse Practitioner Family; PCP Family Medicine; Visit Provider Radiology Radiation Oncology
DX: Z53.9 Procedure and treatment not carried out, unspecified reason (principal)
CPT/HCPCS: 36591; 77336; 77386; 80053; 85025; 96367; 96375; 96413; 96417; J1100; J1200; J2469; J3490; J7030; J7040; J7050; J9045; J9267